=== PATIENT | male | born 1935 | race Caucasian/White ===

== ENCOUNTER 2016-07-25 07:01 | Outpatient (CLI) | payer MEDICARE | END 2016-07-25 07:02 | disposition home or self-care (01) | DX: Z79.899 Other long term (current) drug therapy (principal) ==

== ENCOUNTER 2017-03-10 06:53 | Outpatient (CLI) | payer MEDICARE ==
[2017-03-10 07:27] LABS: BUN - BLOOD UREA NITROGEN 15 mg/dL (6-20); CALCIUM 9.3 mg/dL (8.5-10.3); CARBON DIOXIDE - CO2 27 mmol/L (21-32); CHLORIDE 107 mmol/L (101-111); CHOL/HDL RATIO 2.7 (<5.0); CHOLESTEROL 120 mg/dL; CREATININE 1.1 mg/dL (0.6-1.2); GFR - MDRD 65 (>89); GLUCOSE 104 mg/dL (70-100); HDL CHOLESTEROL 45 mg/dL; LDL/HDL RATIO 1.4 (<3.6); POTASSIUM 4.1 mmol/L (3.5-5.0); SODIUM 141 mmol/L (135-145); TRIGLYCERIDES 55 mg/dL; VLDL CHOLESTEROL 11 mg/dL
[2017-03-10 07:31] LABS: HCT - HEMATOCRIT 41.9 % (42.0-52.0); HGB - HEMOGLOBIN 14.3 g/dL (14.0-18.0); MEAN CORPUSCULAR HEMOGLOBIN 30.3 pg (27.0-31.0); MEAN PLATELET VOLUME 7.7 fL (7.4-11.4); RED BLOOD COUNT 4.71 10^6/uL (4.70-6.10); RED CELL DISTRIBUTION WIDTH 14.8 % (12.0-15.0)
[2017-03-10 08:11] LABS: HEMOGLOBIN A1C 0.63 g/dL
== END 2017-03-10 06:54 | disposition home or self-care (01) ==
LOC: LAB 06:53
PROVIDERS: ATTEND Family Medicine
DX: R73.9 Hyperglycemia, unspecified (principal); Z79.899 Other long term (current) drug therapy
CPT/HCPCS: 36415; 80048; 80061; 83036; 84443

== ENCOUNTER 2017-10-05 23:29 | Outpatient (CLI) | payer MEDICARE | END 2017-10-05 23:30 | disposition critical access hospital (66) | LOC: EMS 23:29 | PROVIDERS: ATTEND Surgery | DX: R07.9 Chest pain, unspecified (principal) ==

== ENCOUNTER 2017-10-05 23:38 | Observation (INO) | payer MEDICARE ==
--- NOTE | 2017-10-05 23:38 | ED Physician Documentation ---
PD HPI FOCAL NEURO - Stated complaint Stated Complaint: STROKE LIKE SYMPTOMS - History obtained from History obtained from: Patient, Family, EMS - History of Present Illness Timing - onset: Enter time (22:40), Today Timing - details: Abrupt onset Time of symptom onset unknown: Time of onset unknown (went to sleep at approximately 21:00 without symptoms, awoke 22:40 with symptoms) Severity of deficit: Moderate Weakness: Face, Left Associated symptoms: Headache (mild bifrontal) Contributing factors: positive: Anticoagulated, Atrial fibrillation Baseline status: positive: A&OX3, ambulatory, indep Similar symptoms before: No diagnosis (has had similar symptoms in the past and was admitted to a hospital in [place] last year with testing that, per patient, did not reveal cause of symptoms) Recently seen: Not recently seen - Additional information Additional information: went to bed 9 PM feeling baseline state of health, awoke 10:40 PM with mild bifrontal headache and had slurred speech with expressive aphasia (formed thoughts but had difficulty both in word-finding as well as getting words out). On medics arrival, they found left facial droop, noted significant slurred speech and noted patient appeared to be frustrated with trying to express his thoughts. These symptoms and signs have nearly resolved prior to arrival. Blood sugar by finger stick was 96. Patient takes Plavix for atrial fibrillation Review of Systems Constitutional: reports: Reviewed and negative Eyes: reports: Reviewed and negative Ears: reports: Reviewed and negative Nose: reports: Reviewed and negative Throat: reports: Reviewed and negative Cardiac: reports: Reviewed and negative Respiratory: reports: Reviewed and negative GI: reports: Reviewed and negative : denies: Dysuria, Frequency, Incontinent Skin: reports: Reviewed and negative Musculoskeletal: reports: Reviewed and negative Neurologic: reports: Focal weakness, Difficulty speaking, Headache. denies: Generalized weakness, Numbness, Confused, Altered mental status, LOC PD PAST MEDICAL HISTORY - Past Medical History Past Medical History: Yes Cardiovascular: Hypertension, Atrial fibrillation - Present Medications Home Medications: Ambulatory Orders Medication Instructions Recorded Confirmed Aspirin [Children's Aspirin] 81 mg PO DAILY 08/27/13 10/06/17 Clopidogrel [Plavix] 75 mg PO DAILY 08/27/13 10/06/17 Famotidine [Pepcid] 20 mg PO BID 08/27/13 10/06/17 Metoprolol Succinate [Toprol Xl] 50 mg PO DAILY 08/27/13 10/06/17 Atorvastatin Calcium [Lipitor] 80 mg PO QPM 06/28/14 10/06/17 Multivitamin [Multivitamins] 1 tab PO DAILY 06/28/14 10/06/17 Niacin [Slo-Niacin] 1,000 mg PO DAILY 06/28/14 10/06/17 Levothyroxine [Synthroid] 112 mcg PO DAILY 03/04/15 10/06/17 Lisinopril 20 mg PO DAILY #30 tablet 03/04/15 10/06/17 Ubidecarenone [Coenzyme Q-10] 200 mg PO DAILY MDD 300mg 10/06/17 10/06/17 - Allergies Allergies/Adverse Reactions: Allergies Allergy/AdvReac Type Severity Reaction Status Date / Time Sulfa (Sulfonamide Allergy Hives Verified 03/04/15 07:57 Antibiotics) PD ED PE NORMAL - Vitals Vital signs reviewed: Yes - General General: Alert and oriented X 3, No acute distress, Well developed/nourished - HEENT HEENT: Moist mucous membranes - Neck Neck: Supple, no meningeal sign - Cardiac Cardiac: RRR, No murmur, No gallop, No rub - Respiratory Respiratory: No respiratory distress, Clear bilaterally - Abdomen Abdomen: Soft, Non tender - Derm Derm: Normal color, Warm and dry - Extremities Extremities: No edema - Neuro Neuro: Alert and oriented X 3, pallet repairer 2-12 intact, No motor deficit, No sensory deficit, Other (mild dysarthria) Eye Opening: Spontaneous Motor: Obeys Commands Verbal: Oriented GCS Score: 15 NIHSS - Level of Consciousness Level of consciousness: (0) Alert, Keenly responsive LOC Questions: (0) Answers both Q's correct LOC Commands: (0) Performs both correctly - Gaze Best Gaze: (0) Normal - Visual Visual: (0) No loss - Facial Palsy Facial Palsy: (0) Normal, symmetrical movement - Motor Arms (both separate) Motor Arm (right): (0) No drift Motor Arm (left): (0) No drift - Motor Legs (both separate) Motor Leg (right): (0) No drift Motor Leg (left): (0) No drift - Limb Ataxia Limb Ataxia: (0) Absent - Sensory Sensory: (0) Normal - Best Language Best Language: (0) No aphasia - Dysarthria Dysarthria: (1) [id number] dysarthria - Extinction and Inattention (formally neg Extinction and inattention: (0) No abnormality - Total Score/Results Total Score/Result: 1 Results - Vitals Vitals: Vital Signs - 24 hr 10/05/17 10/05/17 10/06/17 23:39 23:59 00:21 Temperature 36.5 C Heart Rate 94 56 L 51 L Respiratory 16 20 15 Rate Blood Pressure 160/83 H 160/83 H 201/97 H O2 Saturation 97 97 96 10/06/17 10/06/17 10/06/17 00:24 00:59 02:00 Temperature Heart Rate 53 L 52 L 55 L Respiratory 17 13 16 Rate Blood Pressure 185/95 H 183/90 H 182/92 H O2 Saturation 96 95 96 10/06/17 02:47 Temperature Heart Rate 54 L Respiratory 14 Rate Blood Pressure 158/108 H O2 Saturation 98 Oxygen O2 Source Room air - EKG (time done) No standard instances Rate: [place] (54) Rhythm: Sinus bradycardia [place]: LAD Intervals: Normal ME QRS: Normal Ischemia: Normal ST segments - Labs Labs: Laboratory Tests 10/05/17 10/05/17 10/05/17 23:54 23:54 23:54 WBC 6.0 RBC 4.87 Hgb 14.4 Hct 43.4 MCV 89.1 MCH 29.5 MCHC 33.1 RDW 14.6 Plt Count 146 MPV 7.2 L Neut # 2.6 Lymph # 2.2 [place] # 0.7 Eos # 0.5 Baso # 0.1 Absolute Nucleated RBC 0.00 Nucleated RBC % 0.0 PT 11.6 INR 1.0 APTT 27.5 Sodium 138 Potassium 4.0 Chloride 105 Carbon Dioxide 27 Anion Gap 6.0 BUN 15 Creatinine 1.1 Estimated GFR (MDRD) 64 L Glucose 103 H Calcium 9.1 Troponin I Urine Color Urine Clarity Urine pH Ur Specific [place] Urine Protein Urine Glucose (UA) Urine Ketones Urine Occult Blood Urine Nitrite Urine Bilirubin Urine Urobilinogen Ur Leukocyte Esterase Ur Microscopic Review Urine Culture Comments 10/05/17 10/06/17 23:54 00:18 WBC RBC Hgb Hct MCV MCH MCHC RDW Plt Count MPV Neut # Lymph # [place] # Eos # Baso # Absolute Nucleated RBC Nucleated RBC % PT INR APTT Sodium Potassium Chloride Carbon Dioxide Anion Gap BUN Creatinine Estimated GFR (MDRD) Glucose Calcium Troponin I < 0.04 Urine Color YELLOW Urine Clarity CLEAR Urine pH 7.0 Ur Specific [place] 1.015 Urine Protein TRACE Urine Glucose (UA) NEGATIVE Urine Ketones NEGATIVE Urine Occult Blood NEGATIVE Urine Nitrite NEGATIVE Urine Bilirubin NEGATIVE Urine Urobilinogen 0.2 (NORMAL) Ur Leukocyte Esterase NEGATIVE Ur Microscopic Review NOT INDICATED Urine Culture Comments NOT INDICATED - Rads (name of study) CT head Radiology: Prelim report reviewed, See rad report PD MEDICAL DECISION MAKING - ED course Complexity details: reviewed results, re-evaluated patient, considered differential, d/w patient, d/w family ED course: 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 D/W Dr. Post (on-call neurology at [facility]), recommends admit to [facility] for TTE, MRI/MRA brain, carotid dopplers. D/W Dr. Waddell, accepts admission to [facility] Departure - Departure Disposition: ED Place in Observation Clinical Impression: TIA (transient ischemic attack) Qualifiers: Transient cerebral ischemia type: unspecified Qualified Code(s): G45.9 - Transient cerebral ischemic attack, unspecified Condition: Stable Discharge Date/Time: 10/06/17 03:24
[2017-10-06 00:03] LABS: BASOPHILS # (AUTO) 0.1 10^3/uL (0.0-0.1); BASOPHILS % (AUTO) 1.1 %; EOSINOPHILS # (AUTO) 0.5 10^3/uL (0.0-0.7); EOSINOPHILS % (AUTO) 8.2 %; HGB - HEMOGLOBIN 14.4 g/dL (14.0-18.0); LYMPHOCYTES # (AUTO) 2.2 10^3/uL (1.5-3.5); LYMPHOCYTES % (AUTO) 36.8 %; MEAN CORPUSCULAR HEMOGLOBIN 29.5 pg (27.0-31.0); MEAN CORPUSCULAR HGB CONC 33.1 g/dL (32.0-36.0); MEAN CORPUSCULAR VOLUME 89.1 fL (80.0-94.0); MEAN PLATELET VOLUME 7.2 fL (7.4-11.4); MONOCYTES # (AUTO) 0.7 10^3/uL (0.0-1.0); MONOCYTES % (AUTO) 11.3 %; NEUTROPHILS # (AUTO) 2.6 10^3/uL (1.5-6.6); NEUTROPHILS % (AUTO) 42.6 %; PLT - PLATELET COUNT 146 10^3/uL (130-450); RED BLOOD COUNT 4.87 10^6/uL (4.70-6.10); RED CELL DISTRIBUTION WIDTH 14.6 % (12.0-15.0)
[2017-10-06 00:09] LABS: CALCIUM 9.1 mg/dL (8.5-10.3); CREATININE 1.1 mg/dL (0.6-1.2)
[2017-10-06 00:10] LABS: PT - PROTHROMBIN TIME 11.6 secs (9.9-12.6)
--- NOTE | 2017-10-06 00:25 | CT Report ---
EXAM: CT HEAD EXAM DATE: 10/06/2017 12:15 AM. CLINICAL HISTORY: Headache, weakness. COMPARISON: Brain MRI 03/04/2015. TECHNIQUE: Multiaxial CT images were obtained from the foramen magnum to the vertex. Reformats: Coron al. IV contrast: None. In accordance with CT protocol optimization, one or more of the following dose reduction techniques w ere utilized for this exam: automated exposure control, adjustment of mA and/or KV based on patient s ize, or use of iterative reconstructive technique. FINDINGS: Parenchyma: No intraparenchymal hemorrhage. No evidence of mass, midline shift, or CT findings of inf arction. Patchy periventricular and central areas of low-density involving white matter bilateral cer ebral hemispheres. Man-white differentiation is distinct. Extraaxial Spaces: Diffuse prominence of sulci. No subdural or epidural collections identified. Ventricles: Moderate enlargement of ventricles. No mass effect. No midline shift. Sinuses and Orbits: There is paranasal sinus mucosal thickening. No sinus fluid levels. Bones: No evidence of fracture or calvarial defect. Other: None. IMPRESSION: 1. No evidence of hemorrhage, infarct, or other acute abnormality. 2. Moderate microvascular disease. 3. Moderate diffuse volume loss. [facility] The call report notification system was initiated by Dr. Florian Franklin at 00:21 hrs on 10/06/17. The above findings were discussed with Dr. Enrique by Dr. Florian Franklin at 00:24 hrs on 10/06/17. Referring Provider Line: [phone] SITE ID: [id number]
[2017-10-06 00:33] LABS: BILIRUBIN,URINE NEGATIVE (NEGATIVE); GLUCOSE, URINE (UA) NEGATIVE (NEGATIVE); KETONES,URINE (UA) NEGATIVE (NEGATIVE); LEUKOCYTE ESTERASE, URINE NEGATIVE (NEGATIVE); NITRITE,URINE NEGATIVE (NEGATIVE); OCCULT BLOOD,URINE NEGATIVE (NEGATIVE); PROTEIN,URINE TRACE mg/dL (NEGATIVE); UROBILINOGEN,URINE 0.2 (NORMAL) E.U./dL (NORMAL)
[2017-10-06 00:34] LABS: CLARITY,URINE CLEAR (CLEAR)
[2017-10-06] MEDS ORDERED: PROCHLORPERAZINE 10 MG/2 ML VIAL IVP PRN (03:04)
[2017-10-06] MEDS ORDERED: oxyCODONE 5 MG TABLET PO PRN (03:04)
[2017-10-06] MEDS ORDERED: SODIUM CHLORIDE FLUSH 0.9% 10 ML SYRINGE IVP PRN (03:04)
[2017-10-06] MEDS ORDERED: TEMAZEPAM 15 MG CAPSULE PO PRN (03:04)
[2017-10-06] MEDS ORDERED: IBUPROFEN 600 MG TABLET PO PRN (03:04)
--- NOTE | 2017-10-06 03:14 | HISTORY & PHYSICAL EXAMINATION ---
Chief Complaint - Chief Complaint Chief Complaint: Right-sided weakness and slurring of speech History of Present Illness - Admitted From Admitted From:: HOme - History Obtained From Records Reviewed: yes History obtained from: patient, significant other Exam Limitations: none noted - History of Present Illness HPI Comment/Other: Mr. 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 Is also noted that he had a left-sided facial droop and some right-sided weakness. The symptoms self corrected rapidly over the next 1-2 hours to the point where now there is only a very slight facial droop noted. He was brought into the emergency department at [facility] and now scores 0 on the stroke scale. CT of the brain was negative for any acute pathology. Given the patient 's past medical history with multiple TIAs and his last full workup over a year ago is believed to be prudent to bring him in for the stroke workup at this time. He will be admitted to an observation bed and we will obtain an echocardiogram, carotid ultrasound, MRI, and MRA. History - Past Medical History Cardiovascular: reports: Hypertension, High cholesterol, Coronary artery disease , [place] Respiratory: reports: None Neuro: reports: None, TIA, Other (Multiple TIAs) Endocrine/Autoimmune: reports: HyPOthyroidism GI: reports: GERD : reports: Benign prostate hypertrophy, Other HEENT: reports: None Psych: reports: None Musculoskeletal: reports: Osteoarthritis Derm: reports: None MRSA Hx?: No - Past Surgical History Cardiovascular: reports: CABG, Coronary stent, AAA - Family & Social History Family History: Mother: , CVA/TIA, Father: , CAD, Hyperlipidemia , Hypertension, [place], Brother: , Cancer, CVA/TIA, Other family: Alive and Well (daughter), Diabetes, Type 1 Living arrangement: At home Living Situation: With spouse/s.o. - Substance History Use: Uses substance without health or social issues: Alcohol Abuse: Recurrent use of substance despite neg consequences: NONE Dependence: Experiences withdrawal or developed tolerances: NONE - POLST Patient has POLST: No POLST Status: DNR Meds/Allgy - Home Medications Home Medications: Ambulatory Orders Medication Instructions Recorded Confirmed Aspirin [Children's Aspirin] 81 mg PO DAILY 08/27/13 03/04/15 Clopidogrel [Plavix] 75 mg PO DAILY 08/27/13 03/04/15 Famotidine [Pepcid] 20 mg PO BID 08/27/13 03/04/15 Lisinopril [Prinivil] 10 mg PO DAILY 08/27/13 03/04/15 Metoprolol Succinate [Toprol Xl] 50 mg PO DAILY 08/27/13 03/04/15 Atorvastatin Calcium [Lipitor] 80 g PO QPM 06/28/14 03/04/15 Multivitamin [Multivitamins] 1 tab PO DAILY 06/28/14 03/04/15 Niacin [Slo-Niacin] 1,000 mg PO DAILY 06/28/14 03/04/15 Levothyroxine [Synthroid] 112 mcg PO DAILY 03/04/15 03/04/15 Lisinopril 20 mg PO DAILY #30 tablet 03/04/15 - Allergies Allergies/Adverse Reactions: Allergies Allergy/AdvReac Type Severity Reaction Status Date / Time Sulfa (Sulfonamide Allergy Hives Verified 03/04/15 07:57 Antibiotics) Review of Systems - Constitutional Constitutional: denies: Fatigue, Fever, Chills, Malaise - Eyes Eyes: denies: Amaurosis, Blurred vision, Field loss, Vision loss, Dipolpia - Ears, Nose & Throat Ears, Nose & Throat: denies: Ear pain, Vertigo, Nasal pain, Nasal discharge, Nosebleeds, Sore throat - Cardiovascular Cariovascular: reports: Other (History of atrial fibrillation, paroxysmal. Patient in normal sinus rhythm at this time.). denies: Irregular heart rate, Palpitations, Edema, Syncope - Respiratory Respiratory: denies: Cough, Sputum production, Wheezing, Snoring, Hemoptysis, SOB at rest, SOB with exertion - Gastrointestinal Gastrointestinal: denies: Abdominal pain, Abdominal distention, Constipation, Diarrhea, Change in bowel habits, Rectal bleeding - Genitourinary Genitourinary: denies: Dysuria, Frequency, Urgency, Hematuria - Musculoskeletal Musculoskeletal: denies: Muscle pain, Back pain, Muscle aches - Integumentary Integumentary: denies: Rash, Pruritis, Lesions, Dryness - Neurological Neurological: reports: Focal weakness, Slurred speech, Other (Right-sided weakness, resolved) - Psychiatric Psychiatric: denies: Depression, Anxiety, Suicidal, Hallucinations - Endocrine Endocrine: denies: Polyuria, Polydypsia, Polyphagia - Hematologic/Lymphatic Hematologic/Lymphatic: denies: Anemia, Bruising, Petechiae, Lymphadenopathy - All Other Systems All Other Systems: reports: Reviewed and negative Exam - Vital Signs Reviewed Vital Signs: Yes Vital Signs: Vital Signs x48h Temp Pulse Resp BP Pulse Ox 10/06/17 02:47 54 L 14 158/108 H 98 10/06/17 02:00 55 L 16 182/92 H 96 10/06/17 00:59 52 L 13 183/90 H 95 10/06/17 00:24 53 L 17 185/95 H 96 10/06/17 00:21 51 L 15 201/97 H 96 10/05/17 23:59 56 L 20 160/83 H 97 10/05/17 23:39 36.5 C 94 16 160/83 H 97 - Physical Exam General Appearance: positive: No acute distress, Alert, Anxious Eyes Bilateral: positive: Normal inspection, PERRL, EOMI, No lid inflammation, Conjunctivae nml, No scleral icterus ENT: positive: ENT inspection nml, Pharynx nml, No signs of dehydration Neck: positive: Nml inspection, Thyroid nml, No JVD, Trachea midline. negative : Thyromegaly Respiratory: positive: Chest non-tender, No respiratory distress, Breath sounds nml. negative: Wheezes, Rales, Rhonchi Cardiovascular: positive: Regular rate & rhythm, No murmur, No gallop Peripheral Pulses: positive: 1+ Abdomen: positive: Non-tender, No organomegaly, Nml bowel sounds, No distention. negative: Guarding, Rebound Back: positive: Nml inspection. negative: CVA tenderness (R), CVA tenderness (L ) Skin: positive: Color nml, No rash, Warm, Dry. negative: Cyanosis Extremities: positive: Non-tender, Full ROM, Nml appearance Neurologic/Psychiatric: positive: Oriented x3, CN's nml (2-12), Motor nml, Sensation nml, Mood/affect nml (There may be a very slight residual left-sided facial droopit is very minimal.) Conclusion/Plan - Problem List (1) TIA (transient ischemic attack) Conclusion/Plan: At this time the patient's symptoms are resolving and a CAT scan of the head has been negative however we have not completely ruled out a CVA. We will obtain an MRI of the brain and MRA tomorrow to definitively rule out a CVA. We will also obtain an echocardiogram and a carotid ultrasound. The patient will continue on his Plavix. Qualifiers: Transient cerebral ischemia type: unspecified Qualified Code(s): G45.9 - Transient cerebral ischemic attack, unspecified (2) Coronary artery disease Conclusion/Plan: No complaints of chest pain, continue atorvastatin, Plavix, lisinopril, and metoprolol. (3) Hyperlipidemia Conclusion/Plan: Continue niacin and atorvastatin. Statins are indicated for both the coronary artery disease and previous TIAs. (4) Hypertension Conclusion/Plan: Blood pressure is elevated however I do not wish to correct in the event that there may be a small hidden CVA which would potentially become a watershed infarct by lowering the blood pressure. I will wait until after the MRI results are back before addressing the blood pressure unless the diastolic becomes greater than 120 or the systolic is greater than 180. (5) Hypothyroidism Conclusion/Plan: Presumably well-managed, continue Synthroid. - Lab Results Lab results reviewed: Yes Fish Bones: 10/05/17 23:54 10/05/17 23:54 - Diagnostic Imaging Results Diagnostic Imaging Results: positive: Final report reviewed Diagnostic Imaging Results Comments: EXAM: CT HEAD EXAM DATE: 10/06/2017 12:15 AM. CLINICAL HISTORY: Headache, weakness. COMPARISON: Brain MRI 03/04/2015. TECHNIQUE: Multiaxial CT images were obtained from the foramen magnum to the vertex. Reformats: Coronal. IV contrast: None. In accordance with CT protocol optimization, one or more of the following dose reduction techniques were utilized for this exam: automated exposure control, adjustment of mA and/or KV based on patient size, or use of iterative reconstructive technique. FINDINGS: Parenchyma: No intraparenchymal hemorrhage. No evidence of mass, midline shift, or CT findings of infarction. Patchy periventricular and central areas of low-density involving white matter bilateral cerebral hemispheres. Man-white differentiation is distinct. Extraaxial Spaces: Diffuse prominence of sulci. No subdural or epidural collections identified. Ventricles: Moderate enlargement of ventricles. No mass effect. No midline shift. Sinuses and Orbits: There is paranasal sinus mucosal thickening. No sinus fluid levels. Bones: No evidence of fracture or calvarial defect. Other: None. IMPRESSION: 1. No evidence of hemorrhage, infarct, or other acute abnormality. 2. Moderate microvascular disease. 3. Moderate diffuse volume loss. Core Measures - Anticipated LOS I expect patient to be DC'd or transferred within 96 hours.: Yes - DVT/VTE - Prophylaxis VTE/DVT Device ordered at admit?: Yes
[2017-10-06] MEDS ORDERED: D5.45NS W/20 MEQ KCL 1,000 ML IV SCH ×2 (04:00→10:28)
[2017-10-06] MEDS ORDERED: LEVOTHYROXINE 112 MCG TABLET PO SCH (07:00)
[2017-10-06] MEDS ORDERED: MULTIVITAMIN TABLET PO SCH (08:00)
[2017-10-06] MEDS ORDERED: GADOBUTROL 10 MMOL/10 ML SYRINGE ONE (08:01)
[2017-10-06] MEDS ORDERED: METOPROLOL SUCCINATE 50 MG TABLET PO SCH ×3 (09:00→15:14)
[2017-10-06] MEDS ORDERED: LISINOPRIL 20 MG TABLET PO SCH ×3 (09:00→15:14)
[2017-10-06] MEDS ORDERED: FAMOTIDINE 20 MG TABLET PO SCH ×2 (09:00)
[2017-10-06] MEDS ORDERED: POLYETHYLENE GLYCOL 3350 17 GM PACKET PO SCH (09:00)
[2017-10-06] MEDS ORDERED: SODIUM CHLORIDE FLUSH 0.9% 10 ML SYRINGE IVP SCH (09:00)
[2017-10-06] MEDS ORDERED: CLOPIDOGREL 75 MG TABLET PO SCH (09:00)
[2017-10-06] MEDS ORDERED: NON FORMULARY MED (Multivitamin [Multivitamins] 1 TAB) PO SCH (09:00)
[2017-10-06] MEDS ORDERED: GADOBUTROL 10 MMOL/10 ML SYRINGE IVP ONE (11:40)
--- NOTE | 2017-10-06 12:31 | MRI Preliminary Report ---
Exam: MRI BRAIN W/WO IMPRESSION: 1. No acute stroke, hemorrhage or enhancing mass. 2. Stable findings of prominent diffuse atrophy and chronic white matter disease. 3. Stable prominent ventriculomegaly. The pattern of ventricular enlargement raises the possibility o f hydrocephalus, this could include normal pressure hydrocephalus. 4. Stable findings of bilateral sinus and mastoid disease. [facility]IA SITE ID: [id number]
--- NOTE | 2017-10-06 12:41 | MRI Report ---
EXAM: MRI BRAIN WITHOUT AND WITH CONTRAST EXAM DATE: 10/06/2017 11:53 AM. CLINICAL HISTORY: Slurred speech and headache. The ordering provider has requested this test to evalu ate for TIA or CVA. COMPARISON: 03/04/2015. TECHNIQUE: Multiplanar, multisequence T1-weighted and fluid-sensitive MR sequences of the brain were performed. Sequences optimized for routine evaluation. Other: None. IV Contrast: Without and with 9 m L Gadavist. FINDINGS: Brain Volume: Stable-appearing moderate to severe diffuse atrophy. Parenchyma: No restricted diffusion to suggest acute or recent ischemic infarct. No cerebral hemorrha ge. No midline shift or abnormal subdural fluid collection. Similar findings of moderate to severe ch ronic white matter disease, nonspecific, likely from aging and chronic microangiopathy. No evidence f or intracranial enhancing or space-occupying tumor-like mass. Ventricles/Cisterns: Stable prominent ventriculomegaly. Orbits: Symmetric and unremarkable. Sella Turcica: Stable findings of a probable partially empty sella. No space-occupying mass in the re gion of the pituitary fossa. IAC: Symmetric and unremarkable. Vasculature: Normal signal flow void is seen in the major arterial structures at the skull base. The dural sinuses are patent and enhance normally. Sinuses: Stable bilateral mastoid fluid opacities. Again seen are findings of prominent chronic-appea ring bilateral ethmoid sinus opacity and mucosal thickening. Stable mild bifrontal mucosal thickening . Bones: No focal pathologic appearing marrow signal changes. Other: None. IMPRESSION: 1. No acute stroke, hemorrhage or enhancing mass. 2. Stable findings of prominent diffuse atrophy and chronic white matter disease. 3. Stable prominent ventriculomegaly. The pattern of ventricular enlargement raises the possibility o f hydrocephalus, this could include normal pressure hydrocephalus. 4. Stable findings of bilateral sinus and mastoid disease. RAD[facility] Referring Provider Line: [phone] SITE ID: [id number]
--- NOTE | 2017-10-06 13:55 | Ultrasound Report ---
CAROTID DUPLEX: 10/06/2017 CLINICAL INDICATION: TIA. TECHNIQUE: Real-time sonographic vascular imaging was performed by the user interface engineer through the carotid arteries utilizing both color-flow and Doppler spectral analysis. Multiple patient care representative static images were saved for review. RIGHT Vessel PSV cm/sec EDV cm/sec ICA/CCA RSV Ratio Degree of Stenosis Plaque Estimate % RCCA Prox 72 -- -- RCCA Dist 70 9 -- RECA 125 -- -- RT BULB 100 -- 1.4 LILY Prox 62 15 0.88 LILY Mid 72 20 1.02 LILY Dist 79 14 1.12 RVA 32 -- -- RVA flow direction: Antegrade LEFT Vessel PSV cm/sec EDV cm/sec ICA/CCA RSV Ratio Degree of Stenosis Plaque Estimate % LCCA Prox 109 -- -- LCCA Dist 44 7 -- LECA 88 -- -- LFT BULB 48 10 1.09 LICA Prox 47 13 1.06 LICA Mid 62 16 1.4 LICA Dist 84 25 1.9 LVA 37 -- -- LVA flow direction: Antegrade Velocity criteria are extrapolated from diameter data as defined by the Society of Radiologists in Ultrasound Consensus Conference Radiology 2003; 229; 340-346. Degree of Stenosis % ICA PSV cm/sec ICA EDV cm/sec ICA/CCA PSV Ratio Plaque Estimate % Normal < 125 < 40 < 2.0 None <50 < 125 < 40 < 2.0 < 50 50-69 125-130 40-100 2.0-4.0 >/=50 >/=70 but less than near occlusion > 230 > 100 > 4.0 >/=50 Near occlusion High, low or undetectable Variable Variable Visible Total occlusion Undetectable Not applicable Not applicable No detectable lumen FINDINGS RIGHT: There is minimal plaquing in the right carotid bifurcation, without evidence of a focal hemodynamically significant carotid stenosis. LEFT: There is mild plaquing in the left carotid bifurcation, without evidence of a focal hemodynamically significant stenosis. The vertebral arteries demonstrate antegrade flow bilaterally. IMPRESSION: NO EVIDENCE OF A HEMODYNAMICALLY SIGNIFICANT STENOSIS. TD: 10/06/2017 09:58 MTDD
--- NOTE | 2017-10-06 15:43 | Discharge Plan ---
Discharge Plan Disposition: 01 Home, Self Care Condition: Stable Diet: Cardiac Activity Restrictions: Activity as Tolerated Shower Restrictions: No Driving Restrictions: No Additional Instructions or Follow Up instructions: Resume all of your pre-hospital medications. See your doctor and/or Neurologist in follow-up of this latest symptom. No Smoking: If you smoke, Please STOP! Call for help.
[2017-10-06 16:09] VITALS: BP 149/84
--- NOTE | 2017-10-06 16:27 | PROVIDER PROGRESS NOTE ---
Assessment/Plan - Problem List (1) Coronary artery disease Assessment/Plan: No cardiac sx while here and examis stable. 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 Continue cardiac meds planned. (2) Hypertension Assessment/Plan: Permissive HTN was allowed today, until his brain MRI showed no evidence of new CVA. Then BP hold parameters were changed for better BP control. Continue present anti-hypertensive meds planned. (3) TIA (transient ischemic attack) Qualifiers: Transient cerebral ischemia type: unspecified Qualified Code(s): G45.9 - Transient cerebral ischemic attack, unspecified Assessment/Plan: Brain MRI showed similar dilated ventricles to previous exams (Pt is aware of this and has seen a Neurologist in the past also). 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 Carotid Doppler showed mild plaque buikat. I discussed these findings with patient. He can be DCh on same meds as pre-hospitalization. Follow up: with his PCP and/or Neurologist. Code status: DNR Time required to complete entire Discharge: 30 min. - Current Meds Current Meds: Current Medications Generic Name Dose Route Start Last Admin Trade Name Freq PRN Reason Stop Dose Admin Clopidogrel Bisulfate 75 mg 10/06/17 09:00 10/06/17 10:57 Plavix PO 75 mg DAILY ADAM Administration Famotidine 20 mg 10/06/17 09:00 10/06/17 10:57 Pepcid PO 20 mg BID ADAM Administration Potassium Chloride/Dextrose/Sod Cl 1,000 mls @ 30 mls/hr 10/06/17 10:28 10/06 10:58 D5.45ns W/20 Meq Kcl IV 0 mls/hr .[id number] ADAM Infusion Levothyroxine Sodium 112 mcg 10/06/17 07:00 10/06/17 06:48 Synthroid PO 112 mcg QDAC ADAM Administration Multivitamins 1 tab 10/06/17 08:00 10/06/17 10:57 Theragran PO 1 tab DAILYWM ADAM Administration Polyethylene Glycol 17 gm 10/06/17 09:00 10/06/17 07:31 Miralax PO Not Given DAILY ADAM Sodium Chloride 10 ml 10/06/17 09:00 10/06/17 07:32 Normal Saline Flush 0.9% IVP Not Given 0100,0900,1700 ADAM - Lab Result Fish Bone Diagrams: 10/05/17 23:54 10/05/17 23:54 - Additional Planning My Orders: My Active Orders 10/06/17 10:28 D5.45ns W/20 Meq KCl 1,000 ml IV 30 mls/hr 10/06/17 15:14 Lisinopril [Zestril] 20 mg PO DAILY Metoprolol Succinate [Toprol Xl] 50 mg PO DAILY 10/06/17 15:43 Discharge [RC] .ONCE Initiate Discharge Checklist [RC] .ONCE Subjective - Subjective Patient Reports: Feeling Better, Resting Comfortably Objective Vital Signs: Vital Signs - 24 hr 10/06/17 10/06/17 10/06/17 03:16 03:30 03:49 Temperature 36.6 C 36.9 C 36.9 C Heart Rate 65 Heart Rate [ 54 L 54 L Brachial] Respiratory 14 16 18 Rate Blood Pressure 176/94 H Blood Pressure [Left Brachial artery] Blood Pressure 178/98 H 178/98 H [Right Brachial artery] O2 Saturation 97 97 97 10/06/17 10/06/17 10/06/17 09:00 13:00 16:06 Temperature 36.3 C L Heart Rate Heart Rate [ 60 62 60 Brachial] Respiratory 16 18 20 Rate Blood Pressure Blood Pressure 149/84 H [Left Brachial artery] Blood Pressure 188/84 H 153/89 H [Right Brachial artery] O2 Saturation 98 98 96 Oxygen O2 Source Room air I&O (Last 24 Hrs): Intake and Output Totals x24h 10/04/17 10/05/17 10/06/17 23:59 23:59 23:59 Intake Total 1345.5 Balance 1345.5 General: Alert, Oriented x3 HEENT: Atraumatic Neck: Supple, +2 carotid pulse wo bruit Neuro: Non Focal Cardiovascular: Regular rate Respiratory: No respiratory distress Extremities: No edema - Results Results: Laboratory Results WBC 6.0 x10^3/uL (4.8-10.8) 10/05/17 23:54 RBC 4.87 10^6/uL (4.70-6.10) 10/05/17 23:54 Hgb 14.4 g/dL (14.0-18.0) 10/05/17 23:54 Hct 43.4 % (42.0-52.0) 10/05/17 23:54 MCV 89.1 fL (80.0-94.0) 10/05/17 23:54 MCH 29.5 pg (27.0-31.0) 10/05/17 23:54 MCHC 33.1 g/dL (32.0-36.0) 10/05/17 23:54 RDW 14.6 % (12.0-15.0) 10/05/17 23:54 Plt Count 146 10^3/uL (130-450) 10/05/17 23:54 MPV 7.2 fL (7.4-11.4) L 10/05/17 23:54 Neut # 2.6 10^3/uL (1.5-6.6) 10/05/17 23:54 Lymph # 2.2 10^3/uL (1.5-3.5) 10/05/17 23:54 [place] # 0.7 10^3/uL (0.0-1.0) 10/05/17 23:54 Eos # 0.5 10^3/uL (0.0-0.7) 10/05/17 23:54 Baso # 0.1 10^3/uL (0.0-0.1) 10/05/17 23:54 Absolute Nucleated RBC 0.00 x10^3/uL 10/05/17 23:54 Nucleated RBC % 0.0 /100WBC 10/05/17 23:54 PT 11.6 secs (9.9-12.6) 10/05/17 23:54 INR 1.0 (0.8-1.2) 10/05/17 23:54 APTT 27.5 secs (24.9-33.3) 10/05/17 23:54 Sodium 138 mmol/L (135-145) 10/05/17 23:54 Potassium 4.0 mmol/L (3.5-5.0) 10/05/17 23:54 Chloride 105 mmol/L (101-111) 10/05/17 23:54 Carbon Dioxide 27 mmol/L (21-32) 10/05/17 23:54 Anion Gap 6.0 (6-13) 10/05/17 23:54 BUN 15 mg/dL (6-20) 10/05/17 23:54 Creatinine 1.1 mg/dL (0.6-1.2) 10/05/17 23:54 Estimated GFR (MDRD) 64 (>89) L 10/05/17 23:54 Glucose 103 mg/dL (70-100) H 10/05/17 23:54 Calcium 9.1 mg/dL (8.5-10.3) 10/05/17 23:54 Troponin I < 0.04 ng/mL (<0.49) 10/05/17 23:54 Urine Color YELLOW 10/06/17 00:18 Urine Clarity CLEAR (CLEAR) 10/06/17 00:18 Urine pH 7.0 PH (5.0-7.5) 10/06/17 00:18 Ur Specific [place] 1.015 (1.002-1.030) 10/06/17 00:18 Urine Protein TRACE mg/dL (NEGATIVE) 10/06/17 00:18 Urine Glucose (UA) NEGATIVE mg/dL (NEGATIVE) 10/06/17 00:18 Urine Ketones NEGATIVE mg/dL (NEGATIVE) 10/06/17 00:18 Urine Occult Blood NEGATIVE (NEGATIVE) 10/06/17 00:18 Urine Nitrite NEGATIVE (NEGATIVE) 10/06/17 00:18 Urine Bilirubin NEGATIVE (NEGATIVE) 10/06/17 00:18 Urine Urobilinogen 0.2 (NORMAL) E.U./dL (NORMAL) 10/06/17 00:18 Ur Leukocyte Esterase NEGATIVE (NEGATIVE) 10/06/17 00:18 Ur Microscopic Review NOT INDICATED 10/06/17 00:18 Urine Culture Comments NOT INDICATED 10/06/17 00:18
[2017-10-06] MEDS ORDERED: ATORVASTATIN CALCIUM PO SCH (21:00)
[2017-10-06] MEDS ORDERED: ATORVASTATIN 40 MG TABLET PO SCH (21:00)
== END 2017-10-06 16:27 | disposition home or self-care (01) ==
LOC: EDUNIT# → ED 23:38 → OBS 10-06 03:04
PROVIDERS: ADMIT Hospitalist; ATTEND Internal Medicine
DX: G45.9 Transient cerebral ischemic attack, unspecified (principal); I48.0 Paroxysmal atrial fibrillation; I10 Essential (primary) hypertension; E78.5 Hyperlipidemia, unspecified; I25.10 Atherosclerotic heart disease of native coronary artery without angina pectoris; I25.2 Old myocardial infarction; E03.9 Hypothyroidism, unspecified; K21.9 Gastro-esophageal reflux disease without esophagitis; N40.0 Benign prostatic hyperplasia without lower urinary tract symptoms; Z95.5 Presence of coronary angioplasty implant and graft; Z79.02 Long term (current) use of antithrombotics/antiplatelets; Z79.82 Long term (current) use of aspirin; Z95.1 Presence of aortocoronary bypass graft; Z66 Do not resuscitate
CPT/HCPCS: 36415; 70450; 70553; 80048; 81003; 84484; 85025; 85610; 85730; 93005; 93306; 93880; 96360; 96361; 99285; A9270; A9585; G0378; 81001; 87086

== ENCOUNTER 2017-10-20 09:23 | Outpatient (CLI) | payer MEDICARE | END 2017-10-20 09:24 | disposition critical access hospital (66) | LOC: EMS 09:23 | PROVIDERS: ATTEND Surgery | DX: R51 Headache (principal); R03.0 Elevated blood-pressure reading, without diagnosis of hypertension; R53.1 Weakness ==

== ENCOUNTER 2017-10-20 09:33 | Emergency (ER) | payer MEDICARE ==
[2017-10-20 10:12] LABS: BASOPHILS % (AUTO) 0.8 %; EOSINOPHILS # (AUTO) 0.4 10^3/uL (0.0-0.7); EOSINOPHILS % (AUTO) 7.3 %; HGB - HEMOGLOBIN 14.5 g/dL (14.0-18.0); LYMPHOCYTES # (AUTO) 1.6 10^3/uL (1.5-3.5); LYMPHOCYTES % (AUTO) 30.2 %; MEAN CORPUSCULAR HEMOGLOBIN 30.1 pg (27.0-31.0); MEAN CORPUSCULAR HGB CONC 33.9 g/dL (32.0-36.0); MEAN CORPUSCULAR VOLUME 88.7 fL (80.0-94.0); MEAN PLATELET VOLUME 7.4 fL (7.4-11.4); MONOCYTES # (AUTO) 0.4 10^3/uL (0.0-1.0); MONOCYTES % (AUTO) 8.1 %; NEUTROPHILS # (AUTO) 2.8 10^3/uL (1.5-6.6); NEUTROPHILS % (AUTO) 53.6 %; PLT - PLATELET COUNT 135 10^3/uL (130-450); RED CELL DISTRIBUTION WIDTH 14.3 % (12.0-15.0); WHITE BLOOD COUNT 5.2 x10^3/uL (4.8-10.8)
[2017-10-20 10:26] LABS: ALBUMIN 4.4 g/dL (3.2-5.5); ALBUMIN/GLOBULIN RATIO 1.3 (1.0-2.2); CALCIUM 9.1 mg/dL (8.5-10.3); CREATININE 1.1 mg/dL (0.6-1.2); TOTAL PROTEIN 7.7 g/dL (6.7-8.2)
--- NOTE | 2017-10-20 10:40 | ED Physician Documentation ---
History of Present Illness - Stated complaint Stated Complaint: HTN - Chief complaint Chief Complaint: General - History obtained from History obtained from: Patient, Family (Spouse) - Additonal information Additional information: The patient is an 82-year-old male who presents with hypertension and headache. His blood pressure this morning was measured at 179/107. He has a history of similar symptoms, and was hospitalized here 2 weeks ago after a TIA. He underwent workup including echocardiogram and brain MRI at that time. The MRI revealed no acute stroke, hemorrhage, or enhancing mass. 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 He was seen by his primary physician 3 days ago, and there was no change in his medications which include lisinopril, Toprol 50 mg daily, Plavix and aspirin. Past medical history is also significant for paroxysmal atrial fibrillation and for coronary artery disease, status post CABG and status post coronary stents 2. He denies any numbness, weakness, slurring of speech, or change in his visual ability this morning. He denies chest pain, shortness of breath, nausea or vomiting. His headache is bitemporal in location, which is no different from his previous headaches. He is concerned about the persistence of hypertension with the associated headaches. Review of Systems Constitutional: denies: Fever Eyes: denies: Decreased vision Ears: denies: Tinnitus/ringing Nose: denies: Congestion Throat: denies: Sore throat Cardiac: denies: Chest pain / pressure, Palpitations Respiratory: denies: Dyspnea, Cough GI: denies: Abdominal Pain, Nausea, Vomiting : denies: Dysuria Skin: denies: Rash Musculoskeletal: denies: Joint swelling Neurologic: reports: Headache. denies: Focal weakness, Numbness PD PAST MEDICAL HISTORY - Past Medical History Past Medical History: Yes Cardiovascular: Hypertension, Atrial fibrillation Respiratory: None Neuro: TIA, Other Endocrine/Autoimmune: HyPOthyroidism GI: GERD : Benign prostate hypertrophy, Other HEENT: None Psych: None Musculoskeletal: Osteoarthritis Derm: None - Past Surgical History Past Surgical History: Yes Cardiovascular: CABG, Coronary stent, AAA - Present Medications Home Medications: Ambulatory Orders Medication Instructions Recorded Confirmed Aspirin [Children's Aspirin] 81 mg PO DAILY 08/27/13 10/06/17 Clopidogrel [Plavix] 75 mg PO DAILY 08/27/13 10/06/17 Famotidine [Pepcid] 20 mg PO BID 08/27/13 10/06/17 Metoprolol Succinate [Toprol Xl] 50 mg PO DAILY 08/27/13 10/06/17 Atorvastatin Calcium [Lipitor] 80 mg PO QPM 06/28/14 10/06/17 Multivitamin [Multivitamins] 1 tab PO DAILY 06/28/14 10/06/17 Niacin [Slo-Niacin] 1,000 mg PO DAILY 06/28/14 10/06/17 Levothyroxine [Synthroid] 112 mcg PO DAILY 03/04/15 10/06/17 Lisinopril 20 mg PO DAILY #30 tablet 03/04/15 10/06/17 Fluticasone [Flonase] 2 sprays ZANE DAILY 10/06/17 10/06/17 Ubidecarenone [Coenzyme Q-10] 200 mg PO DAILY MDD 300mg 10/06/17 10/06/17 - Allergies Allergies/Adverse Reactions: Allergies Allergy/AdvReac Type Severity Reaction Status Date / Time Sulfa (Sulfonamide Allergy Hives Verified 03/04/15 07:57 Antibiotics) - Social History Does the pt smoke?: No Smoking Status: Never smoker Does the pt drink ETOH?: Yes Does the pt have substance abuse?: No - Immunizations Immunizations are current?: Yes - POLST Patient has POLST: No POLST Status: DNR PD ED PE NORMAL - Vitals Vital signs reviewed: Yes (hypertensive, at 176/100.) - General General: Alert and oriented X 3, Well developed/nourished - HEENT HEENT: Atraumatic, PERRL, EOMI, Other (Fundi not well visualized due to cataracts bilaterally.) - Neck Neck: Supple, no meningeal sign, No adenopathy, No JVD - Cardiac Cardiac: RRR, No murmur - Respiratory Respiratory: No respiratory distress, Clear bilaterally - Abdomen Abdomen: Soft, Non tender - Back Back: No CVA TTP - Derm Derm: No rash - Extremities Extremities: No edema, No calf tenderness / cord - Neuro Neuro: Alert and oriented X 3, music educator 2-12 intact, No motor deficit, No sensory deficit, Normal speech Results - Vitals Vitals: Vital Signs - 24 hr 10/20/17 10/20/17 10/20/17 09:34 09:54 10:55 Temperature 36.5 C Heart Rate 54 L 52 L 48 L Respiratory 18 17 11 L Rate Blood Pressure 176/100 H 176/100 H 182/99 H O2 Saturation 97 100 99 10/20/17 11:56 Temperature Heart Rate 48 L Respiratory 16 Rate Blood Pressure 160/92 H O2 Saturation 100 Oxygen O2 Source Room air - EKG (time done) 09:45 Rate: Rate (enter#) (50) Rhythm: NSR [place]: Normal QRS: LVH Ischemia: Non specific changes (T-wave flattening in I and aVL.) Compare to prior EKG: Unchanged from prior EKG - Labs Labs: Laboratory Tests 10/20/17 10/20/17 10/20/17 10:06 10:06 10:06 WBC 5.2 RBC 4.80 Hgb 14.5 Hct 42.6 MCV 88.7 MCH 30.1 MCHC 33.9 RDW 14.3 Plt Count 135 MPV 7.4 Neut # 2.8 Lymph # 1.6 [place] # 0.4 Eos # 0.4 Baso # 0.0 Absolute Nucleated RBC 0.00 Nucleated RBC % 0.0 Sodium 140 Potassium 4.4 Chloride 107 Carbon Dioxide 27 Anion Gap 6.0 BUN 16 Creatinine 1.1 Estimated GFR (MDRD) 64 L Glucose 100 Calcium 9.1 Total Bilirubin 1.0 AST 59 H ALT 60 Alkaline Phosphatase 60 Troponin I < 0.04 Total Protein 7.7 Albumin 4.4 Globulin 3.3 Albumin/Globulin Ratio 1.3 Lipase 31 Urine Color Urine Clarity Urine pH Ur Specific [place] Urine Protein Urine Glucose (UA) Urine Ketones Urine Occult Blood Urine Nitrite Urine Bilirubin Urine Urobilinogen Ur Leukocyte Esterase Ur Microscopic Review Urine Culture Comments 10/20/17 10:55 WBC RBC Hgb Hct MCV MCH MCHC RDW Plt Count MPV Neut # Lymph # [place] # Eos # Baso # Absolute Nucleated RBC Nucleated RBC % Sodium Potassium Chloride Carbon Dioxide Anion Gap BUN Creatinine Estimated GFR (MDRD) Glucose Calcium Total Bilirubin AST ALT Alkaline Phosphatase Troponin I Total Protein Albumin Globulin Albumin/Globulin Ratio Lipase Urine Color YELLOW Urine Clarity CLEAR Urine pH 7.5 Ur Specific [place] 1.010 Urine Protein NEGATIVE Urine Glucose (UA) NEGATIVE Urine Ketones NEGATIVE Urine Occult Blood NEGATIVE Urine Nitrite NEGATIVE Urine Bilirubin NEGATIVE Urine Urobilinogen 0.2 (NORMAL) Ur Leukocyte Esterase NEGATIVE Ur Microscopic Review NOT INDICATED Urine Culture Comments NOT INDICATED PD MEDICAL DECISION MAKING - ED course Complexity details: reviewed old records, reviewed results, re-evaluated patient , considered differential, d/w patient, d/w family, d/w bi consultant ED course: The patient's presentation is significant for persistent hypertension with associated headache. He has no neurologic deficit, chest pain, or shortness of breath. His lab results are unremarkable. His headache is similar to his recurrent paroxysmal headaches. His blood pressure gradually improved while in the emergency department, as did his headache. I discussed his condition with Dr. Rider who is on-call for his primary physician, Dr. Goodson. He recommends that no change be made in his current antihypertensive medication, stating that when seen in the clinic 3 days ago the patient's blood pressure was 124/60. He recommends that the patient document his blood pressure over the weekend, and contact Dr. Goodson on Monday. Treatment in the emergency department included administration of acetaminophen 650 mg orally. By the time of discharge the patient reports improvement of his headache. His blood pressure had slightly improved to 160/92. I discussed with the patient and his my discussion with Dr. Rider, follow up with his primary physician, as well as potentially worrisome signs or symptoms that should prompt reevaluation in the emergency department. Departure - Departure Disposition: 01 Home, Self Care Clinical Impression: Hypertension Qualifiers: Hypertension type: unspecified Qualified Code(s): I10 - Essential (primary) hypertension Headache Qualifiers: Headache type: unspecified Headache chronicity pattern: episodic headache Intractability: not intractable Qualified Code(s): R51 - Headache Condition: Stable Instructions: ED Cephalgia Unspecified, ED HTN Established Follow-Up: Guy Goodson MD [Physician No Access] - Comments: Continue your currently prescribed blood pressure medicine. You can use Tylenol if needed for headache. Monitor your blood pressure over the weekend, and contact Dr. Goodson on Monday with the results. Return to the emergency department if you develop increasing headache, chest pain, numbness or weakness, or otherwise worsening symptoms. Discharge Date/Time: 10/20/17 11:56
[2017-10-20 11:08] LABS: BILIRUBIN,URINE NEGATIVE (NEGATIVE); GLUCOSE, URINE (UA) NEGATIVE (NEGATIVE); KETONES,URINE (UA) NEGATIVE (NEGATIVE); LEUKOCYTE ESTERASE, URINE NEGATIVE (NEGATIVE); NITRITE,URINE NEGATIVE (NEGATIVE); OCCULT BLOOD,URINE NEGATIVE (NEGATIVE); PH,URINE 7.5 PH (5.0-7.5); PROTEIN,URINE NEGATIVE (NEGATIVE); UROBILINOGEN,URINE 0.2 (NORMAL) E.U./dL (NORMAL)
[2017-10-20 11:13] LABS: CLARITY,URINE CLEAR (CLEAR)
[2017-10-20] MEDS ORDERED: ACETAMINOPHEN 325 MG TABLET PO STA (11:22)
[2017-10-20 11:57] VITALS: BP 160/92
== END 2017-10-20 11:56 | disposition home or self-care (01) ==
LOC: EDUNIT# → ED 09:33
DX: I10 Essential (primary) hypertension (principal); R51 Headache; Z86.73 Personal history of transient ischemic attack (TIA), and cerebral infarction without residual deficits; I48.0 Paroxysmal atrial fibrillation; I25.10 Atherosclerotic heart disease of native coronary artery without angina pectoris; Z95.1 Presence of aortocoronary bypass graft; E03.9 Hypothyroidism, unspecified; K21.9 Gastro-esophageal reflux disease without esophagitis; N40.0 Benign prostatic hyperplasia without lower urinary tract symptoms; Z79.82 Long term (current) use of aspirin; Z79.02 Long term (current) use of antithrombotics/antiplatelets
CPT/HCPCS: 36415; 80053; 81003; 83690; 84484; 85025; 93005; 99283; 99284; A9270; 81001; 87086

== ENCOUNTER 2018-04-26 22:47 | Outpatient (CLI) | payer MEDICARE | END 2018-04-26 22:48 | disposition critical access hospital (66) | LOC: EMS 22:47 | PROVIDERS: ATTEND Surgery | DX: R03.0 Elevated blood-pressure reading, without diagnosis of hypertension (principal); R51 Headache ==

== ENCOUNTER 2018-04-26 23:02 | Emergency (ER) | payer MEDICARE ==
[2018-04-26] MEDS ORDERED: SODIUM CHLORIDE 0.9% 1,000 ML IV ONE (23:22)
[2018-04-26] MEDS ORDERED: METOCLOPRAMIDE 10 MG/2 ML VIAL IVP STA (23:22)
[2018-04-26 23:33] LABS: BASOPHILS % (AUTO) 0.6 %; EOSINOPHILS # (AUTO) 0.3 10^3/uL (0.0-0.7); EOSINOPHILS % (AUTO) 4.8 %; HGB - HEMOGLOBIN 14.3 g/dL (14.0-18.0); LYMPHOCYTES # (AUTO) 1.3 10^3/uL (1.5-3.5); MEAN CORPUSCULAR HEMOGLOBIN 30.6 pg (27.0-31.0); MEAN CORPUSCULAR HGB CONC 34.4 g/dL (32.0-36.0); MEAN PLATELET VOLUME 7.8 fL (7.4-11.4); MONOCYTES # (AUTO) 0.5 10^3/uL (0.0-1.0); MONOCYTES % (AUTO) 7.7 %; NEUTROPHILS # (AUTO) 4.8 10^3/uL (1.5-6.6); NEUTROPHILS % (AUTO) 68.9 %; PLT - PLATELET COUNT 145 10^3/uL (130-450); RED BLOOD COUNT 4.67 10^6/uL (4.70-6.10); RED CELL DISTRIBUTION WIDTH 14.3 % (12.0-15.0)
[2018-04-26 23:46] LABS: ALBUMIN 4.2 g/dL (3.2-5.5); ALBUMIN/GLOBULIN RATIO 1.2 (1.0-2.2); BILIRUBIN,TOTAL 1.2 mg/dL (0.2-1.0); CALCIUM 9.1 mg/dL (8.5-10.3); CREATININE 1.1 mg/dL (0.6-1.2); TOTAL PROTEIN 7.6 g/dL (6.7-8.2)
--- NOTE | 2018-04-27 00:09 | CT Report ---
Reason: church, elevated blood pressure Procedure Date: 04/26/2018 Accession Number: [id number] / [id number] Procedure: CT - Head W/O CPT Code: FULL RESULT: EXAM: CT HEAD EXAM DATE: 04/26/2018 11:44 PM. CLINICAL HISTORY: Headache. Elevated blood pressure. COMPARISON: HEAD W/O 10/06/2017 12:07 AM. TECHNIQUE: Multiaxial CT images were obtained from the foramen magnum to the vertex. Reformats: Sagittal and coronal. IV contrast: None. In accordance with CT protocol optimization, one or more of the following dose reduction techniques were utilized for this exam: automated exposure control, adjustment of mA and/or KV based on patient size, or use of iterative reconstructive technique. FINDINGS: Parenchyma: No intraparenchymal hemorrhage. No evidence of mass, midline shift, or CT findings of infarction. Man-white differentiation is distinct. Moderate chronic microvascular ischemic change in the cerebral white matter bilaterally appears stable. Extraaxial Spaces: There is moderate generalized cerebral volume loss. This is stable. No subdural or epidural collections identified. Ventricles: Mild to moderate ventriculomegaly is unchanged. This appears to be in proportion to the degree of atrophy. No definite hydrocephalus. Sinuses and Orbits: Mild mucosal thickening in the ethmoid air cells bilaterally has not changed significantly. No sinus fluid levels. Bones: No evidence of fracture or calvarial defect. Other: None. IMPRESSION: 1. No acute intracranial abnormality. No significant change compared to 10/06/2017. 2. Moderate generalized cerebral volume loss and chronic microvascular change appears stable. 3. No intracranial mass lesion or mass-effect. RADIA
--- NOTE | 2018-04-27 00:12 | XRAY Report ---
Reason: HTN Procedure Date: 04/27/2018 Accession Number: [id number] / [id number] Procedure: XR - Chest 2 View X-Ray CPT Code: 79648 FULL RESULT: EXAM: CHEST RADIOGRAPHY EXAM DATE: 04/27/2018 12:00 AM. CLINICAL HISTORY: HTN. COMPARISON: 08/27/2013 8:44 AM. TECHNIQUE: 2 views. FINDINGS: Lungs/Pleura: No focal opacities evident. No pleural effusion. No pneumothorax. Normal volumes. Mediastinum: The heart is not enlarged. There is some tortuosity of the thoracic aorta. Other: None. IMPRESSION: 1. No acute infiltrates. RADIA
[2018-04-27 00:26] LABS: BILIRUBIN,URINE NEGATIVE (NEGATIVE); GLUCOSE, URINE (UA) NEGATIVE (NEGATIVE); KETONES,URINE (UA) NEGATIVE (NEGATIVE); LEUKOCYTE ESTERASE, URINE NEGATIVE (NEGATIVE); NITRITE,URINE NEGATIVE (NEGATIVE); OCCULT BLOOD,URINE NEGATIVE (NEGATIVE); PH,URINE 7.5 PH (5.0-7.5); PROTEIN,URINE NEGATIVE (NEGATIVE); UROBILINOGEN,URINE 0.2 (NORMAL) E.U./dL (NORMAL)
[2018-04-27 00:29] LABS: CLARITY,URINE CLEAR (CLEAR)
--- NOTE | 2018-04-27 00:45 | ED Physician Documentation ---
PD HPI HEADACHE - Stated complaint Stated Complaint: HTN/PATTERSON - Chief complaint Chief Complaint: Neuro - History obtained from History obtained from: Patient - History of Present Illness Timing - onset: Today Timing - onset during: Rest Timing - details: Gradual onset Severity Comments: moderate Quality: Throbbing, Aching, Tightness. No: Thunderclap, Stabbing, Like head is exploding Associated symptoms: Nausea. No: Fever, Stiff neck, Vomiting, Weakness, Syncope, Seizure, Eye pain Improved by: Rest, Meds Worsened by: Light - Additional information Additional information: 82-year-old male presents the emergency department with complaints of a headache similar to headaches he is experienced in the past. The patient also reports an elevated blood pressure today. The patient typically has high blood pressure but is high hypertension was higher than normal today. The patient is denying focal motor weakness, confusion, speech changes, neck pain, fevers, chills. The patient does complain of vague numbness. The patient denies chest pain or shortness of breath. The patient has had improvement in his headache since taking medications at home. Symptoms are described as moderate. No specific triggering factors. Review of Systems Constitutional: denies: Fever Eyes: denies: Discharge Nose: denies: Congestion Throat: denies: Sore throat Cardiac: denies: Chest pain / pressure Respiratory: denies: Dyspnea GI: denies: Abdominal Pain : denies: Dysuria Skin: denies: Rash Neurologic: reports: Headache. denies: Generalized weakness, Focal weakness, Difficulty speaking, Near syncope, Syncope, Seizure, Confused, Altered mental status, Unresponsive, LOC Immunocompromised: denies: Chemotherapy PD PAST MEDICAL HISTORY - Past Medical History Cardiovascular: Hypertension, Atrial fibrillation Respiratory: None Endocrine/Autoimmune: HyPOthyroidism GI: GERD : Benign prostate hypertrophy, Other HEENT: None Psych: None Musculoskeletal: Osteoarthritis Derm: None - Past Surgical History Past Surgical History: Yes Cardiovascular: CABG, Coronary stent, AAA - Present Medications Home Medications: Ambulatory Orders Medication Instructions Recorded Confirmed Aspirin [Children's Aspirin] 81 mg PO DAILY 08/27/13 10/06/17 Clopidogrel [Plavix] 75 mg PO DAILY 08/27/13 10/06/17 Famotidine [Pepcid] 20 mg PO BID 08/27/13 10/06/17 Metoprolol Succinate [Toprol Xl] 50 mg PO DAILY 08/27/13 10/06/17 Atorvastatin Calcium [Lipitor] 80 mg PO QPM 06/28/14 10/06/17 Multivitamin [Multivitamins] 1 tab PO DAILY 06/28/14 10/06/17 Niacin [Slo-Niacin] 1,000 mg PO DAILY 06/28/14 10/06/17 Levothyroxine [Synthroid] 112 mcg PO DAILY 03/04/15 10/06/17 Lisinopril 20 mg PO DAILY #30 tablet 03/04/15 10/06/17 Fluticasone [Flonase] 2 sprays ZANE DAILY 10/06/17 10/06/17 Ubidecarenone [Coenzyme Q-10] 200 mg PO DAILY MDD 300mg 10/06/17 10/06/17 - Allergies Allergies/Adverse Reactions: Allergies Allergy/AdvReac Type Severity Reaction Status Date / Time Sulfa (Sulfonamide Allergy Hives Verified 04/26/18 23:10 Antibiotics) - Social History Does the pt smoke?: No Smoking Status: Never smoker Does the pt drink ETOH?: Yes Does the pt have substance abuse?: No - Immunizations Immunizations are current?: Yes - POLST Patient has POLST: No POLST Status: DNR PD ED PE NORMAL - General General: Alert and oriented X 3, No acute distress - HEENT HEENT: Atraumatic, PERRL, EOMI, Ears normal, Moist mucous membranes - Neck Neck: Supple, no meningeal sign - Cardiac Cardiac: RRR, Strong equal pulses - Respiratory Respiratory: No respiratory distress, Clear bilaterally - Abdomen Abdomen: Soft, Non tender, Non distended - Derm Derm: Normal color - Extremities Extremities: No deformity, Normal ROM s pain - Neuro Neuro: Alert and oriented X 3, 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 The patient has equal acrobatic dancer strength, negative pronator drift, normal sensation light touch in the upper extremities. The patient has normal strength in the lower extremities and normal sensation light touch. The patient has a normal gait which is steady.) Results - Vitals Vitals: Vital Signs - 24 hr 04/26/18 04/27/18 22:59 00:53 Temperature 36.4 C L Heart Rate 60 70 Respiratory 17 14 Rate Blood Pressure 187/91 H 177/92 H O2 Saturation 98 97 Oxygen O2 Source Room air - EKG (time done) No standard instances Rate: Rate (enter#) (50) Rhythm: Sinus bradycardia Intervals: Prolonged MS, 1st degree AVB QRS: Normal Ischemia: Q waves, Non specific changes Compare to prior EKG: Changed from prior EKG - Labs Labs: Laboratory Tests 04/26/18 04/26/18 04/26/18 23:25 23:25 23:25 WBC 7.0 RBC 4.67 L Hgb 14.3 Hct 41.5 L MCV 89.0 MCH 30.6 MCHC 34.4 RDW 14.3 Plt Count 145 MPV 7.8 Neut # (Auto) 4.8 Lymph # (Auto) 1.3 L [place] # (Auto) 0.5 Eos # (Auto) 0.3 Baso # (Auto) 0.0 Absolute Nucleated RBC 0.00 Nucleated RBC % 0.0 Sodium 138 Potassium 4.2 Chloride 102 Carbon Dioxide 28 Anion Gap 8.0 BUN 17 Creatinine 1.1 Estimated GFR (MDRD) 64 L Glucose 116 H Calcium 9.1 Total Bilirubin 1.2 H AST 76 H ALT 78 H Alkaline Phosphatase 64 Troponin I < 0.04 B-Natriuretic Peptide Total Protein 7.6 Albumin 4.2 Globulin 3.4 Albumin/Globulin Ratio 1.2 Lipase 36 Urine Color Urine Clarity Urine pH Ur Specific [place] Urine Protein Urine Glucose (UA) Urine Ketones Urine Occult Blood Urine Nitrite Urine Bilirubin Urine Urobilinogen Ur Leukocyte Esterase Ur Microscopic Review Urine Culture Comments 04/26/18 04/27/18 23:25 00:15 WBC RBC Hgb Hct MCV MCH MCHC RDW Plt Count MPV Neut # (Auto) Lymph # (Auto) [place] # (Auto) Eos # (Auto) Baso # (Auto) Absolute Nucleated RBC Nucleated RBC % Sodium Potassium Chloride Carbon Dioxide Anion Gap BUN Creatinine Estimated GFR (MDRD) Glucose Calcium Total Bilirubin AST ALT Alkaline Phosphatase Troponin I B-Natriuretic Peptide 170 H Total Protein Albumin Globulin Albumin/Globulin Ratio Lipase Urine Color YELLOW Urine Clarity CLEAR Urine pH 7.5 Ur Specific [place] 1.020 Urine Protein NEGATIVE Urine Glucose (UA) NEGATIVE Urine Ketones NEGATIVE Urine Occult Blood NEGATIVE Urine Nitrite NEGATIVE Urine Bilirubin NEGATIVE Urine Urobilinogen 0.2 (NORMAL) Ur Leukocyte Esterase NEGATIVE Ur Microscopic Review NOT INDICATED Urine Culture Comments NOT INDICATED - Rads (name of study) CT Head Radiology: Final report received (1. No acute intracranial abnormality. No significant change compared to 10/06/2017. 2. Moderate generalized cerebral volume loss and chronic microvascular change appears stable. 3. No intracranial mass lesion or mass-effect. ) PD MEDICAL DECISION MAKING - ED course ED course: I reviewed the patient's prior MRA of the head and neck from February 2015: There was no evidence of stenosis or aneurysm seen on that study. The patient also had a MRI back in September 2017. In recent carotid ultrasound. The patient's symptoms today are more suggestive of a headache, currently there is no evidence of any acute abnormality on the patient's workup. Given the recent MRA showing no aneurysm currently I think there is no role for a lumbar puncture at this point. The patient's symptoms are much improved and currently he appears appropriate for discharge and further workup as an outpatient. I discussed the findings and plan with the patient and he understands and agrees to the plan. I discussed warning signs and recommended returning to the emergency department immediately for worsening or any concerns. Departure - Departure Disposition: 01 Home, Self Care Clinical Impression: Elevated blood pressure reading Headache Qualifiers: Headache type: other headache syndrome Qualified Code(s): G44.89 - Other headache syndrome Condition: Good Instructions: High Blood Pressure, ED Cephalgia Unspecified Comments: Please follow-up with primary care for further workup and evaluation of your symptoms. Please return to the emergency department for worsening symptoms or any concerns Discharge Date/Time: 04/27/18 01:26
[2018-04-27 00:54] VITALS: BP 177/92
== END 2018-04-27 01:26 | disposition home or self-care (01) ==
LOC: EDBD → EDUNIT# → ED 23:02
DX: G44.89 Other headache syndrome (principal); I10 Essential (primary) hypertension; I44.0 Atrioventricular block, first degree; R00.1 Bradycardia, unspecified; Z79.02 Long term (current) use of antithrombotics/antiplatelets; Z79.82 Long term (current) use of aspirin
CPT/HCPCS: 36415; 70450; 71046; 80053; 81001; 81003; 83690; 83880; 84484; 85025; 87086; 93005; 96361; 96374; 99282; 99284

== ENCOUNTER 2018-08-28 17:30 | Outpatient (CLI) | payer MEDICARE | END 2018-08-28 17:31 | disposition critical access hospital (66) | LOC: EMS 17:30 | PROVIDERS: ATTEND Surgery | DX: R51 Headache (principal) ==

== ENCOUNTER 2018-08-28 17:48 | Emergency (ER) | payer MEDICARE ==
[2018-08-28] MEDS ORDERED: HYDROcod/ACETAM 5/325 MG TABLET PO STA (18:18)
--- NOTE | 2018-08-28 18:19 | ED Physician Documentation ---
History of Present Illness - Stated complaint Stated Complaint: PATTERSON - Chief complaint Chief Complaint: General - History obtained from History obtained from: Patient - History of Present Illness Timing: Today (83-year-old gentleman with history of headaches. Also history of coronary disease on Plavix. He developed a gradual onset bifrontal headache today with mild nausea and mild photophobia. He had some left arm numbness which is gone. He took aspirin at home which was helpful but it did not relieve it completely. He says he only rarely gets headaches but review of the chart shows that this is approximately the fourth or fifth visit for headache within the last 12 months with negative workups previously.) Review of Systems Ten Systems: 10 systems reviewed and negative Constitutional: denies: Fever, Chills Nose: denies: Rhinorrhea / runny nose, Congestion Cardiac: denies: Chest pain / pressure, Palpitations Respiratory: denies: Dyspnea PD PAST MEDICAL HISTORY - Past Medical History Cardiovascular: Hypertension, Atrial fibrillation Respiratory: None Endocrine/Autoimmune: HyPOthyroidism GI: GERD : Benign prostate hypertrophy, Other HEENT: None Psych: None Musculoskeletal: Osteoarthritis Derm: None - Past Surgical History Past Surgical History: Yes Cardiovascular: CABG, Coronary stent, AAA - Present Medications Home Medications: Ambulatory Orders Medication Instructions Recorded Confirmed Aspirin [Children's Aspirin] 81 mg PO DAILY 08/27/13 10/06/17 Clopidogrel [Plavix] 75 mg PO DAILY 08/27/13 10/06/17 Famotidine [Pepcid] 20 mg PO BID 08/27/13 10/06/17 Metoprolol Succinate [Toprol Xl] 50 mg PO DAILY 08/27/13 10/06/17 Atorvastatin Calcium [Lipitor] 80 mg PO QPM 06/28/14 10/06/17 Multivitamin [Multivitamins] 1 tab PO DAILY 06/28/14 10/06/17 Niacin [Slo-Niacin] 1,000 mg PO DAILY 06/28/14 10/06/17 Levothyroxine [Synthroid] 112 mcg PO DAILY 03/04/15 10/06/17 Lisinopril 20 mg PO DAILY #30 tablet 03/04/15 10/06/17 Fluticasone [Flonase] 2 sprays ZANE DAILY 10/06/17 10/06/17 Ubidecarenone [Coenzyme Q-10] 200 mg PO DAILY MDD 300mg 10/06/17 10/06/17 - Allergies Allergies/Adverse Reactions: Allergies Allergy/AdvReac Type Severity Reaction Status Date / Time Sulfa (Sulfonamide Allergy Hives Verified 04/26/18 23:10 Antibiotics) - Social History Does the pt smoke?: No Smoking Status: Never smoker Does the pt drink ETOH?: Yes Does the pt have substance abuse?: No - Immunizations Immunizations are current?: Yes - POLST Patient has POLST: No POLST Status: DNR PD ED PE NORMAL - Vitals Vital signs reviewed: Yes - General General: Alert and oriented X 3, No acute distress - HEENT HEENT: PERRL, EOMI - Neck Neck: Supple, no meningeal sign, No bony TTP - Cardiac Cardiac: RRR, No murmur - Respiratory Respiratory: No respiratory distress, Clear bilaterally - Abdomen Abdomen: Non tender - Neuro Neuro: Alert and oriented X 3, decorating instructor 2-12 intact, Other (NIHSS at 1815 = zero) Eye Opening: Spontaneous Motor: Obeys Commands Verbal: Oriented GCS Score: 15 - Psych Psych: Normal mood, Normal affect Results - Vitals Vitals: Vital Signs - 24 hr 08/28/18 08/28/18 18:00 19:20 Temperature 36.5 C Heart Rate 55 L 50 L Respiratory 18 16 Rate Blood Pressure 179/91 H 172/87 H O2 Saturation 97 97 Oxygen O2 Source Room air - Rads (name of study) CT head Radiology: EMP read contemporaneously (Mild ventriculomegaly, right mastoiditis new since April.) PD MEDICAL DECISION MAKING - ED course ED course: This is an 83-year-old gentleman with vascular disease in his with a tension headache given that he is on Plavix cranial imaging was done. This was remarkable for potential mastoiditis although clinically he does not have this. He is not tender over the mastoid in his right TM looks normal. Case discussed by phone with Dr. Parth Martinez, ENT in [place] who felt that this could be safely ignored for now but they are happy to follow-up with him as an outpatient. Departure - Departure Disposition: 01 Home, Self Care Clinical Impression: Elevated blood pressure reading Headache Qualifiers: Headache type: tension-type Headache chronicity pattern: acute headache Intractability: not intractable Qualified Code(s): G44.209 - Tension-type headache, unspecified, not intractable Hypertension Qualifiers: Hypertension type: essential hypertension Qualified Code(s): I10 - Essential (primary) hypertension Condition: Good Record reviewed to determine appropriate education?: Yes Instructions: ED Cephalgia Unspecified Comments: As discussed there was a CAT scan finding, concerning for mastoiditis. Clinically you do not have this but it is worth a second opinion. I recommend f oraciolowing up with [facility] which has offices both in [place] in [place]. The [place] office phone number is [phone]. Call tomorrow for an appointment. Return for new or worsening symptoms. Continue current medications.
--- NOTE | 2018-08-28 19:25 | CT Report ---
Reason: headache Procedure Date: 08/28/2018 Accession Number: [id number] / [id number] Procedure: CT - HEAD WO CPT Code: FULL RESULT: EXAM: CT HEAD EXAM DATE: 08/28/2018 07:05 PM. CLINICAL HISTORY: Headache. COMPARISON: HEAD W/O 04/26/2018 11:44 PM. TECHNIQUE: Multiaxial CT images were obtained from the foramen magnum to the vertex. Reformats: Sagittal and coronal. IV contrast: None. In accordance with CT protocol optimization, one or more of the following dose reduction techniques were utilized for this exam: automated exposure control, adjustment of mA and/or KV based on patient size, or use of iterative reconstructive technique. FINDINGS: Parenchyma: No intraparenchymal hemorrhage. No evidence of mass, midline shift, or CT findings of acute infarction. Man-white differentiation is distinct. Periventricular white matter hypodensity likely represent small vessel ischemic disease. Extraaxial Spaces: There is generalized volume loss. No subdural or epidural collections identified. Ventricles: There is ventriculomegaly, not significantly out of proportion to degree of volume loss present. No acute ventricular abnormalities are seen. Sinuses and Orbits: There is right mastoiditis. No acute paranasal sinus opacification. Bones: No evidence of fracture or calvarial defect. Other: None. IMPRESSION: 1. No acute intracranial CT abnormality. There is no evidence of hemorrhage or mass-effect. 2. There is mild ventriculomegaly, not significantly out of proportion to degree of volume loss present. 3. There is right mastoiditis. RADIA
[2018-08-28 20:12] VITALS: BP 173/93
== END 2018-08-28 20:08 | disposition home or self-care (01) ==
LOC: EDUNIT# → ED 17:48
DX: G44.209 Tension-type headache, unspecified, not intractable (principal); I10 Essential (primary) hypertension; I25.10 Atherosclerotic heart disease of native coronary artery without angina pectoris; Z86.79 Personal history of other diseases of the circulatory system; Z79.02 Long term (current) use of antithrombotics/antiplatelets
CPT/HCPCS: 70450; 99283; A9270; 80053; 83690; 85025; 85651; 86140

== ENCOUNTER 2018-10-16 18:02 | Emergency (ER) | payer MEDICARE ==
--- NOTE | 2018-10-16 19:35 | ED Physician Documentation ---
PD HPI ABD PAIN - Stated complaint Stated Complaint: LRQ PX - Chief complaint Chief Complaint: Abd Pain - History obtained from History obtained from: Patient - History of Present Illness Timing - onset: Other (This is an 83-year-old gentleman with history of AAA repair with stenting x2, atrial fibrillation, and stroke on Plavix. He is been having ongoing on and off issues with vertigo since last year and I saw him about 2 months ago and he had evidence of mastoiditis on CT. Subsequently he followed up with an ear nose and throat physician was on a 3-week course of oral antibiotics and his hearing is coming back. He still has on and off vertigo that is worse with turning his head and on and off headaches that are worse. Today he comes in mostly because of abdominal pain that is been intermittent in the right lower quadrant for 2 weeks. It is a lancinating sharp pain that lasts for seconds to minutes at a time. He has had normal bowel movements. He declines pain medication for right now. He saw his physician who ordered an ultrasound which was done and normal per his recollection although it was not done here so I do not have formal results.) Review of Systems Ten Systems: 10 systems reviewed and negative Constitutional: denies: Fever, Chills Ears: reports: Loss of hearing. denies: Ear pain, Drainage/discharge Nose: reports: Rhinorrhea / runny nose GI: reports: Abdominal Pain. denies: Nausea, Vomiting, Constipation, Diarrhea, Hematemesis, Bloody / black stool PD PAST MEDICAL HISTORY - Past Medical History Past Medical History: Yes Cardiovascular: Hypertension, Atrial fibrillation Respiratory: None Endocrine/Autoimmune: HyPOthyroidism GI: GERD : Benign prostate hypertrophy, Other HEENT: None Psych: None Musculoskeletal: Osteoarthritis Derm: None - Past Surgical History Past Surgical History: Yes Cardiovascular: CABG, Coronary stent, AAA - Present Medications Home Medications: Ambulatory Orders Medication Instructions Recorded Confirmed RX: Aspirin [Children's Aspirin] 81 mg PO DAILY 08/27/13 10/06/17 RX: Clopidogrel [Plavix] 75 mg PO DAILY 08/27/13 10/06/17 RX: Famotidine [Pepcid] 20 mg PO BID 08/27/13 10/06/17 RX: Metoprolol Succinate [Toprol 50 mg PO DAILY 08/27/13 10/06/17 Xl] RX: Atorvastatin Calcium [Lipitor] 80 mg PO QPM 06/28/14 10/06/17 RX: Multivitamin [Multivitamins] 1 tab PO DAILY 06/28/14 10/06/17 RX: Niacin [Slo-Niacin] 1,000 mg PO DAILY 06/28/14 10/06/17 RX: Levothyroxine [Synthroid] 112 mcg PO DAILY 03/04/15 10/06/17 RX: Lisinopril 20 mg PO DAILY #30 tablet 03/04/15 10/06/17 RX: Fluticasone [Flonase] 2 sprays ZANE DAILY 10/06/17 10/06/17 RX: Ubidecarenone [Coenzyme Q-10] 200 mg PO DAILY MDD 300mg 10/06/17 10/06/17 - Allergies Allergies/Adverse Reactions: Allergies Allergy/AdvReac Type Severity Reaction Status Date / Time Sulfa (Sulfonamide Allergy Hives Verified 04/26/18 23:10 Antibiotics) - Social History Does the pt smoke?: No Smoking Status: Never smoker Does the pt drink ETOH?: Yes Does the pt have substance abuse?: No - Immunizations Immunizations are current?: Yes - POLST Patient has POLST: No POLST Status: DNR PD ED PE NORMAL - Vitals Vital signs reviewed: Yes - General General: Alert and oriented X 3, No acute distress - HEENT HEENT: PERRL, EOMI, Other (No mastoid tenderness. There is some sclerosis of the right TM and serous otitis without otitis media. He has a little bit of rightward nystagmus on quick gaze, no left nystagmus.) - Neck Neck: Supple, no meningeal sign, No bony TTP - Cardiac Cardiac: RRR, No murmur - Respiratory Respiratory: No respiratory distress, Clear bilaterally - Abdomen Abdomen: Other (Mild tenderness to palpation in the right lower quadrant without surgical signs, slightly hyperactive bowel tones. No midline surgical scars.) - Back Back: No CVA TTP, No spinal TTP - Extremities Extremities: No edema, No calf tenderness / cord - Neuro Neuro: Alert and oriented X 3, Normal speech, Other (Normal finger to nose and heel to antunez testing) Eye Opening: Spontaneous Motor: Obeys Commands Verbal: Oriented GCS Score: 15 Results - Vitals Vitals: Vital Signs - 24 hr 10/16/18 10/16/18 18:09 20:49 Temperature 36.6 C 36.1 C L Heart Rate 52 L 67 Respiratory 16 14 Rate Blood Pressure 146/77 H 127/86 H O2 Saturation 99 97 Oxygen O2 Source Room air - Labs Labs: Laboratory Tests 10/16/18 10/16/18 10/16/18 19:43 19:43 19:52 WBC 6.0 RBC 4.56 L Hgb 13.7 L Hct 40.7 L MCV 89.3 MCH 30.1 MCHC 33.7 RDW 14.7 Plt Count 138 MPV 7.6 Neut # (Auto) 3.0 Lymph # (Auto) 1.7 [place] # (Auto) 0.6 Eos # (Auto) 0.5 Baso # (Auto) 0.1 Absolute Nucleated RBC 0.00 Nucleated RBC % 0.0 Sodium 141 Potassium 4.0 Chloride 106 Carbon Dioxide 26 Anion Gap 9.0 BUN 19 Creatinine 1.1 Estimated GFR (MDRD) 64 L Glucose 91 Calcium 9.2 Total Bilirubin 1.1 H AST 60 H ALT 56 Alkaline Phosphatase 69 Total Protein 7.9 Albumin 4.4 Globulin 3.5 Albumin/Globulin Ratio 1.3 Lipase 43 Urine Color YELLOW Urine Clarity CLEAR Urine pH 5.5 Ur Specific [place] 1.025 Urine Protein NEGATIVE Urine Glucose (UA) NEGATIVE Urine Ketones NEGATIVE Urine Occult Blood NEGATIVE Urine Nitrite NEGATIVE Urine Bilirubin NEGATIVE Urine Urobilinogen 0.2 (NORMAL) Ur Leukocyte Esterase NEGATIVE Ur Microscopic Review NOT INDICATED Urine Culture Comments NOT INDICATED - Rads (name of study) CT Angio abd/pelvis Radiology: EMP read contemporaneously (Diverticulosis without itis, no problem with endovascula repair, NAD.) PD MEDICAL DECISION MAKING - ED course ED course: 83-year-old gentleman with history of vascular repair presents with subacute and mild right lower quadrant pain that is intermittent with relatively benign examination here. Pain is not severe and he declines pain medication. He does not appear ill or in extremis. His diagnostics were negative here and he was reassured and primary care follow-up was advised. Departure - Departure Disposition: 01 Home, Self Care Clinical Impression: Abdominal pain Condition: Good Record reviewed to determine appropriate education?: Yes Instructions: ED Abdominal Pain Unkn Cause Comments: Your CAT scan did not show any acute abnormalities. The aorta repair looks ok. Call your doctor to arrange a follow-up appointment, make the next available appointment. In the interim, return anytime if worse or if new symptoms develop. Discharge Date/Time: 10/16/18 21:16
[2018-10-16] MEDS ORDERED: IOVERSOL 320 100 ML VIAL IVP ONE ×2 (19:46→20:23)
[2018-10-16 19:48] LABS: BASOPHILS # (AUTO) 0.1 10^3/uL (0.0-0.1); BASOPHILS % (AUTO) 0.8 %; EOSINOPHILS # (AUTO) 0.5 10^3/uL (0.0-0.7); EOSINOPHILS % (AUTO) 8.8 %; HGB - HEMOGLOBIN 13.7 g/dL (14.0-18.0); LYMPHOCYTES # (AUTO) 1.7 10^3/uL (1.5-3.5); MEAN CORPUSCULAR HEMOGLOBIN 30.1 pg (27.0-31.0); MEAN CORPUSCULAR HGB CONC 33.7 g/dL (32.0-36.0); MEAN CORPUSCULAR VOLUME 89.3 fL (80.0-94.0); MEAN PLATELET VOLUME 7.6 fL (7.4-11.4); MONOCYTES # (AUTO) 0.6 10^3/uL (0.0-1.0); MONOCYTES % (AUTO) 10.6 %; NEUTROPHILS % (AUTO) 50.8 %; PLT - PLATELET COUNT 138 10^3/uL (130-450); RED BLOOD COUNT 4.56 10^6/uL (4.70-6.10); RED CELL DISTRIBUTION WIDTH 14.7 % (12.0-15.0)
[2018-10-16 19:58] LABS: ALBUMIN 4.4 g/dL (3.2-5.5); ALBUMIN/GLOBULIN RATIO 1.3 (1.0-2.2); BILIRUBIN,TOTAL 1.1 mg/dL (0.2-1.0); CALCIUM 9.2 mg/dL (8.5-10.3); CREATININE 1.1 mg/dL (0.6-1.2); TOTAL PROTEIN 7.9 g/dL (6.7-8.2)
[2018-10-16 20:04] LABS: BILIRUBIN,URINE NEGATIVE (NEGATIVE); GLUCOSE, URINE (UA) NEGATIVE (NEGATIVE); KETONES,URINE (UA) NEGATIVE (NEGATIVE); LEUKOCYTE ESTERASE, URINE NEGATIVE (NEGATIVE); NITRITE,URINE NEGATIVE (NEGATIVE); OCCULT BLOOD,URINE NEGATIVE (NEGATIVE); PH,URINE 5.5 PH (5.0-7.5); PROTEIN,URINE NEGATIVE (NEGATIVE); UROBILINOGEN,URINE 0.2 (NORMAL) E.U./dL (NORMAL)
[2018-10-16 20:05] LABS: CLARITY,URINE CLEAR (CLEAR)
[2018-10-16 20:49] VITALS: BP 127/86
--- NOTE | 2018-10-16 20:51 | CT Report ---
Reason: IV only, R abd pain, H/O AAA with stent x 2 Procedure Date: 10/16/2018 Accession Number: [id number] / [id number] Procedure: CT - ANGIO ABDOMEN/PELVIS W CPT Code: FULL RESULT: EXAM: CT ANGIOGRAM ABDOMEN AND PELVIS WITH CONTRAST EXAM DATE: 10/16/2018 08:25 PM. CLINICAL HISTORY: Right-sided abdominal pain. History of abdominal aortic aneurysm. COMPARISONS: None available. TECHNIQUE: Routine helical CT angiogram imaging was performed through the abdomen and pelvis in the arterial phase. IV contrast: [id number] 100ML. Enteric contrast: No. Reconstructions: Coronal, sagittal, and 3D MIP reconstructions. In accordance with CT protocol optimization, one or more of the following dose reduction techniques were utilized for this exam: automated exposure control, adjustment of mA and/or KV based on patient size, or use of iterative reconstructive technique. FINDINGS: Vasculature: There are findings of previous endovascular repair of the abdominal aorta with a bifurcated endograft. The proximal aspect of the endograft is in the proximal abdominal aorta above the level of the celiac axis origin. There is no significant luminal narrowing of the aorta or iliac arteries. No endoleak. The outer diameter of the abdominal aorta at the bifurcation measures 3.7 cm AP. The external iliac arteries are patent and normal in caliber. No evidence of dissection. The proximal inferior mesenteric artery demonstrates decreased enhancement but the vessel is patent distal to the origin. Lung Bases: Unremarkable. Abdominal Solid Organs: The liver, spleen, pancreas and adrenal glands are unremarkable. There is a left renal cyst. No renal mass or hydronephrosis. Peritoneal Cavity: No free fluid or free air. No lymphadenopathy. Pelvic Organs: Urinary bladder is unremarkable. There are multiple diverticula within the sigmoid and descending colon. No abscess or bowel obstruction. Bones: No significant abnormality. Other: None. IMPRESSION: 1. Colonic diverticulosis without acute diverticulitis. 2. Previous endovascular repair of abdominal aorta and iliac arteries without visualized endoleak or dissection. 3. No other localizing acute inflammatory process. RADIA
== END 2018-10-16 21:16 | disposition home or self-care (01) ==
LOC: ED 18:02
DX: R10.31 Right lower quadrant pain (principal); E03.9 Hypothyroidism, unspecified; I10 Essential (primary) hypertension; I48.91 Unspecified atrial fibrillation; Z79.01 Long term (current) use of anticoagulants; Z79.82 Long term (current) use of aspirin; Z95.1 Presence of aortocoronary bypass graft; Z95.5 Presence of coronary angioplasty implant and graft; Z86.73 Personal history of transient ischemic attack (TIA), and cerebral infarction without residual deficits
CPT/HCPCS: 36415; 74174; 80053; 81003; 83690; 85025; 99283; Q9967; 81001; 87086

== ENCOUNTER 2019-09-11 16:28 | Emergency (ER) | payer MEDICARE ==
[2019-09-11 17:14] LABS: BILIRUBIN,URINE NEGATIVE (NEGATIVE); GLUCOSE, URINE (UA) NEGATIVE (NEGATIVE); KETONES,URINE (UA) TRACE mg/dL (NEGATIVE); LEUKOCYTE ESTERASE, URINE LARGE (NEGATIVE); NITRITE,URINE POSITIVE (NEGATIVE); OCCULT BLOOD,URINE SMALL (NEGATIVE); PH,URINE 6.5 PH (5.0-7.5); PROTEIN,URINE 100 mg/dL (NEGATIVE); UROBILINOGEN,URINE 0.2 (NORMAL) E.U./dL (NORMAL)
[2019-09-11 17:16] LABS: CLARITY,URINE CLOUDY (CLEAR)
[2019-09-11 17:21] LABS: BACTERIA,URINE Many /HPF (None Seen); SQUAMOUS EPITHELIAL CELL,UR NONE SEEN (<= Few)
[2019-09-11 19:43] LABS: BASOPHILS # (AUTO) 0.1 10^3/uL (0.0-0.1); BASOPHILS % (AUTO) 0.3 %; EOSINOPHILS # (AUTO) 0.1 10^3/uL (0.0-0.7); EOSINOPHILS % (AUTO) 0.3 %; HGB - HEMOGLOBIN 14.9 g/dL (14.0-18.0); LYMPHOCYTES # (AUTO) 2.1 10^3/uL (1.5-3.5); LYMPHOCYTES % (AUTO) 11.4 %; MEAN CORPUSCULAR HEMOGLOBIN 31.2 pg (27.0-31.0); MEAN CORPUSCULAR HGB CONC 33.6 g/dL (32.0-36.0); MEAN CORPUSCULAR VOLUME 93.1 fL (80.0-94.0); MEAN PLATELET VOLUME 9.6 fL (7.4-11.4); MONOCYTES # (AUTO) 1.4 10^3/uL (0.0-1.0); MONOCYTES % (AUTO) 7.5 %; NEUTROPHILS # (AUTO) 14.9 10^3/uL (1.5-6.6); NEUTROPHILS % (AUTO) 79.8 %; PLT - PLATELET COUNT 152 10^3/uL (130-450); RED BLOOD COUNT 4.77 10^6/uL (4.70-6.10); WHITE BLOOD COUNT 18.6 x10^3/uL (4.8-10.8)
[2019-09-11 19:58] LABS: ALBUMIN 4.6 g/dL (3.2-5.5); ALBUMIN/GLOBULIN RATIO 1.3 (1.0-2.2); BILIRUBIN,TOTAL 2.2 mg/dL (0.2-1.0); CALCIUM 9.4 mg/dL (8.5-10.3); CREATININE 1.3 mg/dL (0.6-1.2); TOTAL PROTEIN 8.1 g/dL (6.7-8.2)
[2019-09-11] MEDS ORDERED: cefTRIAXone 1 GM in SODIUM CHLORIDE 0.9% MINIBAG 100 ML IV STA (20:02)
[2019-09-11] MEDS ORDERED: SODIUM CHLORIDE 0.9% 1,000 ML IV ONE (20:02)
--- NOTE | 2019-09-11 20:04 | ED Physician Documentation ---
History of Present Illness - Stated complaint Stated Complaint: DIZZY/WEAKNESS - Chief complaint Chief Complaint: General - History obtained from History obtained from: Patient, Family - History of Present Illness Timing: Today - Additonal information Additional information: 84-year-old male was in his usual state of health until this morning when he awoke with fatigue and dizziness and lightheadedness. He states that he spent most of the day in bed he is coming to the emergency department today for evaluation. Does not feel well he has had some urinary symptoms he has had some urinary urgency frequency and dysuria. He has not had nausea or vomiting or diarrhea. Review of Systems Constitutional: reports: Fatigue. denies: Fever, Chills Eyes: denies: Photophobia Ears: denies: Ear pain Nose: denies: Congestion Throat: denies: Sore throat Cardiac: denies: Chest pain / pressure, Palpitations Respiratory: denies: Dyspnea, Cough GI: denies: Abdominal Pain, Nausea, Vomiting : reports: Dysuria, Frequency Skin: denies: Rash Musculoskeletal: denies: Neck pain, Back pain, Extremity pain Neurologic: reports: Generalized weakness. denies: Focal weakness, Numbness PD PAST MEDICAL HISTORY - Past Medical History Past Medical History: Yes Cardiovascular: Hypertension, Atrial fibrillation Respiratory: None Endocrine/Autoimmune: HyPOthyroidism GI: GERD : Benign prostate hypertrophy, Other HEENT: None Psych: None Musculoskeletal: Osteoarthritis Derm: None - Past Surgical History Past Surgical History: Yes Cardiovascular: CABG, Coronary stent, AAA - Present Medications Home Medications: Ambulatory Orders Medication Instructions Recorded Confirmed Aspirin [Children's Aspirin] 81 mg PO DAILY 08/27/13 10/06/17 Clopidogrel [Plavix] 75 mg PO DAILY 08/27/13 10/06/17 Famotidine [Pepcid] 20 mg PO BID 08/27/13 10/06/17 Metoprolol Succinate [Toprol Xl] 50 mg PO DAILY 08/27/13 10/06/17 Atorvastatin Calcium [Lipitor] 80 mg PO QPM 06/28/14 10/06/17 Multivitamin [Multivitamins] 1 tab PO DAILY 06/28/14 10/06/17 Niacin [Slo-Niacin] 1,000 mg PO DAILY 06/28/14 10/06/17 Levothyroxine [Synthroid] 112 mcg PO DAILY 03/04/15 10/06/17 Lisinopril 20 mg PO DAILY #30 tablet 03/04/15 10/06/17 Fluticasone [Flonase] 2 sprays ZANE DAILY 10/06/17 10/06/17 Ubidecarenone [Coenzyme Q-10] 200 mg PO DAILY MDD 300mg 10/06/17 10/06/17 Levofloxacin [Levaquin] 500 mg PO DAILY #7 tablet 09/11/19 - Allergies Allergies/Adverse Reactions: Allergies Allergy/AdvReac Type Severity Reaction Status Date / Time Sulfa (Sulfonamide Allergy Hives Verified 09/11/19 16:51 Antibiotics) - Social History Does the pt smoke?: No Smoking Status: Never smoker Does the pt drink ETOH?: Yes Does the pt have substance abuse?: No - Immunizations Immunizations are current?: Yes - POLST Patient has POLST: No POLST Status: DNR PD ED PE NORMAL - Vitals Vital signs reviewed: Yes (hypertensive) - General General: Alert and oriented X 3, No acute distress, Well developed/nourished, Other (flush appearing) - HEENT HEENT: Atraumatic, PERRL, EOMI - Neck Neck: Supple, no meningeal sign, No bony TTP - Cardiac Cardiac: RRR, No murmur - Respiratory Respiratory: No respiratory distress, Clear bilaterally - Abdomen Abdomen: Normal bowel sounds, Soft, Non tender, Non distended, No organomegaly - Back Back: No CVA TTP, No spinal TTP - Derm Derm: Normal color, Warm and dry, No rash - Extremities Extremities: No deformity, No edema - Neuro Neuro: Alert and oriented X 3, executive administrative asst 2-12 intact, No motor deficit, No sensory deficit, Normal speech Eye Opening: Spontaneous Motor: Obeys Commands Verbal: Oriented GCS Score: 15 - Psych Psych: Normal mood, Normal affect Results - Vitals Vitals: Vital Signs - 24 hr 09/11/19 09/11/19 16:46 20:12 Temperature 36.9 C Heart Rate 67 60 Respiratory 17 15 Rate Blood Pressure 113/91 H 120/74 O2 Saturation 97 96 Oxygen O2 Source Room air - Labs Labs: Laboratory Tests 09/11/19 09/11/19 09/11/19 17:00 19:38 19:38 WBC 18.6 H RBC 4.77 Hgb 14.9 Hct 44.4 MCV 93.1 MCH 31.2 H MCHC 33.6 RDW 14.0 Plt Count 152 MPV 9.6 Neut # (Auto) 14.9 H Lymph # (Auto) 2.1 Reagan # (Auto) 1.4 H Eos # (Auto) 0.1 Baso # (Auto) 0.1 Absolute Nucleated RBC 0.00 Nucleated RBC % 0.0 Sodium 136 Potassium 4.6 Chloride 102 Carbon Dioxide 25 Anion Gap 9.0 BUN 18 Creatinine 1.3 H Estimated GFR (MDRD) 53 L Glucose 116 H Lactic Acid Calcium 9.4 Total Bilirubin 2.2 H AST 30 ALT 30 Alkaline Phosphatase 57 Total Protein 8.1 Albumin 4.6 Globulin 3.5 Albumin/Globulin Ratio 1.3 Lipase 26 Urine Color YELLOW Urine Clarity CLOUDY Urine pH 6.5 Ur Specific [place] 1.020 Urine Protein 100 H Urine Glucose (UA) NEGATIVE Urine Ketones TRACE Urine Occult Blood SMALL H Urine Nitrite POSITIVE H Urine Bilirubin NEGATIVE Urine Urobilinogen 0.2 (NORMAL) Ur Leukocyte Esterase LARGE H Urine RBC 11-25 H Urine WBC >25 H Ur Squamous Epith Cells NONE SEEN Urine Bacteria Many H Ur Microscopic Review INDICATED Urine Culture Comments INDICATED 09/11/19 19:38 WBC RBC Hgb Hct MCV MCH MCHC RDW Plt Count MPV Neut # (Auto) Lymph # (Auto) Reagan # (Auto) Eos # (Auto) Baso # (Auto) Absolute Nucleated RBC Nucleated RBC % Sodium Potassium Chloride Carbon Dioxide Anion Gap BUN Creatinine Estimated GFR (MDRD) Glucose Lactic Acid 0.7 Calcium Total Bilirubin AST ALT Alkaline Phosphatase Total Protein Albumin Globulin Albumin/Globulin Ratio Lipase Urine Color Urine Clarity Urine pH Ur Specific [place] Urine Protein Urine Glucose (UA) Urine Ketones Urine Occult Blood Urine Nitrite Urine Bilirubin Urine Urobilinogen Ur Leukocyte Esterase Urine RBC Urine WBC Ur Squamous Epith Cells Urine Bacteria Ur Microscopic Review Urine Culture Comments Procedures - IVC sono (time) 194 Bedside IVC sono: IVC measures (cm) (0.93), Dehydration (est 1-2 liter deficit) PD MEDICAL DECISION MAKING - ED course Complexity details: reviewed old records, reviewed results, re-evaluated patient, considered differential, d/w patient, d/w family ED course: 84-year-old male with history of coronary artery disease who is status post stent placement and CABG was not feeling well when he awoke this morning he has some urinary symptoms on evaluation of his urine in the laboratory does appear to have urinary tract infection. On interrogation of the inferior vena cava he appeared to be dry and IV saline and Rocephin are administered. The patient is not febrile his lactate is normal and he feels fatigued consistent with the infection he has. He does not have flank pain or vomiting. I believe he will do well as an outpatient with treatment. Departure - Departure Disposition: Home, Self Care Clinical Impression: Urinary tract infection Qualifiers: Urinary tract infection type: acute cystitis Hematuria presence: with hematuria Qualified Code(s): N30.01 - Acute cystitis with hematuria Condition: Stable Instructions: ED UTI Cystitis Male Follow-Up: Guy Goodson MD [Primary Care Provider] - Prescriptions: Levofloxacin [Levaquin] 500 mg PO DAILY #7 tablet
[2019-09-11 21:11] VITALS: BP 118/73
== END 2019-09-11 21:50 | disposition home or self-care (01) ==
LOC: ED 16:28
DX: N30.01 Acute cystitis with hematuria (principal); E86.0 Dehydration; I10 Essential (primary) hypertension
CPT/HCPCS: 36415; 80053; 81001; 81003; 83605; 83690; 85025; 87086; 87181; 93005; 96365; 99283

== ENCOUNTER 2020-05-21 05:37 | Outpatient (CLI) | payer MEDICARE | END 2020-05-21 05:38 | disposition critical access hospital (66) | LOC: EMS 05:37 | PROVIDERS: ATTEND Surgery | DX: R51.9 Headache, unspecified (principal); R11.2 Nausea with vomiting, unspecified | CPT/HCPCS: A0425; A0427 ==

== ENCOUNTER 2020-05-21 05:47 | Observation (INO) | payer MEDICARE ==
--- NOTE | 2020-05-21 06:08 | ED Physician Documentation ---
PD HPI FOCAL NEURO - Stated complaint Stated Complaint: PATTERSON - History obtained from History obtained from: Patient, Family (spouse) - History of Present Illness Timing - onset: Enter time (16:00), Yesterday Timing - details: Gradual onset Time of symptom onset unknown: Time of onset unknown (PATTERSON onset 16:00 but unclear time of onset of AMS (see narrative, below)) Severity of deficit: Mild Associated symptoms: Headache. No: Fall, Head injury Contributing factors: positive: Anticoagulated (clopidogrel) Baseline status: positive: A&OX3, ambulatory, indep Similar symptoms before: Other (has been evaluted in this ED previously for PATTERSON as well as expressive aphasia) Recently seen: Not recently seen - Additional information Additional information: BIBA. Patient c/o generalized PATTERSON since approximately 4 PM yesterday. says she went to sleep but he woke her up at approximately 3 AM this morning to tell her he was still having a PATTERSON, now worse. She says he elected to try to go back to sleep and that he was able to do so, but he again woke her up at approximately 4 AM saying his headache was still worse and thus she called 911. EMS noted patient was having some difficulty answering some questions but quick to answer others. Patient's says this is not normal for him but she also says she does not know time of onset and cannot say if he had this when he woke her up earlier or even if he had this yesterday. Review of Systems Constitutional: denies: Fever, Chills, Sweats Eyes: denies: Loss of vision, Decreased vision, Photophobia Cardiac: reports: Reviewed and negative Respiratory: reports: Reviewed and negative GI: reports: Reviewed and negative : denies: Dysuria, Frequency Neurologic: reports: Headache. denies: Generalized weakness, Focal weakness, Numbness, Head injury PD PAST MEDICAL HISTORY - Past Medical History Cardiovascular: Hypertension, Atrial fibrillation Respiratory: None Endocrine/Autoimmune: HyPOthyroidism GI: GERD : Benign prostate hypertrophy, Other HEENT: None Psych: None Musculoskeletal: Osteoarthritis Derm: None - Past Surgical History Past Surgical History: Yes Cardiovascular: CABG, Coronary stent, AAA - Present Medications Home Medications: Ambulatory Orders Medication Instructions Recorded Confirmed Aspirin [Children's Aspirin] 81 mg PO DAILY 08/27/13 05/21/20 Clopidogrel [Plavix] 75 mg PO DAILY 08/27/13 05/21/20 Famotidine [Pepcid] 20 mg PO BID 08/27/13 05/21/20 Metoprolol Succinate [Toprol Xl] 50 mg PO DAILY 08/27/13 05/21/20 Atorvastatin Calcium [Lipitor] 80 mg PO QPM 06/28/14 05/21/20 Multivitamin [Multivitamins] 1 tab PO DAILY 06/28/14 05/21/20 Niacin [Slo-Niacin] 1,000 mg PO DAILY 06/28/14 05/21/20 Levothyroxine [Synthroid] 112 mcg PO DAILY 03/04/15 05/21/20 Ubidecarenone [Coenzyme Q-10] 200 mg PO DAILY MDD 300mg 10/06/17 05/21/20 Lisinopril 40 mg PO DAILY 05/21/20 05/21/20 - Allergies Allergies/Adverse Reactions: Allergies Allergy/AdvReac Type Severity Reaction Status Date / Time Sulfa (Sulfonamide Allergy Hives Verified 05/21/20 06:47 Antibiotics) - Social History Does the pt smoke?: No Smoking Status: Never smoker Does the pt drink ETOH?: Yes Does the pt have substance abuse?: No - Immunizations Immunizations are current?: Yes - POLST Patient has POLST: No POLST Status: DNR PD ED PE NORMAL - Vitals Vital signs reviewed: Yes - General General: No acute distress, Well developed/nourished, Other (awake, alert, oriented x 2 (to self and place, but identifies month as August. Also gives his birthday/date when asked his age). ) - HEENT HEENT: Atraumatic, PERRL, EOMI, Moist mucous membranes - Neck Neck: Supple, no meningeal sign - Cardiac Cardiac: RRR, No murmur - Respiratory Respiratory: No respiratory distress, Clear bilaterally - Abdomen Abdomen: Soft, Non tender - Derm Derm: Normal color, Warm and dry, No rash - Extremities Extremities: No edema - Neuro Neuro: locomotive boilermaker 2-12 intact, No motor deficit (no limb drift in BUE, BLE (tested individually)), No sensory deficit NIHSS - Level of Consciousness Level of consciousness: (0) Alert, Keenly responsive LOC Questions: (2) Answers neither correct LOC Commands: (0) Performs both correctly - Gaze Best Gaze: (0) Normal - Visual Visual: (0) No loss - Facial Palsy Facial Palsy: (0) Normal, symmetrical movement - Motor Arms (both separate) Motor Arm (right): (0) No drift Motor Arm (left): (0) No drift - Motor Legs (both separate) Motor Leg (right): (0) No drift Motor Leg (left): (0) No drift - Limb Ataxia Limb Ataxia: (0) Absent - Sensory Sensory: (0) Normal - Best Language Best Language: (0) No aphasia - Dysarthria Dysarthria: (0) Normal - Extinction and Inattention (formally neg Extinction and inattention: (0) No abnormality - Total Score/Results Total Score/Result: 2 Results - Vitals Vitals: Vital Signs - 24 hr 05/21/20 05/21/20 05/21/20 05:47 06:31 06:59 Temperature 36.2 C L 36.5 C Heart Rate 57 L 60 82 Respiratory 15 12 19 Rate Blood Pressure 177/90 H 153/98 H 164/91 H O2 Saturation 100 100 94 05/21/20 05/21/20 05/21/20 07:30 08:00 08:30 Temperature Heart Rate 55 L 55 L 56 L Respiratory 14 14 15 Rate Blood Pressure 181/99 H 176/90 H 172/91 H O2 Saturation 98 98 98 05/21/20 09:07 Temperature Heart Rate 58 L Respiratory 16 Rate Blood Pressure 172/95 H O2 Saturation 96 Oxygen O2 Source Room air - EKG (time done) No standard instances Rate: Rate (enter#) (59) Rhythm: NSR [place]: LAD Intervals: Normal NC QRS: Normal Ischemia: Normal ST segments - Labs Labs: Laboratory Tests 05/21/20 05/21/20 05/21/20 06:10 06:10 06:10 WBC 8.2 RBC 4.70 Hgb 14.9 Hct 44.9 MCV 95.5 H MCH 31.7 H MCHC 33.2 RDW 13.1 Plt Count 171 MPV 9.3 Neut # (Auto) 6.0 Lymph # (Auto) 1.3 L [place] # (Auto) 0.7 Eos # (Auto) 0.1 Baso # (Auto) 0.0 Absolute Nucleated RBC 0.00 Nucleated RBC % 0.0 PT 11.4 INR 1.0 APTT 25.4 Sodium 140 Potassium 3.7 Chloride 104 Carbon Dioxide 26 Anion Gap 10.0 BUN 18 Creatinine 1.1 Estimated GFR (MDRD) 64 L Glucose 137 H Calcium 9.0 Total Bilirubin 0.8 AST 23 ALT 24 Alkaline Phosphatase 37 L Total Protein 7.2 Albumin 4.2 Globulin 3.0 Albumin/Globulin Ratio 1.4 Lipase 28 Urine Color Urine Clarity Urine pH Ur Specific [place] Urine Protein Urine Glucose (UA) Urine Ketones Urine Occult Blood Urine Nitrite Urine Bilirubin Urine Urobilinogen Ur Leukocyte Esterase Ur Microscopic Review Urine Culture Comments 05/21/20 07:25 WBC RBC Hgb Hct MCV MCH MCHC RDW Plt Count MPV Neut # (Auto) Lymph # (Auto) Isabella # (Auto) Eos # (Auto) Baso # (Auto) Absolute Nucleated RBC Nucleated RBC % PT INR APTT Sodium Potassium Chloride Carbon Dioxide Anion Gap BUN Creatinine Estimated GFR (MDRD) Glucose Calcium Total Bilirubin AST ALT Alkaline Phosphatase Total Protein Albumin Globulin Albumin/Globulin Ratio Lipase Urine Color YELLOW Urine Clarity CLEAR Urine pH 7.5 Ur Specific [place] 1.015 Urine Protein NEGATIVE Urine Glucose (UA) NEGATIVE Urine Ketones NEGATIVE Urine Occult Blood NEGATIVE Urine Nitrite NEGATIVE Urine Bilirubin NEGATIVE Urine Urobilinogen 0.2 (NORMAL) Ur Leukocyte Esterase NEGATIVE Ur Microscopic Review NOT INDICATED Urine Culture Comments NOT INDICATED - Rads (name of study) CTA head Radiology: Prelim report reviewed, See rad report CTA neck Radiology: Prelim report reviewed, See rad report CXR Radiology: Prelim report reviewed, See rad report PD MEDICAL DECISION MAKING - ED course Complexity details: reviewed old records, reviewed results, re-evaluated patient, considered differential, d/w patient, d/w family ED course: I discussed patient's case with Dr. Aguila (telestroke neurology); given PATTERSON onset of 4 PM and unclear last known normal/time of onset of his difficulty with communication, Dr. Aguila recommends against giving tPA. He recommends CTA head/neck, and he will review the images and call back if there is any evidence of thrombus for consideration of transfer for thrombectomy. Dr. Aguila says he does not see utility in him performing NIHSS via the telestroke console, as this would not add/change his recommended approach at this time. CTA head does not show apparent acute abnormality including no evidence of thrombosis. Care of patient turned over to Dr. Gomez at end of my shift pending results of the remainder of his tests and disposition.
[2020-05-21] MEDS ORDERED: IOVERSOL 320 100 ML VIAL IVP ONE ×2 (06:11→06:48)
[2020-05-21 06:22] LABS: BASOPHILS % (AUTO) 0.2 %; EOSINOPHILS # (AUTO) 0.1 10^3/uL (0.0-0.7); HGB - HEMOGLOBIN 14.9 g/dL (14.0-18.0); LYMPHOCYTES # (AUTO) 1.3 10^3/uL (1.5-3.5); LYMPHOCYTES % (AUTO) 16.3 %; MEAN CORPUSCULAR HEMOGLOBIN 31.7 pg (27.0-31.0); MEAN CORPUSCULAR HGB CONC 33.2 g/dL (32.0-36.0); MEAN CORPUSCULAR VOLUME 95.5 fL (80.0-94.0); MEAN PLATELET VOLUME 9.3 fL (7.4-11.4); MONOCYTES # (AUTO) 0.7 10^3/uL (0.0-1.0); MONOCYTES % (AUTO) 8.3 %; NEUTROPHILS % (AUTO) 73.7 %; PLT - PLATELET COUNT 171 10^3/uL (130-450); RED CELL DISTRIBUTION WIDTH 13.1 % (12.0-15.0); WHITE BLOOD COUNT 8.2 x10^3/uL (4.8-10.8)
[2020-05-21 06:28] LABS: PT - PROTHROMBIN TIME 11.4 secs (9.9-12.6)
[2020-05-21 06:35] LABS: ALBUMIN 4.2 g/dL (3.2-5.5); ALBUMIN/GLOBULIN RATIO 1.4 (1.0-2.2); BILIRUBIN,TOTAL 0.8 mg/dL (0.2-1.0); CREATININE 1.1 mg/dL (0.6-1.2); PARTIAL THROMBOPLASTIN TIME 25.4 secs (24.9-33.3); TOTAL PROTEIN 7.2 g/dL (6.7-8.2)
[2020-05-21] MEDS ORDERED: KETOROLAC 30 MG/ML VIAL IVP STA (07:29)
[2020-05-21 07:57] LABS: BILIRUBIN,URINE NEGATIVE (NEGATIVE); GLUCOSE, URINE (UA) NEGATIVE (NEGATIVE); KETONES,URINE (UA) NEGATIVE (NEGATIVE); LEUKOCYTE ESTERASE, URINE NEGATIVE (NEGATIVE); NITRITE,URINE NEGATIVE (NEGATIVE); OCCULT BLOOD,URINE NEGATIVE (NEGATIVE); PH,URINE 7.5 PH (5.0-7.5); PROTEIN,URINE NEGATIVE (NEGATIVE); UROBILINOGEN,URINE 0.2 (NORMAL) E.U./dL (NORMAL)
[2020-05-21 08:01] LABS: CLARITY,URINE CLEAR (CLEAR)
[2020-05-21] MEDS ORDERED: BUTALB/ACETAM/CAFF 50/325/40MG TABLET PO STA (08:30)
--- NOTE | 2020-05-21 08:55 | CT Report ---
PROCEDURE: ANGIO HEAD W/WO INDICATIONS: AMS CONTRAST: IV CONTRAST: Optiray 320 ml: 80 PO CONTRAST: *NO PO CONTRAST TECHNIQUE: Precontrast 4.5 mm thick angled axial sections acquired from the foramen magnum to the vertex. Afte r the administration of intravenous contrast, 1 mm thick sections acquired through the [place] of [place] is. Postcontrast 4.5 mm thick sections then re-acquired from the foramen magnum to the vertex. 3-di mensional [id number] (MIP) and/or volume rendering reformats were acquired of the c entral intracranial vasculature. For radiation dose reduction, the following was used: automated ex posure control, adjustment of mA and/or kV according to patient size. COMPARISON: CT head 08/28/2018 and 04/26/2018 FINDINGS: Image quality: Excellent. Anterior circulation: Intracranial internal carotid arteries are normal in flow. Atherosclerotic adrienne cifications noted in the cavernous and clinoid segments of the internal carotid arteries bilaterally which cause mild narrowing of the vessels. The flow within the paired anterior cerebral arteries is n ormal and symmetric. The flow within the middle cerebral arteries is normal and symmetric. The ante rior communicating artery is seen. No aneurysms are seen. Posterior circulation: Visualized portions of the vertebral arteries demonstrate normal caliber, and join to form a normal appearing basilar artery. Flow within the posterior cerebral arteries is norm al and symmetric. No aneurysms are seen. Dural sinuses demonstrate normal postcontrast enhancement. CSF spaces: Ventricles are normal in size and shape. Basal cisterns are patent. No extra-axial flu id collections. Brain: No midline shift. No intracranial bleeds or masses. There is diffuse tubular volume loss. T here are periventricular and subcortical white matter chronic microvascular ischemic changes. Man-wh ite matter interface appears intact. Skull and face: Calvarium and facial bones appear intact, without suspicious lesions. Sinuses: Visualized sinuses and mastoids are clear. IMPRESSION: 1. No acute intracranial disease process. 2. No large vessel occlusion, hemodynamically significant vascular stenosis, vascular dissection or a neurysm. Reviewed by: Jody Morton MD, PhD on 05/21/2020 8:53 AM PST Approved by: Jody Morton MD, PhD on 05/21/2020 8:53 AM PST Station ID: [id number]
--- NOTE | 2020-05-21 09:00 | CT Report ---
PROCEDURE: ANGIO NECK W INDICATIONS: AMS CONTRAST: IV CONTRAST: Optiray 320 ml: 80 PO CONTRAST: *NO PO CONTRAST TECHNIQUE: After the administration of intravenous contrast, 1.5 mm axial sections acquired from the aortic arch to the [place] of [place]. Coronal 3-D maximum intensity projection (MIP) and/or volume rendering ref ormats were then performed. For radiation dose reduction, the following was used: automated exposur e control, adjustment of mA and/or kV according to patient size. COMPARISON: None. FINDINGS: Image quality: Excellent. Carotid system: The great vessels demonstrate a conventional anatomy as they arise from the aortic a [facility]. The origins of the common carotid arteries appear patent. The common carotid arteries demonstr ate normal calibers and courses. Atherosclerotic calcifications noted in the origins of the internal carotid arteries bilaterally which causes less than 50% stenosis of the vessels. Posterior circulation: The origin of the left vertebral artery is fully patent. After static calcifi cation noted in the origin of the right vertebral artery which causes mild to moderate stenosis. The more superior portions of the vertebral arteries demonstrate normal course and caliber. They join to form a normal appearing basilar artery. Soft tissues: Visualized neck soft tissues demonstrate no suspicious abnormalities. The thyroid gla nd is atrophy. Bones: No suspicious bony lesions. Spine degenerative disc disease and facet arthropathy are noted. Visualized cervical spine appears normally aligned. IMPRESSION: 1. Less than 50% stenosis of the origins of the internal carotid arteries. 2. 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 3. Left vertebral artery is fully patent. The estimate of stenosis included in the report of the imaging study was calculated using the NASCET method Reviewed by: Jody Morton MD, PhD on 05/21/2020 8:59 AM PST Approved by: Jody Morton MD, PhD on 05/21/2020 8:59 AM PST Station ID: [id number]
--- NOTE | 2020-05-21 09:06 | XRAY Report ---
PROCEDURE: Chest 1 View X-Ray INDICATIONS: chest pain TECHNIQUE: One view of the chest was acquired. COMPARISON: 04/26/2018 FINDINGS: Surgical changes and devices: Status post CABG procedure. Lungs and pleura: No pleural effusions or pneumothorax. Lungs are clear. Mediastinum: Mediastinal contours appear normal. Heart size is normal. Bones and chest wall: No suspicious bony lesions. Overlying soft tissues appear unremarkable. IMPRESSION: No acute cardiopulmonary disease process. Reviewed by: Jody Morton MD, PhD on 05/21/2020 9:05 AM [facility] Approved by: Jody Morton MD, PhD on 05/21/2020 9:05 AM [facility] Station ID: [id number]
[2020-05-21] MEDS ORDERED: HALOPERIDOL 5 MG/ML VIAL IVP STA (10:06)
--- NOTE | 2020-05-21 11:30 | ED Physician Documentation ---
PD HPI FOCAL NEURO - Stated complaint Stated Complaint: PATTERSON - Chief complaint Chief Complaint: Neuro PD PAST MEDICAL HISTORY - Past Medical History Past Medical History: Yes Cardiovascular: Hypertension, Atrial fibrillation Respiratory: None Endocrine/Autoimmune: HyPOthyroidism GI: GERD : Benign prostate hypertrophy, Other HEENT: None Psych: None Musculoskeletal: Osteoarthritis Derm: None - Past Surgical History Past Surgical History: Yes Cardiovascular: CABG, Coronary stent, AAA - Present Medications Home Medications: Ambulatory Orders Medication Instructions Recorded Confirmed Aspirin [Children's Aspirin] 81 mg PO DAILY 08/27/13 05/21/20 Clopidogrel [Plavix] 75 mg PO DAILY 08/27/13 05/21/20 Famotidine [Pepcid] 20 mg PO BID 08/27/13 05/21/20 Metoprolol Succinate [Toprol Xl] 50 mg PO DAILY 08/27/13 05/21/20 Atorvastatin Calcium [Lipitor] 80 mg PO QPM 06/28/14 05/21/20 Multivitamin [Multivitamins] 1 tab PO DAILY 06/28/14 05/21/20 Niacin [Slo-Niacin] 1,000 mg PO DAILY 06/28/14 05/21/20 Levothyroxine [Synthroid] 112 mcg PO QDAC 03/04/15 05/21/20 Ubidecarenone [Coenzyme Q-10] 200 mg PO DAILY MDD 300mg 10/06/17 05/21/20 Lisinopril [Zestril] 40 mg PO DAILY 05/21/20 05/21/20 amLODIPine [Norvasc] 5 mg PO DAILY 05/21/20 05/21/20 predniSONE [Deltasone] 15 mg PO QDBREAKFAST 05/21/20 05/21/20 - Allergies Allergies/Adverse Reactions: Allergies Allergy/AdvReac Type Severity Reaction Status Date / Time Sulfa (Sulfonamide Allergy Hives Verified 05/21/20 06:47 Antibiotics) - Social History Does the pt smoke?: No Smoking Status: Never smoker Does the pt drink ETOH?: Yes Does the pt have substance abuse?: No - Immunizations Immunizations are current?: Yes - POLST Patient has POLST: No POLST Status: DNR NIHSS - Time Time: 11:00 - Level of Consciousness Level of consciousness: (1) Not alert, but arousable by minor stimulation to obey, or answer LOC Questions: (1) Answers one Q correctly LOC Commands: (0) Performs both correctly - Gaze Best Gaze: (0) Normal - Visual Visual: (0) No loss - Facial Palsy Facial Palsy: (0) Normal, symmetrical movement - Motor Arms (both separate) Motor Arm (right): (0) No drift Motor Arm (left): (0) No drift - Motor Legs (both separate) Motor Leg (right): (0) No drift Motor Leg (left): (0) No drift - Limb Ataxia Limb Ataxia: (0) Absent - Sensory Sensory: (0) Normal - Best Language Best Language: (1) [id number] - Dysarthria Dysarthria: (0) Normal - Extinction and Inattention (formally neg Extinction and inattention: (0) No abnormality - Total Score/Results Total Score/Result: 3 Results - Vitals Vitals: Vital Signs - 24 hr 05/21/20 05/21/20 05/21/20 05:47 06:31 06:59 Temperature 36.2 C L 36.5 C Heart Rate 57 L 60 82 Respiratory 15 12 19 Rate Blood Pressure 177/90 H 153/98 H 164/91 H O2 Saturation 100 100 94 05/21/20 05/21/20 05/21/20 07:30 08:00 08:30 Temperature Heart Rate 55 L 55 L 56 L Respiratory 14 14 15 Rate Blood Pressure 181/99 H 176/90 H 172/91 H O2 Saturation 98 98 98 05/21/20 05/21/20 05/21/20 09:07 10:00 10:30 Temperature Heart Rate 58 L 60 79 Respiratory 16 15 14 Rate Blood Pressure 172/95 H 164/95 H 164/89 H O2 Saturation 96 99 96 05/21/20 05/21/20 11:00 11:30 Temperature Heart Rate 71 57 L Respiratory 16 15 Rate Blood Pressure 173/111 H 159/88 H O2 Saturation 96 95 Oxygen O2 Source Room air - Labs Labs: Laboratory Tests 05/21/20 05/21/20 05/21/20 06:10 06:10 06:10 WBC 8.2 RBC 4.70 Hgb 14.9 Hct 44.9 MCV 95.5 H MCH 31.7 H MCHC 33.2 RDW 13.1 Plt Count 171 MPV 9.3 Neut # (Auto) 6.0 Lymph # (Auto) 1.3 L [place] # (Auto) 0.7 Eos # (Auto) 0.1 Baso # (Auto) 0.0 Absolute Nucleated RBC 0.00 Nucleated RBC % 0.0 PT 11.4 INR 1.0 APTT 25.4 Sodium 140 Potassium 3.7 Chloride 104 Carbon Dioxide 26 Anion Gap 10.0 BUN 18 Creatinine 1.1 Estimated GFR (MDRD) 64 L Glucose 137 H Calcium 9.0 Total Bilirubin 0.8 AST 23 ALT 24 Alkaline Phosphatase 37 L Total Protein 7.2 Albumin 4.2 Globulin 3.0 Albumin/Globulin Ratio 1.4 Lipase 28 Urine Color Urine Clarity Urine pH Ur Specific [place] Urine Protein Urine Glucose (UA) Urine Ketones Urine Occult Blood Urine Nitrite Urine Bilirubin Urine Urobilinogen Ur Leukocyte Esterase Ur Microscopic Review Urine Culture Comments 05/21/20 07:25 WBC RBC Hgb Hct MCV MCH MCHC RDW Plt Count MPV Neut # (Auto) Lymph # (Auto) [place] # (Auto) Eos # (Auto) Baso # (Auto) Absolute Nucleated RBC Nucleated RBC % PT INR APTT Sodium Potassium Chloride Carbon Dioxide Anion Gap BUN Creatinine Estimated GFR (MDRD) Glucose Calcium Total Bilirubin AST ALT Alkaline Phosphatase Total Protein Albumin Globulin Albumin/Globulin Ratio Lipase Urine Color YELLOW Urine Clarity CLEAR Urine pH 7.5 Ur Specific [place] 1.015 Urine Protein NEGATIVE Urine Glucose (UA) NEGATIVE Urine Ketones NEGATIVE Urine Occult Blood NEGATIVE Urine Nitrite NEGATIVE Urine Bilirubin NEGATIVE Urine Urobilinogen 0.2 (NORMAL) Ur Leukocyte Esterase NEGATIVE Ur Microscopic Review NOT INDICATED Urine Culture Comments NOT INDICATED PD MEDICAL DECISION MAKING - ED course Complexity details: reviewed results, re-evaluated patient, considered differential, d/w patient, d/w family, d/w behavioral health consultant ED course: Patient was signed out to me by Dr. Enrique, awaiting reevaluation after treatment for his headache. His headache did resolve in the emergency department, but he continues to have expressive aphasia and anomic aphasia. Unable to identify pictures that are shown to him, such as a glove, cactus, roper. Concerning for stroke. Last known normal was yesterday. Has had headaches in the past and multiple TIAs in the past, none that have had aphasia. Dr. Enrique consulted neurology who recommended CT angiograms, these do not show any acute abnormalities. Therefore we will admit the patient for stroke work-up. Symptoms have not resolved in the emergency department. He is on Plavix at home. History of A. fib and CABG. This document was made in part using voice recognition software. While efforts are made to proofread this document, sound alike and grammatical errors may occur. Departure - Departure Disposition: 66 [facility] DC/Xfer Clinical Impression: Anomic aphasia Headache Qualifiers: Headache type: unspecified Headache chronicity pattern: unspecified pattern Intractability: not intractable Qualified Code(s): R51.9 - Headache, unspecified Hypertension Qualifiers: Hypertension type: unspecified Qualified Code(s): I10 - Essential (primary) hypertension Condition: Stable
[2020-05-21] MEDS ORDERED: ACETAMINOPHEN 325 MG TABLET PO PRN (12:15)
[2020-05-21] MEDS ORDERED: SODIUM CHLORIDE FLUSH 0.9% 10 ML SYRINGE IVP PRN (12:15)
[2020-05-21] MEDS ORDERED: ONDANSETRON 4 MG/2 ML VIAL IVP PRN (12:15)
[2020-05-21] MEDS ORDERED: BUTALB/ACETAM/CAFF 50/325/40MG TABLET PO PRN (12:20)
--- NOTE | 2020-05-21 12:22 | PHARMACY PROGRESS NOTE ---
- Best Possible Medication History Admit Date and Time: Patient in ED Processed by: Nursing Medication History completed: Yes As the person ultimately responsible for medication therapy, providers are able to order a medication from an existing home medication list in [facility] via the "Reconcile Routine" prior to Confirmation of that medication by production support analyst. Such practice is discouraged except when the physician, in their clinical judgment, deems that a medical need exists for a medication without regard to previous use.
--- NOTE | 2020-05-21 12:28 | HISTORY & PHYSICAL EXAMINATION ---
Chief Complaint - Chief Complaint Chief Complaint: headache and slurred speech History of Present Illness - Admitted From Admitted From:: ER - History Obtained From Records Reviewed: [facility] History obtained from: pt Exam Limitations: tired and fatigue, and easy to fall into sleep - History of Present Illness HPI Comment/Other: Mr. 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 Patient is alert oriented +2. Patient reported he feels fatigued and Wanted to sleep because he reported he has no much sleep on last night. Patient reported in this morning around 3-4 AM when he woke up he feel headache and his found he was worsening slurring speech. Patient reported he had no issue walk to the bathroom. In my examination patient did have slurring speech, but pt also has baseline of some degree of slurred speech as well. there is only a very slight facial droop noted. CTA of head show no acute intracranial disease, no large vessel occlusion. CTA of the neck show less than 50% stenosis of origins of internal carotid artery, mild to moderate stenosis of origin of right vertebral artery, Left vertebral artery is full patent. Chest x-ray is unremarkable. Routine laboratory test was unremarkable, COVID-19 was negative. Patient is afebrile, hemodynamic stable right now. Patient is admitted for for TIA/stroke work-up Discussed the care goal with patient, patient request full code History - Past Medical History Cardiovascular: reports: Hypertension, Atrial fibrillation Respiratory: reports: None Endocrine/Autoimmune: reports: HyPOthyroidism GI: reports: GERD : reports: Benign prostate hypertrophy, Other HEENT: reports: None Psych: reports: None Musculoskeletal: reports: Osteoarthritis Derm: reports: None MRSA Hx?: No - Past Surgical History Cardiovascular: reports: CABG, Coronary stent, AAA - Family & Social History Family History: Mother: , CVA/TIA, Father: , CAD, Hyperlipidemia, Hypertension, [place], Brother: , Cancer, CVA/TIA, Other family: Alive and Well (daughter), Diabetes, Type 1 Family History Comment/Other: Patient is very fatigue and fall into sleep very quickly and could not answer family history question Social History Notes: Patient is very fatigue and fall into sleep very quickly and could not answer social hx question. Patient denies history of smoker, alcohol and drug use - Substance History Use: Uses substance without health or social issues: Alcohol - POLST Patient has POLST: No POLST Status: DNR Meds/Allgy - Home Medications Home Medications: Ambulatory Orders Medication Instructions Recorded Confirmed Aspirin [Children's Aspirin] 81 mg PO DAILY 08/27/13 05/21/20 Clopidogrel [Plavix] 75 mg PO DAILY 08/27/13 05/21/20 Famotidine [Pepcid] 20 mg PO BID 08/27/13 05/21/20 Metoprolol Succinate [Toprol Xl] 50 mg PO DAILY 08/27/13 05/21/20 Atorvastatin Calcium [Lipitor] 80 mg PO QPM 06/28/14 05/21/20 Multivitamin [Multivitamins] 1 tab PO DAILY 06/28/14 05/21/20 Niacin [Slo-Niacin] 1,000 mg PO DAILY 06/28/14 05/21/20 Levothyroxine [Synthroid] 112 mcg PO QDAC 03/04/15 05/21/20 Ubidecarenone [Coenzyme Q-10] 200 mg PO DAILY MDD 300mg 10/06/17 05/21/20 Lisinopril [Zestril] 40 mg PO DAILY 05/21/20 05/21/20 amLODIPine [Norvasc] 5 mg PO DAILY 05/21/20 05/21/20 predniSONE [Deltasone] 15 mg PO QDBREAKFAST 05/21/20 05/21/20 - Allergies Allergies/Adverse Reactions: Allergies Allergy/AdvReac Type Severity Reaction Status Date / Time Sulfa (Sulfonamide Allergy Hives Verified 05/21/20 06:47 Antibiotics) Review of Systems - All Other Systems All Other Systems: reports: Other (Patient fall into sleep very quickly, cannot answer the question of ROS) Exam - Vital Signs Vital Signs: Vital Signs x48h Temp Pulse Resp BP Pulse Ox 05/21/20 11:30 57 L 15 159/88 H 95 05/21/20 11:00 71 16 173/111 H 96 05/21/20 10:30 79 14 164/89 H 96 05/21/20 10:00 60 15 164/95 H 99 05/21/20 09:07 58 L 16 172/95 H 96 05/21/20 08:30 56 L 15 172/91 H 98 05/21/20 08:00 55 L 14 176/90 H 98 05/21/20 07:30 55 L 14 181/99 H 98 05/21/20 06:59 36.5 C 82 19 164/91 H 94 05/21/20 06:31 60 12 153/98 H 100 05/21/20 05:47 36.2 C L 57 L 15 177/90 H 100 - Physical Exam General Appearance: positive: No acute distress, Alert. negative: Lethargic Eyes Bilateral: positive: Normal inspection, PERRL, No lid inflammation ENT: positive: ENT inspection nml, No signs of dehydration. negative: Purulent nasal drainage Neck: positive: Nml inspection, Thyroid nml, Trachea midline. negative: Thyromegaly, Tracheal deviation Respiratory: positive: Chest non-tender, No respiratory distress, Breath sounds nml. negative: Wheezes, Rales, Rhonchi Cardiovascular: positive: Regular rate & rhythm, No murmur, Tachycardia. negative: Bradycardia, Systolic murmur, Diastolic murmur Peripheral Pulses: positive: 2+ Abdomen: positive: Non-tender, Nml bowel sounds, No distention. negative: Tende rness, Guarding, Rebound Back: positive: Nml inspection Skin: positive: Color nml, No rash, Warm, Dry. negative: Cyanosis, Diaphoresis, Pallor Extremities: positive: Non-tender, Nml appearance, Calf tenderness Neurologic/Psychiatric: positive: Sensation nml, Mood/affect nml, Facial droop, Slurred/abnml speech. negative: Weakness, Sensory loss, Depressed mood/affect Conclusion/Plan - Problem List (1) Slurred speech Conclusion/Plan: Patient still has slurring speech but patient has history some degree of slurring speech. Patient had multiple time with a similar symptoms in the before. CTA of head and neck was unremarkable. Patient take baby aspirin, Plavix, statin 80 mg daily in the home already, will resume. We will do TIA/stroke work-up including MRI of the brain and echo.We will have physical therapist and occupational therapist consult. And will allow blood pressure rise. (2) Headache Conclusion/Plan: Patient has a chronic headache hx special after woke up from sleep. CTA of the head was unremarkable, we will have MRI of the brain for patient. Tylenol and bu talb/acetam/caff PRN for headache. (3) HTN (hypertension) Conclusion/Plan: We will allow patient rise blood pressure, resume home metoprolol, add hydralazine as needed (4) Hypothyroidism Conclusion/Plan: Resume home Synthroid, check TSH - Lab Results Fish Bones: 05/21/20 06:10 05/21/20 06:10 Core Measures - Anticipated LOS I expect patient to be DC'd or transferred within 96 hours.: Yes - DVT/VTE - Prophylaxis VTE/DVT Device ordered at admit?: Yes VTE/DVT Prophylaxis med ordered at admit?: Yes
[2020-05-21] MEDS ORDERED: METOPROLOL SUCCINATE 50 MG TABLET PO SCH (13:00)
[2020-05-21 13:40] LABS: C. PNEUMONIAE- RESP PCR PANEL NOT DETECTED
[2020-05-21] MEDS: CLOPIDOGREL 75 MG TABLET PO SCH (14:13)
[2020-05-21] MEDS: ASPIRIN CHEW 81 MG TABLET PO SCH (14:13)
[2020-05-21] MEDS: SODIUM CHLORIDE FLUSH 0.9% 10 ML SYRINGE IVP SCH (16:14)
[2020-05-21] MEDS ORDERED: hydrALAZINE INJ 20 MG/ML VIAL IVP PRN (16:21)
--- NOTE | 2020-05-21 20:04 | MRI Report ---
PROCEDURE: Brain W/O INDICATIONS: Slurred speech TECHNIQUE: Noncontrast axial T1 spin echo, axial T2 fast spin echo, sagittal and axial FLAIR, coronal T2 fast sp in echo, axial gradient echo, axial diffusion and ADC through the brain. COMPARISON: Brain MRI 10/06/2017.. FINDINGS: Image quality: Excellent. CSF Spaces: Basal cisterns are patent. No extra-axial fluid collections. Mild ventriculomegaly stab le compared to prior examination. Brain: No intracranial masses or hemorrhage. There is moderate, diffuse cerebral volume loss. There are moderate periventricular and subcortical white matter chronic microvascular ischemic changes. Gr ay/white matter interface is normal. Brainstem appears normal. Diffusion-weighted images demonstrat e no acute ischemic insult. No chronic ischemic insults. Normal intravascular flow voids are presen t. Skull and face: Calvarium has normal marrow signal. Orbits appear normal. Sinuses: Sinuses are clear. Small fluid noted in the mastoid air cells bilaterally right greater kay n left. IMPRESSION: 1. No acute intracranial disease process. 2. No areas of acute infarction. No intracranial hemorrhage. 3. No abnormal intracranial mass or mass effect. 4. Moderate, diffuse cerebral volume loss. 5. Moderate periventricular and subcortical white matter chronic microvascular ischemic change. 6. Mild ventriculomegaly stable compared to prior examination. Finding the secondary to central line loss versus normal pressure hydrocephalus. Please correlate with clinical data. 7. Small amount of fluid in the mastoid air cells bilaterally. Right PICC line correlation with physi adrienne findings to differentiate serous fluid from inflammatory process. Reviewed by: Jody Morton MD, PhD on 05/21/2020 8:02 PM PST Approved by: Jody Morton MD, PhD on 05/21/2020 8:02 PM PST Station ID: [id number]
[2020-05-21] MEDS: ATORVASTATIN 40 MG TABLET PO SCH (20:16)
[2020-05-21] MEDS: FAMOTIDINE 20 MG TABLET PO SCH (20:16)
[2020-05-22] MEDS: SODIUM CHLORIDE FLUSH 0.9% 10 ML SYRINGE IVP SCH ×4 (00:56→22:53)
[2020-05-22 05:47] LABS: BASOPHILS % (AUTO) 0.2 %; EOSINOPHILS % (AUTO) 0.2 %; HGB - HEMOGLOBIN 15.1 g/dL (14.0-18.0); LYMPHOCYTES % (AUTO) 22.5 %; MEAN CORPUSCULAR HEMOGLOBIN 31.1 pg (27.0-31.0); MEAN PLATELET VOLUME 9.5 fL (7.4-11.4); MONOCYTES # (AUTO) 0.8 10^3/uL (0.0-1.0); MONOCYTES % (AUTO) 9.3 %; NEUTROPHILS % (AUTO) 67.5 %; PLT - PLATELET COUNT 185 10^3/uL (130-450); RED BLOOD COUNT 4.86 10^6/uL (4.70-6.10); WHITE BLOOD COUNT 8.9 x10^3/uL (4.8-10.8)
[2020-05-22 05:59] LABS: CALCIUM 8.7 mg/dL (8.5-10.3); MAGNESIUM 2.3 mg/dL (1.7-2.8)
[2020-05-22 06:05] LABS: CHOL/HDL RATIO 5.4 (<5.0); CHOLESTEROL 245 mg/dL; HDL CHOLESTEROL 45 mg/dL; LDL CHOLESTEROL,CALCULATED 175 mg/dL; LDL/HDL RATIO 3.9 (<3.6); VLDL CHOLESTEROL 25 mg/dL
[2020-05-22] MEDS: LEVOTHYROXINE 112 MCG TABLET PO SCH (06:48)
[2020-05-22] MEDS: ENOXAPARIN 40 MG/0.4 ML SYRINGE SUBQ SCH (09:23)
[2020-05-22] MEDS: METOPROLOL SUCCINATE 25 MG TABLET PO SCH (09:28)
[2020-05-22] MEDS: lisinopriL 20 MG TABLET PO SCH (09:29)
[2020-05-22] MEDS: FAMOTIDINE 20 MG TABLET PO SCH ×2 (09:31→20:57)
[2020-05-22] MEDS: ASPIRIN CHEW 81 MG TABLET PO SCH (09:32)
[2020-05-22] MEDS: NIACIN ER 500 MG TABLET PO SCH (11:56)
[2020-05-22] MEDS: amLODIPine 5 MG TABLET PO SCH (11:57)
[2020-05-22] MEDS: CLOPIDOGREL 75 MG TABLET PO SCH (11:57)
--- NOTE | 2020-05-22 18:00 | PROVIDER PROGRESS NOTE ---
Assessment/Plan - Problem List (1) Slurred speech Assessment/Plan: 05/22 MRI of brain show no stroke, no acute intracranial disease, no acute infarction, or intracranial hemorrhage. CTA of head and neck was unremarkable for acute significant finding. pt is alert and oriented, pt can talk and answer question logically. Patient's slurring speech is improved as his baseline, mild slurred speech. continue neur check, Baby aspirin, Plavix, statin. Patient still has slurring speech but patient has history some degree of slurring speech. Patient had multiple time with a similar symptoms in the before. CTA of head and neck was unremarkable. Patient take baby aspirin, Plavix, statin 80 mg daily in the home already, will resume. We will do TIA/stroke work-up including MRI of the brain and echo.We will have physical therapist and occupational therapist consult. And will allow blood pressure rise. (2) Headache Conclusion/Plan: 05/22, Patient report his headache is better, improved. pt report he sleep lots in the home Patient has a chronic headache hx special after woke up from sleep. CTA of the head was unremarkable, we will have MRI of the brain for patient. Tylenol and butalb/acetam/caff PRN for headache. (3)normal pressure hydrocephalus I called Jigna Oh, neurologist, she could not see the whole picture of MRI but see partial CTA of head because our computer could not send whole image. Our computer system was shut down at this afternoon. she see ventriculomegaly but she believe this is chronic process, advise pt does not need to be transferred now, followup with hydrocephalus center as out-pt. (4) HTN (hypertension) Conclusion/Plan: stable, resume pt's home meds now. (5) Hypothyroidism Conclusion/Plan: TSH is normal, continue home Synthroid - Current Meds Current Meds: Current Medications Generic Name Dose Route Start Last Admin Trade Name Freq PRN Reason Stop Dose Admin Acetaminophen/Butalbital/Caffeine 1 tab 05/21/20 12:20 05/21/20 19:39 Fioricet PO 1 tab Q4HR PRN Administration HEADACHE Amlodipine Besylate 5 mg 05/22/20 09:00 05/22/20 11:57 Norvasc PO 5 mg DAILY ADAM Administration Aspirin 81 mg 05/21/20 13:00 05/22/20 09:32 [facility] Aspirin PO 81 mg DAILY ADAM Administration Atorvastatin Calcium 80 mg 05/21/20 21:00 05/21/20 20:16 Lipitor PO 80 mg QPM ADAM Administration Clopidogrel Bisulfate 75 mg 05/21/20 13:00 05/22/20 11:57 Plavix PO 75 mg DAILY ADAM Administration Enoxaparin Sodium 40 mg 05/22/20 09:00 05/22/20 09:23 Lovenox SUBQ 40 mg DAILY ADAM Administration Famotidine 20 mg 05/21/20 21:00 05/22/20 09:31 Pepcid PO 20 mg BID ADAM Administration Levothyroxine Sodium 112 mcg 05/22/20 07:00 05/22/20 06:48 Synthroid PO 112 mcg QDAC ADAM Administration Lisinopril 40 mg 05/22/20 09:00 05/22/20 09:29 Zestril PO 40 mg DAILY ADAM Administration Metoprolol Succinate 37.5 mg 05/22/20 09:00 05/22/20 09:28 Toprol Xl PO 37.5 mg DAILY ADAM Administration Niacin 1,000 mg 05/22/20 09:00 05/22/20 11:56 Niaspan PO 1,000 mg DAILY ADAM Administration Sodium Chloride 10 ml 05/21/20 17:00 05/22/20 12:04 Normal Saline Flush 0.9% IVP 10 ml 0100,0900,1700 [facility] Administration - Lab Result Fish Bone Diagrams: 05/22/20 05:14 05/22/20 05:14 - Additional Planning My Orders: My Active Orders 05/21/20 17:00 Sodium Chloride Flush 0.9% [Normal Saline Flush 0.9%] 10 ml IVP 0100,0900,1700 05/21/20 21:00 Atorvastatin [Lipitor] 80 mg PO QPM Famotidine [Pepcid] 20 mg PO BID 05/22/20 07:00 Levothyroxine [Synthroid] 112 mcg PO QDAC 05/22/20 09:00 Enoxaparin [Lovenox] 40 mg SUBQ DAILY Metoprolol Succinate [Toprol Xl] 37.5 mg PO DAILY Niacin [Niaspan] 1,000 mg PO DAILY amLODIPine [Norvasc] 5 mg PO DAILY lisinopriL [Zestril] 40 mg PO DAILY 05/22/20 Lunch Soft (Low Fiber) Diet [DIET] 05/22/20 17:30 Neuro Check [RC] QSHIFT 05/23/20 05:00 BMP - BASIC METABOLIC PANEL [CHEM] DAILYLAB CBC - COMP BLD CT W/AUTO DIFF [HEME] DAILYLAB 05/24/20 05:00 BMP - BASIC METABOLIC PANEL [CHEM] DAILYLAB CBC - COMP BLD CT W/AUTO DIFF [HEME] DAILYLAB 05/25/20 05:00 BMP - BASIC METABOLIC PANEL [CHEM] DAILYLAB CBC - COMP BLD CT W/AUTO DIFF [HEME] DAILYLAB 05/26/20 05:00 BMP - BASIC METABOLIC PANEL [CHEM] DAILYLAB Subjective - Subjective Patient Reports: Feeling Better Objective Vital Signs: Vital Signs - 24 hr 05/21/20 05/22/20 05/22/20 20:05 00:00 04:45 Temperature 36.5 C 37 C 36.7 C Heart Rate [ Activity] Heart Rate [ 61 61 66 Brachial] Heart Rate [ Supine] Respiratory 16 18 18 Rate Blood Pressure [Activity] Blood Pressure 163/75 H 149/81 H 166/91 H [Right Brachial artery] Blood Pressure [Supine] O2 Saturation 97 96 96 05/22/20 05/22/20 05/22/20 07:43 10:40 12:58 Temperature 36.8 C Heart Rate [ 58 L 58 L Activity] Heart Rate [ 59 L Brachial] Heart Rate [ 61 61 Supine] Respiratory 18 Rate Blood Pressure 184/108 H 184/108 H [Activity] Blood Pressure 149/81 H [Right Brachial artery] Blood Pressure 171/89 H 171/89 H [Supine] O2 Saturation 95 05/22/20 13:25 Temperature 36.2 C L Heart Rate [ Activity] Heart Rate [ 56 L Brachial] Heart Rate [ Supine] Respiratory 16 Rate Blood Pressure [Activity] Blood Pressure 152/80 H [Right Brachial artery] Blood Pressure [Supine] O2 Saturation 97 Oxygen O2 Source Room air I&O (Last 24 Hrs): Intake and Output Totals x24h 05/20/20 05/21/20 05/22/20 23:59 23:59 23:59 Intake Total 400 120 Output Total 200 Balance 400 -80 General: Alert, No acute distress HEENT: Atraumatic, PERRLA Neck: Supple Lymphatic: no adenopathy Neuro: Alert, Non Focal, Speech Slurred (mild slurred speech) Cardiovascular: Regular rate, Normal S1 Respiratory: Chest non-tender, No respiratory distress Abdomen: Normal bowel sounds, Soft, No tenderness Extremities: Normal pulses - Results Results: Laboratory Results WBC 8.9 x10^3/uL (4.8-10.8) 05/22/20 05:14 RBC 4.86 10^6/uL (4.70-6.10) 05/22/20 05:14 Hgb 15.1 g/dL (14.0-18.0) 05/22/20 05:14 Hct 45.7 % (42.0-52.0) 05/22/20 05:14 MCV 94.0 fL (80.0-94.0) 05/22/20 05:14 MCH 31.1 pg (27.0-31.0) H 05/22/20 05:14 MCHC 33.0 g/dL (32.0-36.0) 05/22/20 05:14 RDW 13.0 % (12.0-15.0) 05/22/20 05:14 Plt Count 185 10^3/uL (130-450) 05/22/20 05:14 MPV 9.5 fL (7.4-11.4) 05/22/20 05:14 Neut # (Auto) 6.0 10^3/uL (1.5-6.6) 05/22/20 05:14 Lymph # (Auto) 2.0 10^3/uL (1.5-3.5) 05/22/20 05:14 [place] # (Auto) 0.8 10^3/uL (0.0-1.0) 05/22/20 05:14 Eos # (Auto) 0.0 10^3/uL (0.0-0.7) 05/22/20 05:14 Baso # (Auto) 0.0 10^3/uL (0.0-0.1) 05/22/20 05:14 Absolute Nucleated RBC 0.00 x10^3/uL 05/22/20 05:14 Nucleated RBC % 0.0 /100WBC 05/22/20 05:14 PT 11.4 secs (9.9-12.6) 05/21/20 06:10 INR 1.0 (0.8-1.2) 05/21/20 06:10 APTT 25.4 secs (24.9-33.3) 05/21/20 06:10 Sodium 136 mmol/L (135-145) 05/22/20 05:14 Potassium 4.0 mmol/L (3.5-5.0) 05/22/20 05:14 Chloride 105 mmol/L (101-111) 05/22/20 05:14 Carbon Dioxide 21 mmol/L (21-32) 05/22/20 05:14 Anion Gap 10.0 (6-13) 05/22/20 05:14 BUN 15 mg/dL (6-20) 05/22/20 05:14 Creatinine 1.0 mg/dL (0.6-1.2) 05/22/20 05:14 Estimated GFR (MDRD) 72 (>89) L 05/22/20 05:14 Glucose 126 mg/dL (70-100) H 05/22/20 05:14 Calcium 8.7 mg/dL (8.5-10.3) 05/22/20 05:14 Magnesium 2.3 mg/dL (1.7-2.8) 05/22/20 05:14 Total Bilirubin 0.8 mg/dL (0.2-1.0) 05/21/20 06:10 AST 23 IU/L (10-42) 05/21/20 06:10 ALT 24 IU/L (10-60) 05/21/20 06:10 Alkaline Phosphatase 37 IU/L (42-121) L 05/21/20 06:10 Total Protein 7.2 g/dL (6.7-8.2) 05/21/20 06:10 Albumin 4.2 g/dL (3.2-5.5) 05/21/20 06:10 Globulin 3.0 g/dL (2.1-4.2) 05/21/20 06:10 Albumin/Globulin Ratio 1.4 (1.0-2.2) 05/21/20 06:10 Triglycerides 123 mg/dL (-149) 05/22/20 05:14 Cholesterol 245 mg/dL (-199) H 05/22/20 05:14 LDL Cholesterol, Calc 175 mg/dL (-129) H 05/22/20 05:14 VLDL Cholesterol 25 mg/dL 05/22/20 05:14 HDL Cholesterol 45 mg/dL (60-) L 05/22/20 05:14 LDL/HDL Ratio 3.9 (<3.6) 05/22/20 05:14 Cholesterol/HDL Ratio 5.4 (<5.0) 05/22/20 05:14 Lipase 28 U/L (22-51) 05/21/20 06:10 TSH 0.83 uIU/mL (0.34-5.60) 05/22/20 05:14 Urine Color YELLOW 05/21/20 07:25 Urine Clarity CLEAR (CLEAR) 05/21/20 07:25 Urine pH 7.5 PH (5.0-7.5) 05/21/20 07:25 Ur Specific [place] 1.015 (1.002-1.030) 05/21/20 07:25 Urine Protein NEGATIVE mg/dL (NEGATIVE) 05/21/20 07:25 Urine Glucose (UA) NEGATIVE mg/dL (NEGATIVE) 05/21/20 07:25 Urine Ketones NEGATIVE mg/dL (NEGATIVE) 05/21/20 07:25 Urine Occult Blood NEGATIVE (NEGATIVE) 05/21/20 07:25 Urine Nitrite NEGATIVE (NEGATIVE) 05/21/20 07:25 Urine Bilirubin NEGATIVE (NEGATIVE) 05/21/20 07:25 Urine Urobilinogen 0.2 (NORMAL) E.U./dL (NORMAL) 05/21/20 07:25 Ur Leukocyte Esterase NEGATIVE (NEGATIVE) 05/21/20 07:25 Ur Microscopic Review NOT INDICATED 05/21/20 07:25 Urine Culture Comments NOT INDICATED 05/21/20 07:25 Nasal Adenovirus (PCR) NOT DETECTED 05/21/20 12:43 Nasal B. parapertussis DNA (PCR) NOT DETECTED 05/21/20 12:43 Nasal Coronavir 229E PCR NOT DETECTED 05/21/20 12:43 Nasal Coronavir HKU1 PCR NOT DETECTED 05/21/20 12:43 Nasal Coronavir NL63 PCR NOT DETECTED 05/21/20 12:43 Nasal Coronavir OC43 PCR NOT DETECTED 05/21/20 12:43 Nasal Enterovir/Rhinovir PCR NOT DETECTED 05/21/20 12:43 Nasal Influenza B PCR NOT DETECTED 05/21/20 12:43 Nasal Influenza A PCR NOT DETECTED 05/21/20 12:43 Nasal Parainfluen 1 PCR NOT DETECTED 05/21/20 12:43 Nasal Parainfluen 2 PCR NOT DETECTED 05/21/20 12:43 Nasal Parainfluen 3 PCR NOT DETECTED 05/21/20 12:43 Nasal Parainfluen 4 PCR NOT DETECTED 05/21/20 12:43 Nasal RSV (PCR) NOT DETECTED 05/21/20 12:43 Nasal B.pertussis DNA PCR NOT DETECTED 05/21/20 12:43 Nasal C.pneumoniae (PCR) NOT DETECTED 05/21/20 12:43 Cuong Human Metapneumo PCR NOT DETECTED 05/21/20 12:43 Nasal M.pneumoniae (PCR) NOT DETECTED 05/21/20 12:43 Nasal SARS-CoV-2 (PCR) NOT DETECTED 05/21/20 12:43 ABX Reporting Has patient been on IV antibiotics over the past 48 hours?: No Current Medications - Current Medications Current Medications: Active Medications Acetaminophen (Tylenol) 650 mg PO Q4HR PRN PRN Reason: Pain 1 to 4 Acetaminophen/Butalbital/Caffeine (Fioricet) 1 tab PO Q4HR PRN PRN Reason: HEADACHE Last Admin: 05/21/20 19:39 Dose: 1 tab Documented by: Amlodipine Besylate (Norvasc) 5 mg PO DAILY [facility] Last Admin: 05/22/20 11:57 Dose: 5 mg Documented by: Aspirin ([facility] Aspirin) 81 mg PO DAILY [facility] Last Admin: 05/22/20 09:32 Dose: 81 mg Documented by: Atorvastatin Calcium (Lipitor) 80 mg PO QPM [facility] Last Admin: 05/21/20 20:16 Dose: 80 mg Documented by: Clopidogrel Bisulfate (Plavix) 75 mg PO DAILY [facility] Last Admin: 05/22/20 11:57 Dose: 75 mg Documented by: Enoxaparin Sodium (Lovenox) 40 mg SUBQ DAILY [facility] Last Admin: 05/22/20 09:23 Dose: 40 mg Documented by: Famotidine (Pepcid) 20 mg PO BID [facility] Last Admin: 05/22/20 09:31 Dose: 20 mg Documented by: Hydralazine HCl (Apresoline Inj) 10 mg IVP Q4H PRN PRN Reason: Hypertensive Emergency Levothyroxine Sodium (Synthroid) 112 mcg PO QDAC [facility] Last Admin: 05/22/20 06:48 Dose: 112 mcg Documented by: Lisinopril (Zestril) 40 mg PO DAILY [facility] Last Admin: 05/22/20 09:29 Dose: 40 mg Documented by: Metoprolol Succinate (Toprol Xl) 37.5 mg PO DAILY [facility] Last Admin: 05/22/20 09:28 Dose: 37.5 mg Documented by: Niacin (Niaspan) 1,000 mg PO DAILY [facility] Last Admin: 05/22/20 11:56 Dose: 1,000 mg Documented by: Ondansetron HCl (Zofran Inj) 4 mg IVP Q6HR PRN PRN Reason: Nausea / Vomiting Sodium Chloride (Normal Saline Flush 0.9%) 10 ml IVP PRN PRN PRN Reason: NEEDED PER PROVIDER ORDERS Sodium Chloride (Normal Saline Flush 0.9%) 10 ml IVP 0100,0900,1700 [facility] Last Admin: 05/22/20 12:04 Dose: 10 ml Documented by: Aspirin [Children's Aspirin] 81 mg PO DAILY 08/27/13 Clopidogrel [Plavix] 75 mg PO DAILY 08/27/13 Famotidine [Pepcid] 20 mg PO BID 08/27/13 Metoprolol Succinate [Toprol Xl] 50 mg PO DAILY 08/27/13 Atorvastatin Calcium [Lipitor] 80 mg PO QPM 06/28/14 Multivitamin [Multivitamins] 1 tab PO DAILY 06/28/14 Niacin [Slo-Niacin] 1,000 mg PO DAILY 06/28/14 Levothyroxine [Synthroid] 112 mcg PO QDAC 03/04/15 Ubidecarenone [Coenzyme Q-10] 200 mg PO DAILY MDD 300mg 10/06/17 Lisinopril [Zestril] 40 mg PO DAILY 05/21/20 amLODIPine [Norvasc] 5 mg PO DAILY 05/21/20 predniSONE [Deltasone] 15 mg PO QDBREAKFAST 05/21/20
[2020-05-22] MEDS: ATORVASTATIN 40 MG TABLET PO SCH (20:57)
[2020-05-23] MEDS: LEVOTHYROXINE 112 MCG TABLET PO SCH (06:05)
[2020-05-23 06:28] LABS: BASOPHILS % (AUTO) 0.4 %; EOSINOPHILS # (AUTO) 0.1 10^3/uL (0.0-0.7); HGB - HEMOGLOBIN 15.6 g/dL (14.0-18.0); LYMPHOCYTES # (AUTO) 2.5 10^3/uL (1.5-3.5); LYMPHOCYTES % (AUTO) 31.8 %; MEAN CORPUSCULAR HEMOGLOBIN 31.6 pg (27.0-31.0); MEAN CORPUSCULAR HGB CONC 33.8 g/dL (32.0-36.0); MEAN CORPUSCULAR VOLUME 93.5 fL (80.0-94.0); MEAN PLATELET VOLUME 9.4 fL (7.4-11.4); MONOCYTES # (AUTO) 0.8 10^3/uL (0.0-1.0); MONOCYTES % (AUTO) 10.1 %; NEUTROPHILS # (AUTO) 4.4 10^3/uL (1.5-6.6); NEUTROPHILS % (AUTO) 56.3 %; PLT - PLATELET COUNT 175 10^3/uL (130-450); RED BLOOD COUNT 4.94 10^6/uL (4.70-6.10); RED CELL DISTRIBUTION WIDTH 12.9 % (12.0-15.0); WHITE BLOOD COUNT 7.9 x10^3/uL (4.8-10.8)
[2020-05-23 06:39] LABS: CALCIUM 8.9 mg/dL (8.5-10.3); CREATININE 1.1 mg/dL (0.6-1.2)
[2020-05-23] MEDS: amLODIPine 5 MG TABLET PO SCH (08:57)
[2020-05-23] MEDS: lisinopriL 20 MG TABLET PO SCH (08:58)
[2020-05-23] MEDS: METOPROLOL SUCCINATE 25 MG TABLET PO SCH (08:58)
[2020-05-23] MEDS: CLOPIDOGREL 75 MG TABLET PO SCH (08:59)
[2020-05-23] MEDS: NIACIN ER 500 MG TABLET PO SCH (08:59)
[2020-05-23] MEDS: ASPIRIN CHEW 81 MG TABLET PO SCH (08:59)
[2020-05-23] MEDS: FAMOTIDINE 20 MG TABLET PO SCH (08:59)
[2020-05-23] MEDS: ENOXAPARIN 40 MG/0.4 ML SYRINGE SUBQ SCH (09:01)
[2020-05-23] MEDS: SODIUM CHLORIDE FLUSH 0.9% 10 ML SYRINGE IVP SCH (09:05)
--- NOTE | 2020-05-23 10:55 | Discharge Plan ---
Discharge Plan Problem Reviewed?: Yes Disposition: Home, Self Care Condition: Stable Diet: Regular Activity Restrictions: Activity as Tolerated Shower Restrictions: No Driving Restrictions: Yes (no driving) Health Concerns: You presented to the emergency room with fatigue, wanting to sleep a lot, worse headaches, and your thought you are having slurred speech. In the past you have had several episodes of transient ischemic attacks and you were followed by primary care provider and a neurologist at the [facility]. This appears to be 1 of those episodes. We did a CAT scan of your head which showed no new disease. We did an angiogram which is a dye study of the neck and head arteries those showed the same slight thickening of the arteries you have always had. We then did an MRI of your brain and that was normal. Every once in a while atrial fibrillation can give increased risk of stroke because of clots formed in your heart and we did an echocardiogram. That is an ultrasound study of your heart. Your ability to pump blood is on the lower level of normal. It is 50 to 55%. The muscle appears slightly weaker. There is no significant valve disease. No clots in your heart. We did speak to your neurologist to see if you need to be transferred for further work-up. They feel that this is your usual complaints, slightly worse than usual, that we did not need to transfer you. I did not recommend any change in her medication. Plan of Treatment: 1. Follow-up with your primary care provider, Dr. Garcias, in the next 2 weeks. 2. Follow-up with your neurologist at [facility]. 3. There are no changes in your medication Care Goals: To have a definitive diagnosis about why you have these episodes. You are showing signs of memory loss. Word finding is difficult for you, dates are difficult for you, and at times you have problems naming items. Assessment: Patient is by himself when we are having this discussion. He promises to follow through. But his memory loss may be problematic. We will make sure that his primary care provider gets a copy of this plan. No Smoking: If you smoke, Please STOP! Call for help. Follow-up with: Guy Goodson MD [Primary Care Provider] -
--- NOTE | 2020-05-23 11:12 | DISCHARGE SUMMARY ---
"Discharge Summary Admit Date: 05/21/20 Discharge Date: 05/23/20 Discharging Provider: Yaz Tsai MD Primary Care Provider: Guy Goodson MD Code Status: Attempt Resuscitation Condition at Discharge: Stable Discharge Disposition: 01 Home, Self Care - DIAGNOSES Discharge Diagnoses with Status of Each Condition: 1. Sudden neurological deficit 2. Chronic cognitive deficits 3. Headache 4. Hypertension 5. Hypothyroidism - HPI History of Present Illness: Mr. 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 Patient is alert oriented +2. Patient reported he feels fatigued and Wanted to sleep because he reported he has no much sleep on last night. Patient reported in this morning around 3-4 AM when he woke up he feel headache and his found he was worsening slurring speech. Patient reported he had no issue walk to the bathroom. In my examination patient did have slurring speech, but pt also has baseline of some degree of slurred speech as well. there is only a very slight facial droop noted. CTA of head show no acute intracranial disease, no large vessel occlusion. CTA of the neck show less than 50% stenosis of origins of internal carotid artery, mild to moderate stenosis of origin of right vertebral artery, Left vertebral artery is full patent. Chest x-ray is unremarkable. Routine laboratory test was unremarkable, COVID-19 was negative. Patient is afebrile, hemodynamic stable right now. Patient is admitted for for TIA/stroke work-up Discussed the care goal with patient, patient request full code - Past Medical History Cardiovascular: reports: Hypertension, Atrial fibrillation Respiratory: reports: None Endocrine/Autoimmune: reports: HyPOthyroidism GI: reports: GERD : reports: Benign prostate hypertrophy, Other HEENT: reports: None Psych: reports: None Musculoskeletal: reports: Osteoarthritis Derm: reports: None MRSA Hx?: No - Past Surgical History Cardiovascular: reports: CABG, Coronary stent, AAA - CONSULTS | PROCEDURES Procedures: 1. Head and neck CT angiogram with no acute intracranial disease process. No large vessel occlusion, no hemodynamically significant vascular stenosis, no vascular dissection or aneurysm. There is diffuse tubular volume loss with periventricular and subcortical white matter chronic microvascular ischemic changes. Ventricles are normal in size and shape. Basal cisterns patent. 2. Chest x-ray without acute cardiopulmonary process. 3. Brain MRI without acute intracranial process. No infarction, intracranial mass, mass-effect, but he does have moderate diffuse cerebral volume loss. Moderate periventricular and subcortical white matter chronic microvascular ischemic changes are present. Mild ventriculomegaly stable compared to prior examination. Small amount of fluid in the mastoid cells. There is Ms. dictation noted in the MRI report. I spoke to the on-call radiologist on May 23 at approximately 11 AM to let him know to have Dr. Morton redo his dictation. - HOSPITAL COURSE Hospital Course: The patient was evaluated as a possible TIA. As the evaluation went on, he has baseline cognitive deficits that did not seem to be noted by he or his . He appears to have a baseline dementia with word finding problems and memory problems. He reluctantly acknowledges them. He feels that he was here because of a headache. He does not seem to be aware that he had slurred speech but is aware that he was having quite a few problems finding his words. The headache is now resolved. With that the slurred speech. However expressive aphasia is still present. He is able to name items correctly, tell me the date of May 23. But as the conversation goes on, he loses his ability to focus, and struggles to find the names or words or dates for when something happened. The hospitalist on service that was taking care of him had contacted Neurology education department chair at . They do not feel that he needed to be transferred for higher level of care for neurological evaluation. Neurology felt that this was actually the patient's baseline. As such there is no change in medication. Possibility of normal pressure hydrocephalus was entertained.Per the [employer] note: Concern pt's symptoms in the admission, and normal pressure hydrocephalus, I called Jigna Oh, neurologist, she could not see the whole picture of MRI but see partial CTA of head because our computer could not send whole image. Our computer system was shut down at this afternoon. she see ventriculomegaly but she believe this is chronic process, advise pt does not need to be transferred now, followup with hydrocephalus center as out-pt. He is discharged in stable condition. Temperature 36.5, pulse 71, blood pressure 157/97. Respirations 18 and 97% on room air. He is a very pleasant, 6 foot tall, 92.5 kg white male who looks his stated age. Neck is supple. No increased respiratory effort with speaking to me and lungs are clear without crackles, rhonchi, wheezing. He has a regular rate and rhythm. Does have a history of A. fib but he is in sinus at this time. Abdomen is obese, soft, nontender, normal bowel sounds, protuberant. Extremities without edema. There is no facial droop, speech is intact except for the word finding difficulties and the memory difficulties. 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 Strength of lifting up his legs, holding him against pressure are normal. Reflexes are normal. No tremors. I am asking him to follow-up with his primary care provider Dr. Goodson and also see a neurologist at [facility], [place]. - ALLERGIES Allergies/Adverse Reactions: Allergies Allergy/AdvReac Type Severity Reaction Status Date / Time Sulfa (Sulfonamide Allergy Hives Verified 05/21/20 06:47 Antibiotics) - MEDICATIONS Home Medications: Ambulatory Orders Medication Instructions Recorded Confirmed Aspirin [Children's Aspirin] 81 mg PO DAILY 08/27/13 05/21/20 Clopidogrel [Plavix] 75 mg PO DAILY 08/27/13 05/21/20 Famotidine [Pepcid] 20 mg PO BID 08/27/13 05/21/20 Metoprolol Succinate [Toprol Xl] 50 mg PO DAILY 08/27/13 05/21/20 Atorvastatin Calcium [Lipitor] 80 mg PO QPM 06/28/14 05/21/20 Multivitamin [Multivitamins] 1 tab PO DAILY 06/28/14 05/21/20 Niacin [Slo-Niacin] 1,000 mg PO DAILY 06/28/14 05/21/20 Levothyroxine [Synthroid] 112 mcg PO QDAC 03/04/15 05/21/20 Ubidecarenone [Coenzyme Q-10] 200 mg PO DAILY MDD 300mg 10/06/17 05/21/20 Lisinopril [Zestril] 40 mg PO DAILY 05/21/20 05/21/20 amLODIPine [Norvasc] 5 mg PO DAILY 05/21/20 05/21/20 predniSONE [Deltasone] 15 mg PO QDBREAKFAST 05/21/20 05/21/20 - LABS Result Diagrams: 05/23/20 06:16 05/23/20 06:16"
[2020-05-23 11:19] VITALS: BP 114/70
== END 2020-05-23 13:22 | disposition home or self-care (01) ==
LOC: EDUNIT# → ED 05:47 → MS2 12:15
PROVIDERS: ADMIT Nurse Practitioner Gerontology; ATTEND Specialist
DX: R29.818 Other symptoms and signs involving the nervous system (principal); R41.89 Other symptoms and signs involving cognitive functions and awareness; R51.9 Headache, unspecified; I69.328 Other speech and language deficits following cerebral infarction; F03.90 Unspecified dementia, unspecified severity, without behavioral disturbance, psychotic disturbance, mood disturbance, and anxiety; I10 Essential (primary) hypertension; E03.9 Hypothyroidism, unspecified; R53.83 Other fatigue; G91.2 (Idiopathic) normal pressure hydrocephalus; R29.810 Facial weakness; Z95.1 Presence of aortocoronary bypass graft; Z95.5 Presence of coronary angioplasty implant and graft; Z79.02 Long term (current) use of antithrombotics/antiplatelets; Z79.82 Long term (current) use of aspirin; I65.01 Occlusion and stenosis of right vertebral artery; R47.01 Aphasia
CPT/HCPCS: 36415; 51798; 70496; 70498; 70551; 71045; 80048; 80053; 80061; 81003; 83690; 83735; 84443; 85025; 85610; 85730; 87631; 93005; 93306; 96372; 96374; 96375; 97162; 97166; 99284; 99285; A9270; G0378; J1650; Q9967; 0202U; 81001; 83721; 87086

== ENCOUNTER 2021-01-16 09:24 | Outpatient (CLI) | payer MEDICARE | END 2021-01-16 09:25 | disposition critical access hospital (66) | LOC: EMS 09:24 | DX: R10.32 Left lower quadrant pain (principal); R10.31 Right lower quadrant pain | CPT/HCPCS: A0425; A0429 ==

== ENCOUNTER 2021-01-16 09:35 | Emergency (ER) | payer MEDICARE ==
--- NOTE | 2021-01-16 09:36 | ED Physician Documentation ---
PD HPI ABD PAIN - Stated complaint Stated Complaint: ABD PX - History obtained from History obtained from: Patient, EMS - History of Present Illness Timing - onset: How many weeks ago (has had abd cramps and poor stool output for weeks or more. Had abrupt worsening of cramping abd pains last night into this morning. Had taken stool softener Miralax and a tablet as well. Small BM this moring about 5 am, which helped the pain some. Recent Dx colon CA with liver mets 1-2 months ago.) Timing - details: Gradual onset, Still present (not as severe now as was at times overnight.), Waxing and waning Quality: Cramping, Aching, Fullness/distended Location: All over / everywhere Improved by: BM Worsened by: Eating Associated symptoms: Nausea, Constipation, Loss of appetite (for few days). No: Fever, Vomiting, Diarrhea, Melena, Hematochezia, Dysuria Recently seen: Clinic (Seen by his Primary Care after CT aorta in follow up of his aneurysm stent, which found the colon CA and liver mets. Saw Oncology last week. Has CT chest planned for tomorrow to eval for lung mets. Still in process of getting set up for biopsy/surgery.) Review of Systems Constitutional: denies: Fever, Chills Nose: denies: Rhinorrhea / runny nose, Congestion Throat: denies: Sore throat Respiratory: denies: Cough PD PAST MEDICAL HISTORY - Past Medical History Cardiovascular: Hypertension, Atrial fibrillation Respiratory: None Neuro: TIA Endocrine/Autoimmune: HyPOthyroidism GI: GERD : Benign prostate hypertrophy, Other HEENT: None Psych: None Musculoskeletal: Osteoarthritis Derm: None - Past Surgical History Past Surgical History: Yes Cardiovascular: CABG, Coronary stent, AAA - Present Medications Home Medications: Ambulatory Orders Medication Instructions Recorded Confirmed Clopidogrel [Plavix] 75 mg PO DAILY 08/27/13 01/16/21 Atorvastatin Calcium [Lipitor] 80 mg PO QPM 06/28/14 01/16/21 Multivitamin [Multivitamins] 1 tab PO DAILY 06/28/14 01/16/21 Levothyroxine [Synthroid] 112 mcg PO QDAC 03/04/15 01/16/21 Lisinopril [Zestril] 40 mg PO DAILY 05/21/20 01/16/21 amLODIPine [Norvasc] 5 mg PO DAILY 05/21/20 01/16/21 Amox/Clav 875/125 [Augmentin] 1 each PO Q12H #10 tablet 01/16/21 Docusate Sodium 100Mg Capsule 100 mg PO DAILY #20 cap 01/16/21 [Colace 100Mg Capsule] HYDROcod/ACETAM 5/325 [[place] 5/325] 1 ea PO Q6H PRN #10 tablet 01/16/21 Ondansetron Odt [Zofran] 4 mg TL Q6H PRN #10 tablet 01/16/21 - Allergies Allergies/Adverse Reactions: Allergies Allergy/AdvReac Type Severity Reaction Status Date / Time Sulfa (Sulfonamide Allergy Hives Verified 01/16/21 09:40 Antibiotics) - Social History Does the pt smoke?: No Smoking Status: Never smoker Does the pt drink ETOH?: Yes Does the pt have substance abuse?: No - Immunizations Immunizations are current?: Yes - POLST Patient has POLST: No POLST Status: DNR PD ED PE NORMAL - Vitals Vital signs reviewed: Yes - General General: Alert and oriented X 3, No acute distress, Well developed/nourished - HEENT HEENT: Moist mucous membranes, Pharynx benign - Neck Neck: Supple, no meningeal sign, No adenopathy - Cardiac Cardiac: RRR, No murmur - Respiratory Respiratory: Clear bilaterally - Abdomen Abdomen: Normal bowel sounds, Soft, Non distended, No organomegaly, Other (mid abdomen tenderness without guarding nor percussion tenderness. ) - Rectal Rectal: Deferred - Back Back: No CVA TTP - Derm Derm: Normal color, Warm and dry - Extremities Extremities: No tenderness to palpate, No edema, No calf tenderness / cord - Neuro Neuro: Alert and oriented X 3, No motor deficit, Normal speech Results - Vitals Vitals: Vital Signs - 24 hr 01/16/21 01/16/21 01/16/21 09:42 11:36 13:00 Temperature 37.2 C Heart Rate 98 79 78 Respiratory 20 19 20 Rate Blood Pressure 152/86 H 123/75 131/74 H O2 Saturation 98 97 98 Oxygen O2 Source Room air - Labs Labs: Laboratory Tests 01/16/21 01/16/21 01/16/21 10:15 10:15 Unknown WBC 17.7 H RBC 5.02 Hgb 14.3 Hct 43.6 MCV 86.9 MCH 28.5 MCHC 32.8 RDW 14.0 Plt Count 235 MPV 9.5 Neut # (Auto) 14.3 H Lymph # (Auto) 2.3 [place] # (Auto) 0.9 Eos # (Auto) 0.1 Baso # (Auto) 0.0 Absolute Nucleated RBC 0.00 Nucleated RBC % 0.0 Sodium 133 L Potassium 4.1 Chloride 96 L Carbon Dioxide 23 Anion Gap 14.0 H BUN 16 Creatinine 1.3 H Estimated GFR (MDRD) 53 L Glucose 146 H Calcium 9.3 Total Bilirubin 2.4 H AST 24 ALT 16 Alkaline Phosphatase 83 Total Protein 8.0 Albumin 3.9 Globulin 4.1 Albumin/Globulin Ratio 1.0 Lipase 19 L Urine Color DARK YELLOW Urine Clarity CLEAR Urine pH 6.0 Ur Specific [place] 1.025 Urine Protein 100 H Urine Glucose (UA) NEGATIVE Urine Ketones 15 H Urine Occult Blood SMALL H Urine Nitrite NEGATIVE Urine Bilirubin NEGATIVE Urine Urobilinogen 0.2 (NORMAL) Ur Leukocyte Esterase NEGATIVE Urine RBC 0-5 Urine WBC 0-3 Ur Squamous Epith Cells FEW Squamous Urine Bacteria Few Ur Microscopic Review INDICATED Urine Culture Comments NOT INDICATED - Rads (name of study) chest/abd CT Radiology: Prelim report reviewed (no lungs nor bone mets. Livers mets identified. Sigmoic thickening c/w colon CA. Small bowel colitis/inflammation distal small bowel. ), See rad report PD MEDICAL DECISION MAKING - ED course Complexity details: reviewed results (CT showing sigmoid thickening, presume the recently Dx colon CA, and known liver mets. No lung nor bone mets. There is also small bowel thickening c/w colitis. This may be his cramps, or just constipation. ), considered differential, d/w patient Departure - Departure Disposition: 01 Home, Self Care Clinical Impression: Colitis, acute, Colon cancer metastasized to liver Abdominal pain Qualifiers: Abdominal location: generalized Qualified Code(s): R10.84 - Generalized abdominal pain Condition: Stable Record reviewed to determine appropriate education?: Yes Instructions: ED Abdominal Pain Unkn Cause Follow-Up: RADHA SWAIN MD [Physician No Access] - Prescriptions: Amox/Clav 875/125 [Augmentin] 1 each PO Q12H #10 tablet Docusate Sodium 100Mg Capsule [Colace 100Mg Capsule] 100 mg PO DAILY #20 cap HYDROcod/ACETAM 5/325 [[place] 5/325] 1 ea PO Q6H PRN #10 tablet PRN Reason: Pain Ondansetron Odt [Zofran] 4 mg TL Q6H PRN #10 tablet PRN Reason: Nausea / Vomiting Comments: Your CT scan showed the thickening in the sigmoid colon and also liver metastases. No signs of lung or bone metastases. It also showed an area of inflammation in the lower small bowel that may be consistent with some acute colitis or infection of the intestinal wall. Your white count is slightly elevated as well. This may account for some of the cramping pain you are having. Continue your MiraLAX and stool softeners. Add docusate once or twice daily as well. Continue your other usual medicines. Add Augmentin antibiotic twice daily for 5 days for concern of infectious colitis as well. Add Tylenol or hydrocodone if needed for abdominal pains and ondansetron if needed for nausea. You would not need to get your CT scan of the chest tomorrow as we did include that today. Follow-up with Dr. Swain as planned. Return if worsening. I am prescribing a short course of narcotic pain medication for you. These are potentially dangerous and addictive medications that should be used carefully. These medications may constipate you. Take an gnhe-nbn-pxyzgoa stool softener such as docusate twice daily with plenty of water while taking these medications. If you go 24 hours without a bowel movement, take vnvi-yna-vkulroa MiraLAX, per package instructions. Do not drink or drive while taking these medications. If you received narcotic or sedating medications while in the emergency department do not drive for 24 hours. Store this medication in a safe, secure place and out of reach of children. It is a violation of federal law to give or sell this medication to another person or to use in a manner other than prescribed. The ED will not refill narcotic prescriptions, including prescriptions lost or stolen. You can dispose of unwanted medications at the [facility]'s office or at several pharmacies such as [facility]. Discharge Date/Time: 01/16/21 12:41
[2021-01-16] MEDS ORDERED: ONDANSETRON 4 MG/2 ML VIAL IVP STA (09:53)
[2021-01-16] MEDS ORDERED: KETOROLAC 15 MG/ML VIAL IVP STA (09:54)
[2021-01-16] MEDS ORDERED: BISACODYL 10 MG SUPP PR STA (09:54)
[2021-01-16] MEDS ORDERED: SODIUM CHLORIDE 0.9% 1,000 ML IV STA (09:55)
[2021-01-16] MEDS ORDERED: IOVERSOL 320 100 ML VIAL IVP ONE ×2 (10:01→12:44)
[2021-01-16 10:27] LABS: GLUCOSE, URINE (UA) NEGATIVE (NEGATIVE); KETONES,URINE (UA) 15 mg/dL (NEGATIVE); LEUKOCYTE ESTERASE, URINE NEGATIVE (NEGATIVE); NITRITE,URINE NEGATIVE (NEGATIVE); OCCULT BLOOD,URINE SMALL (NEGATIVE); PROTEIN,URINE 100 mg/dL (NEGATIVE); UROBILINOGEN,URINE 0.2 (NORMAL) E.U./dL (NORMAL)
[2021-01-16 10:30] LABS: BASOPHILS % (AUTO) 0.2 %; EOSINOPHILS # (AUTO) 0.1 10^3/uL (0.0-0.7); EOSINOPHILS % (AUTO) 0.7 %; HCT - HEMATOCRIT 43.6 % (42.0-52.0); HGB - HEMOGLOBIN 14.3 g/dL (14.0-18.0); LYMPHOCYTES # (AUTO) 2.3 10^3/uL (1.5-3.5); LYMPHOCYTES % (AUTO) 12.7 %; MEAN CORPUSCULAR HEMOGLOBIN 28.5 pg (27.0-31.0); MEAN CORPUSCULAR HGB CONC 32.8 g/dL (32.0-36.0); MEAN CORPUSCULAR VOLUME 86.9 fL (80.0-94.0); MEAN PLATELET VOLUME 9.5 fL (7.4-11.4); MONOCYTES # (AUTO) 0.9 10^3/uL (0.0-1.0); MONOCYTES % (AUTO) 5.1 %; NEUTROPHILS # (AUTO) 14.3 10^3/uL (1.5-6.6); NEUTROPHILS % (AUTO) 80.9 %; PLT - PLATELET COUNT 235 10^3/uL (130-450); RED BLOOD COUNT 5.02 10^6/uL (4.70-6.10); WHITE BLOOD COUNT 17.7 x10^3/uL (4.8-10.8)
[2021-01-16 10:40] LABS: ALBUMIN 3.9 g/dL (3.2-5.5); BILIRUBIN,TOTAL 2.4 mg/dL (0.2-1.0); CALCIUM 9.3 mg/dL (8.5-10.3); CREATININE 1.3 mg/dL (0.6-1.2); POTASSIUM 4.1 mmol/L (3.5-5.0)
[2021-01-16 10:43] LABS: CLARITY,URINE CLEAR (CLEAR)
[2021-01-16 10:45] LABS: BACTERIA,URINE Few /HPF (None Seen); BILIRUBIN,URINE NEGATIVE (NEGATIVE); ICTOTEST,URINE NEGATIVE; RBC,URINE 0-5 /HPF (0-5); SQUAMOUS EPITHELIAL CELL,UR FEW Squamous (<= Few); WBC,URINE 0-3 /HPF (0-3)
--- NOTE | 2021-01-16 11:43 | CT Report ---
PROCEDURE: Abdomen/Pelvis W INDICATIONS: Abdominal pain, acute, nonlocalized CONTRAST: IV CONTRAST: Optiray 320 ml: 100 PO CONTRAST: *NO PO CONTRAST TECHNIQUE: After the administration of IV contrast, 5 mm thick sections acquired from the diaphragms to the symp hysis. 5 mm thick coronal and sagittal reformats were acquired. For radiation dose reduction, the f ollowing was used: automated exposure control, adjustment of mA and/or kV according to patient size. COMPARISON: 10/16/2018. Correlation is made with the accompanying chest CT, 01/16/2021. FINDINGS: Image quality: Excellent. ABDOMEN: Lung bases: Lung bases are clear. Heart size is normal. The inferior most sternotomy wire can be s een. There is at least moderate coronary artery calcification. Solid organs: Along the posterior aspect of the liver, there is a poorly defined rim-enhancing mass seen that measures 5.9 cm in greatest axial dimension, with a craniocaudal extent of 7.4 cm. A simila r-appearing smaller mass is seen at the right liver dome which demonstrates low density and mild rim enhancement measuring up to 2.2 cm. Additional smaller liver lesions are seen. These masses are new c ompared to 2019. Gallbladder wall does not appear thickened. Biliary system is non dilated. Pancreas enhances norm ally. The pancreas demonstrates normal size and enhances normally. An accessory splenule is incident ally noted along the hilum of the primary spleen. No adrenal nodules. Kidneys demonstrate normal size and enhancement, without hydronephrosis. A simple appearing cyst can be seen along the posterior aspect of the left kidney that measures 11 mm and moderate density. At t he inferior pole of the right kidney, there is a simple appearing, nonenhancing cyst seen that measur es up to 1.7 cm. Smaller simple appearing cysts can be seen elsewhere. Peritoneum and bowel: Focal wall thickening with hyperenhancement can be seen involving the sigmoid c olon, with surrounding inflammatory change. No kerwin free air or free fluid can be seen. There is foc al wall thickening seen involving the distal small bowel, which is best appreciated on coronal images , as on series 6 images 23 through 25. There is generalized prominence of small bowel loops, which me asure up to 2.5 cm. No free air or significant free fluid can be seen. Nodes and vessels: No retroperitoneal or mesenteric adenopathy by size criteria. Aorta and inferior vena cava are normal in size. A patent abdominal aortic stent graft is seen, which extends into the common iliac arteries. Miscellaneous: No ventral hernias. PELVIS: Genitourinary: Bladder wall thickness is normal. Miscellaneous: No inguinal hernias or adenopathy. Bones: No suspicious bony lesions. No vertebral body compression fractures. Mild dextroconvex scol iotic curvature is seen. Degenerative changes are seen throughout, which are worst at the L5-S1 level . IMPRESSION: Focal wall thickening can be seen involving the sigmoid colon, with moderate associated inflammatory change. Please correlate with colonoscopy results in this patient with a given history o f recent colon cancer diagnosis. No kerwin findings of perforation or abscess can be seen. Masses are seen involving the liver, including a 7.4 cm mass involving the right liver posteriorly, w hich represents metastatic disease until proven otherwise. There is of focal wall thickening can be seen involving the distal small bowel, which may be secondar y to the colonic inflammatory change. Incidental note is made of: Sternotomy wire At least moderate coronary artery calcification Simple appearing bilateral renal cysts Patent aortobiiliac stent graft Focal L5-S1 degenerative change Reviewed by: Rosas Combs MD on 01/16/2021 10:42 AM HAYDEN Approved by: Rosas Combs MD on 01/16/2021 10:42 AM HAYDEN Station ID: [id number]
--- NOTE | 2021-01-16 11:47 | CT Report ---
PROCEDURE: CHEST W INDICATIONS: recent Dx colon CA with liver mets; abd/chest pain CONTRAST: IV CONTRAST: Optiray 320 ml: 100 PO CONTRAST: *NO PO CONTRAST TECHNIQUE: After the administration of intravenous contrast, 5 mm thick sections acquired from the pulmonary api branden to the posterior costophrenic angles. 7 mm thick coronal MIP reformats were acquired. For radia tion dose reduction, the following was used: automated exposure control, adjustment of mA and/or kV according to patient size. COMPARISON: No prior chest CT examinations are available for review at the time of this dictation. C orrelation is made with the accompanying abdomen and pelvis CT, 01/16/2021. Correlation is also made w ith the prior chest radiograph, 05/21/2020 FINDINGS: Image quality: Excellent. Lungs and pleura: No acute air space opacities. No pleural effusions or pneumothorax. Central and peripheral airways are patent and normal in caliber. Mediastinum: At least moderate coronary artery calcification can be seen. Heart size is normal. No p ericardial effusion. No mediastinal or hilar adenopathy by size criteria. Thoracic aorta and centra l pulmonary arteries are normal in size. Esophagus is normal in caliber. There is a small hiatal her rhiannon. Bones and chest wall: Sternotomy changes are noted. No suspicious bony lesions. Age-appropriate de generative changes are seen. No vertebral body compression fractures. No axillary or supraclavicul ar adenopathy by size criteria. The thyroid is normal in size and there are no incidental findings.. Abdomen: Enhancing liver lesions are seen, including a mass measuring at least 6 cm along the gis software developer ior aspect of the right liver. An accessory splenule is incidentally noted along the hilum of the pr imary spleen. There is partial visualization of an abdominal aortic stent graft. The visualized port ions of the upper abdominal structures are otherwise within normal limits. IMPRESSION: No findings of pulmonary metastatic disease can be seen in this patient with a known clinical history of recent colon cancer with liver metastases. Liver metastases are again seen. Incidental note is made of: Sternotomy wires At least moderate coronary artery calcification Small hiatal hernia Accessory splenule Abdominal aortic stent graft partially seen Reviewed by: Rosas Combs MD on 01/16/2021 10:45 AM HAYDEN Approved by: Rosas Combs MD on 01/16/2021 10:45 AM AKKIM Station ID: [id number]
[2021-01-16] MEDS ORDERED: AMOX/CLAV 875 MG/125 MG TABLET PO STA (12:36)
[2021-01-16 13:02] VITALS: BP 131/74
== END 2021-01-16 12:41 | disposition home or self-care (01) ==
LOC: EDUNIT# → ED 09:35
DX: K52.9 Noninfective gastroenteritis and colitis, unspecified (principal); C18.7 Malignant neoplasm of sigmoid colon; C78.7 Secondary malignant neoplasm of liver and intrahepatic bile duct; I48.91 Unspecified atrial fibrillation; Z79.02 Long term (current) use of antithrombotics/antiplatelets; I10 Essential (primary) hypertension; Z66 Do not resuscitate
CPT/HCPCS: 36415; 71260; 74177; 80053; 81001; 83690; 85025; 96374; 96375; 99284; A9270; Q9967; 81003; 87086

== ENCOUNTER 2021-02-08 05:54 | Outpatient (CLI) | payer MEDICARE | END 2021-02-08 05:55 | disposition critical access hospital (66) | LOC: EMS 05:54 | DX: R51.9 Headache, unspecified (principal); R41.0 Disorientation, unspecified; R47.01 Aphasia | CPT/HCPCS: A0425; A0429 ==

== ENCOUNTER 2021-02-08 06:03 | Emergency (ER) | payer MEDICARE ==
[2021-02-08] MEDS ORDERED: SODIUM CHLORIDE 0.9% 1,000 ML IV STA (06:11)
[2021-02-08 06:19] LABS: BASOPHILS % (AUTO) 0.5 %; EOSINOPHILS # (AUTO) 0.2 10^3/uL (0.0-0.7); EOSINOPHILS % (AUTO) 2.9 %; HGB - HEMOGLOBIN 12.7 g/dL (14.0-18.0); LYMPHOCYTES % (AUTO) 32.8 %; MEAN CORPUSCULAR HEMOGLOBIN 27.8 pg (27.0-31.0); MEAN CORPUSCULAR HGB CONC 31.8 g/dL (32.0-36.0); MEAN CORPUSCULAR VOLUME 87.5 fL (80.0-94.0); MEAN PLATELET VOLUME 8.8 fL (7.4-11.4); MONOCYTES # (AUTO) 0.6 10^3/uL (0.0-1.0); MONOCYTES % (AUTO) 10.2 %; NEUTROPHILS # (AUTO) 3.3 10^3/uL (1.5-6.6); NEUTROPHILS % (AUTO) 53.3 %; PLT - PLATELET COUNT 252 10^3/uL (130-450); RED BLOOD COUNT 4.57 10^6/uL (4.70-6.10); WHITE BLOOD COUNT 6.2 x10^3/uL (4.8-10.8)
--- NOTE | 2021-02-08 06:25 | ED Physician Documentation ---
History of Present Illness - Stated complaint Stated Complaint: STROKE - Chief complaint Chief Complaint: Neuro - History obtained from History obtained from: Patient - Additonal information Additional information: 85-year-old man with history of May 2020 TIA, mild dementia, newly dx'd colon CA with liver mets (not currently on treatment, full code), coronary artery disease on Plavix, high blood pressure, hyperlipidemia, hypothyroidism, presents with acute confusion this morning upon waking at 5 AM along with some slurred speech and facial droop noted by . This lasted about 30 minutes and resolved prior to EMS arrival. Also with 4 out of 10 headache. EMS notes that he called his OxyContin "nausea medication". Patient AO x3 in the emergency department without any neurological deficits. States that the only meds he took this am was 162 of asa. LSN 10pm last night. ambulatory with cane at baseline. Review of Systems Unable to obtain: Other (2/2 patient acuity (code stroke)) PD PAST MEDICAL HISTORY - Past Medical History Past Medical History: Yes Cardiovascular: Hypertension, Atrial fibrillation Respiratory: None Neuro: TIA Endocrine/Autoimmune: HyPOthyroidism GI: GERD : Benign prostate hypertrophy, Other HEENT: None Psych: None Musculoskeletal: Osteoarthritis Derm: None - Past Surgical History Past Surgical History: Yes Cardiovascular: CABG, Coronary stent, AAA - Present Medications Home Medications: Ambulatory Orders Medication Instructions Recorded Confirmed Clopidogrel [Plavix] 75 mg PO DAILY 08/27/13 01/16/21 Atorvastatin Calcium [Lipitor] 80 mg PO QPM 06/28/14 01/16/21 Multivitamin [Multivitamins] 1 tab PO DAILY 06/28/14 01/16/21 Levothyroxine [Synthroid] 112 mcg PO QDAC 03/04/15 01/16/21 Lisinopril [Zestril] 40 mg PO DAILY 05/21/20 01/16/21 amLODIPine [Norvasc] 5 mg PO DAILY 05/21/20 01/16/21 Amox/Clav 875/125 [Augmentin] 1 each PO Q12H #10 tablet 01/16/21 Docusate Sodium 100Mg Capsule 100 mg PO DAILY #20 cap 01/16/21 [Colace 100Mg Capsule] HYDROcod/ACETAM 5/325 [[place] 5/325] 1 ea PO Q6H PRN #10 tablet 01/16/21 Ondansetron Odt [Zofran] 4 mg TL Q6H PRN #10 tablet 01/16/21 - Allergies Allergies/Adverse Reactions: Allergies Allergy/AdvReac Type Severity Reaction Status Date / Time Sulfa (Sulfonamide Allergy Hives Verified 02/08/21 06:18 Antibiotics) - Social History Does the pt smoke?: No Smoking Status: Never smoker Does the pt drink ETOH?: Yes Does the pt have substance abuse?: No - Immunizations Immunizations are current?: Yes - POLST Patient has POLST: No POLST Status: DNR PD ED PE NORMAL - Vitals Vital signs reviewed: Yes - General General: Alert and oriented X 3, No acute distress, Well developed/nourished - HEENT HEENT: Atraumatic, PERRL, EOMI, Moist mucous membranes, Pharynx benign - Neck Neck: Supple, no meningeal sign - Cardiac Cardiac: RRR - Respiratory Respiratory: No respiratory distress, Clear bilaterally - Abdomen Abdomen: Non tender, Non distended - Derm Derm: Normal color, Warm and dry - Extremities Extremities: No deformity - Neuro Neuro: Alert and oriented X 3, curbing stonecutter 2-12 intact, No motor deficit, No sensory deficit, Normal speech, Other (cerebellar testing unremarkable. NIHSS 0) - Psych Psych: Normal mood, Normal affect Results - Vitals Vitals: Vital Signs - 24 hr 02/08/21 02/08/21 02/08/21 06:10 06:41 07:16 Temperature 36.2 C L Heart Rate 49 L 59 L 66 Respiratory 18 16 16 Rate Blood Pressure 137/90 H 126/76 126/65 O2 Saturation 100 98 97 Oxygen O2 Source Room air - EKG (time done) 0611 Rate: Rate (enter#) (51) Rhythm: Sinus bradycardia [place]: LAD Intervals: Prolonged AK (254) Ischemia: Other (lateral twi seen on previous ekg 05/21/20) Compare to prior EKG: Unchanged from prior EKG (05/21/20) - Labs Labs: Laboratory Tests 02/08/21 02/08/21 06:09 06:09 WBC 6.2 RBC 4.57 L Hgb 12.7 L Hct 40.0 L MCV 87.5 MCH 27.8 MCHC 31.8 L RDW 15.0 Plt Count 252 MPV 8.8 Neut # (Auto) 3.3 Lymph # (Auto) 2.0 [place] # (Auto) 0.6 Eos # (Auto) 0.2 Baso # (Auto) 0.0 Absolute Nucleated RBC 0.00 Nucleated RBC % 0.0 Sodium 135 Potassium 4.0 Chloride 99 L Carbon Dioxide 26 Anion Gap 10.0 BUN 12 Creatinine 1.5 H Estimated GFR (MDRD) 45 L Glucose 104 H Calcium 8.7 Total Bilirubin 0.8 AST 30 ALT 18 Alkaline Phosphatase 78 Total Protein 7.0 Albumin 3.4 Globulin 3.6 Albumin/Globulin Ratio 0.9 L Lipase 29 PD MEDICAL DECISION MAKING - ED course ED course: 85-year-old man presented as code stroke for deficits upon waking this morning that resolved prior to EMS arrival. Will obtain CT head and neck to initiate TIA work-up. Patient without acute findings on CT. does have a drop in his Hb from previous, but without kerwin blood on ANDREINA. FOBT sent. patient had full TIA workup in May 2020 and he does not want to stay for telemetry monitoring/rpt echo/observation today. discussed possibility of intermittent afib as a potential etiology for his ministrokes, though less likely given negative echo in May, and he understands and would prefer to follow up outpatient. strict return precautions discussed. patient will f/u with his pmd. Departure - Departure Disposition: Home, Self Care Clinical Impression: TIA (transient ischemic attack) Condition: Good Instructions: TIA Comments: You were seen in the emergency department for TIA. Your blood hemoglobin dropped a little since last time you were here, so you should follow up with your primary doctor in regards to this. Please also follow up in regards to the TIA and return to the emergency department if you have any new or worsening symptoms or other concerns.
[2021-02-08 06:31] LABS: ALBUMIN 3.4 g/dL (3.2-5.5); ALBUMIN/GLOBULIN RATIO 0.9 (1.0-2.2); BILIRUBIN,TOTAL 0.8 mg/dL (0.2-1.0); CALCIUM 8.7 mg/dL (8.5-10.3); CREATININE 1.5 mg/dL (0.6-1.2)
[2021-02-08] MEDS ORDERED: IOPAMIDOL-300 100 ML VIAL IVP ONE (06:50)
[2021-02-08] MEDS ORDERED: IOPAMIDOL-300 100 ML VIAL ONE (06:53)
[2021-02-08 07:17] VITALS: BP 126/65
--- NOTE | 2021-02-08 07:17 | CT Report ---
PROCEDURE: ANGIO HEAD W/WO INDICATIONS: TIA CONTRAST: IV CONTRAST: Isovue 300 ml: 100 PO CONTRAST: *NO PO CONTRAST TECHNIQUE: Precontrast 4.5 mm thick angled axial sections acquired from the foramen magnum to the vertex. Afte r the administration of intravenous contrast, 1 mm thick sections acquired through the [place] of Will is. Postcontrast 4.5 mm thick sections then re-acquired from the foramen magnum to the vertex. 3-di mensional liupuvy-ylvrbtfgt-fsnjxkvtsl (MIP) and/or volume rendering reformats were acquired of the c entral intracranial vasculature. For radiation dose reduction, the following was used: automated ex posure control, adjustment of mA and/or kV according to patient size. COMPARISON: 05/21/2020. FINDINGS: Image quality: Excellent. Anterior circulation: Intracranial internal carotid arteries are normal in flow. Atherosclerotic adrienne cifications noted in the cavernous and clinoid segments of the internal carotid arteries bilaterally which causes mild narrowing of the vessels. The flow within the paired anterior cerebral arteries is normal and symmetric. The flow within the middle cerebral arteries is normal and symmetric. The ant erior communicating artery is seen. No aneurysms are seen. Posterior circulation: Visualized portions of the vertebral arteries demonstrate normal caliber, and join to form a normal appearing basilar artery. Flow within the posterior cerebral arteries is norm al and symmetric. No aneurysms are seen. Dural sinuses demonstrate normal postcontrast enhancement. CSF spaces: Ventricles are normal in size and shape. Basal cisterns are patent. No extra-axial flu id collections. Brain: No midline shift. No intracranial bleeds or masses. Man-white matter interface appears int act. Skull and face: Calvarium and facial bones appear intact, without suspicious lesions. Sinuses: Visualized sinuses are clear. A few, small air-fluid levels noted in the dependent portions of the mastoid air cells bilaterally. IMPRESSION: 1. No acute intracranial disease process. 2. No large vessel occlusion, hemodynamically significant vascular stenosis, vascular dissection or a neurysm. Reviewed by: Jody Morton MD, PhD on 02/08/2021 7:16 AM PDT Approved by: Jody Morton MD, PhD on 02/08/2021 7:16 AM PDT Station ID: [id number]
--- NOTE | 2021-02-08 07:28 | CT Report ---
PROCEDURE: ANGIO NECK W INDICATIONS: slurring of speech, confusion, fcial droop now res CONTRAST: IV CONTRAST: Isovue 300 ml: 100 PO CONTRAST: *NO PO CONTRAST TECHNIQUE: After the administration of intravenous contrast, 1.5 mm axial sections acquired from the aortic arch to the [place] of [place]. Coronal 3-D maximum intensity projection (MIP) and/or volume rendering ref ormats were then performed. For radiation dose reduction, the following was used: automated exposur e control, adjustment of mA and/or kV according to patient size. COMPARISON: 05/21/2020. FINDINGS: Image quality: Excellent. Carotid system: The great vessels demonstrate a conventional anatomy as they arise from the aortic a rch. The origins of the common carotid arteries appear patent. The common carotid arteries demonstr ate normal calibers and courses. Soft and calcified atherosclerotic plaque noted in the origin of the internal carotid arteries bilaterally which is less than 50% stenosis of the vessels. Posterior circulation: Atherosclerotic plaque in the origin of the right vertebral artery causes mild to moderate stenosis of the vessel. Left vertebral artery origin is fully patent. The more superior portions of the vertebral arteries demonstrate normal course and caliber. They join to form a normal appearing basilar artery. Soft tissues: Visualized neck soft tissues demonstrate no suspicious abnormalities. The thyroid is normal in size and there are no incidental findings. Bones: No suspicious bony lesions. Gross spine Visualized cervical spine appears normally aligned. IMPRESSION: 1. No large vessel occlusion. 2. Less than 50% stenosis of the origins of the internal carotid arteries. 3. 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 4. Left vertebral artery is fully patent. 5. Findings stable compared to 05/21/2020. The estimate of stenosis included in the report of the imaging study was calculated using the NASCET method Reviewed by: Jody Morton MD, PhD on 02/08/2021 7:25 AM PDT Approved by: Jody Morton MD, PhD on 02/08/2021 7:25 AM PDT Station ID: [id number]
[2021-02-08 07:33] LABS: FECAL OCCULT BLOOD (FIT) NEGATIVE (NEGATIVE)
== END 2021-02-08 07:49 | disposition home or self-care (01) ==
LOC: EDUNIT# → ED 06:03
DX: G45.9 Transient cerebral ischemic attack, unspecified (principal); I10 Essential (primary) hypertension; I48.91 Unspecified atrial fibrillation; C18.9 Malignant neoplasm of colon, unspecified; C78.7 Secondary malignant neoplasm of liver and intrahepatic bile duct; Z95.1 Presence of aortocoronary bypass graft; Z66 Do not resuscitate
CPT/HCPCS: 36415; 70496; 70498; 80053; 82274; 83690; 85025; 93005; 99284; 99285; Q9967

== ENCOUNTER 2021-02-14 20:56 | Outpatient (CLI) | payer MEDICARE | END 2021-02-14 20:57 | disposition short-term general hospital (02) | LOC: EMS 20:56 | DX: R55 Syncope and collapse (principal); R10.30 Lower abdominal pain, unspecified | CPT/HCPCS: A0425; A0427 ==

== ENCOUNTER 2021-02-27 09:58 | Outpatient (CLI) | payer MEDICARE | END 2021-02-27 09:59 | disposition EMS.NT | LOC: EMS 09:58 | DX: R53.1 Weakness (principal); R19.7 Diarrhea, unspecified ==

== ENCOUNTER 2021-03-30 13:30 | Outpatient (CLI) | payer MEDICARE ==
--- NOTE | 2021-03-30 15:45 | CONSULTATION NOTE ---
Palliative Care Consultation - Referral Referring Provider: Dr. Goodson Time of Visit: 2752-5278 Referral setting: Home Referral Reason: Metastatic Colon CA with liver mets/Goals of Care - Information Sources Records reviewed: Previous records reviewed History/Review of Systems obtained from: Patient, Family (s/o Samia) Exam limitations: No limitations - History of Present Illness Brief History of Present Illness: This is an 85-year-old gentleman who has had intermittent abdominal discomfort for several months, felt to have been diverticulitis. He has had a history of endovascular aortic aneurysm repair, and so received a CT of the angiogram of the abdominal and pelvis area, which showed new findings of the sigmoid mass and multiple liver mets. He had seen oncology , with arrangements for CT- guided liver biopsy, unfortunately in the meantime he was hospitalized 02/14-02/19 , with C. difficile, subsequently diagnosed with bacterimia and received 2 weeks of intravenous outpatient antibiotic therapy. 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 He did meet with Dr. Saini, and given the treatment would be palliative in nature he had declined chemotherapy due to concerns regarding quality of life. Patient had decided that he as a "spiritual person", knows there is a beginning and it and, and wants to focus on being in the here in the now. In the context of reviewing goals of care, he is no longer pursuing chemotherapeutic interventions, would like to focus on comfort, and planning to take things as they come with no further intervention. After much discussion, did complete POLST with DN AR/DNI and comfort measures. Will transition patient to hospice team, would like daughter to be part of this conversation, so will make arrangements for admit next week. Patient presents with low symptom burden, vague abdominal discomfort, decreased/relieved with bowel movements, no need for pain medication currently. He is using MiraLAX to address any constipation. He does have persistent fatigue, denies anxiety or depression, does have some functional decline and his anorexia has improved and is eating better. He has had weight loss of about 35 to 40 pounds since abdominal pain started in the spring. 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o. Support System: Patient is , he was born in [place], but spent most of his growing up years in [place] till he returned to [facility] 2011. 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 His brother about 5 years ago, is still trying to deal with his estate. He has three daughters, Yesi lives in [place] and others in [place]. He is currently with Samia, they've been together for 8 years. They do live together. She helps him with his ministry at [employer]. Family History - Family History Family History: Mother: ( at age 84/may have had CA dx), Father: , CVA/TIA ( at 90), Sister: , COPD/Emphysema, Mental Illness, Brother: , Cancer (renal ca), CVA/TIA, Other family: Alive and Well (daughter with diabetes type I, 2 others healthy) Medications/Allergies - Medications Home Medications: Ambulatory Orders Medication Instructions Recorded Confirmed Multivitamin [Multivitamins] 1 tab PO DAILY 06/28/14 03/30/21 Cholecalciferol [Vitamin D3] 5,000 unit PO DAILY 03/30/21 03/30/21 Clopidogrel [Plavix] 75 mg PO DAILY 03/30/21 03/30/21 Levothyroxine [Synthroid] 112 mcg PO DAILY 03/30/21 03/30/21 Tamsulosin [Flomax] 0.4 mg PO QPM 03/30/21 03/30/21 Ubidecarenone [Co Q-10] 300 mg PO DAILY 03/30/21 03/30/21 oxyCODONE [Roxicodone] 5 mg PO Q4HR PRN 03/30/21 03/30/21 polyethylene glycoL 3350 [Miralax] 17 gm PO DAILY 03/30/21 03/30/21 - Allergies Allergies/Adverse Reactions: Allergies Allergy/AdvReac Type Severity Reaction Status Date / Time Sulfa (Sulfonamide Allergy Hives Verified 02/08/21 06:18 Antibiotics) Review of Systems - Constitutional Constitutional: reports: Fatigue (needing to nap daily; decreased activity sendy ance), Weakness, Weight loss (was 190...now in 150s) - Eyes Eyes: reports: Vision loss, Corrective lenses - Ears, Nose & Throat Ears, Nose & Throat: reports: Hearing loss, Hearing aids - Cardiovascular Cardiovascular: reports: Exertional dyspnea, Decr. exercise tolerance. denies: Chest pain, Edema - Respiratory Respiratory: reports: SOB with exertion. denies: SOB at rest - Gastrointestinal Gastrointestinal: reports: Abdominal pain (intermittent; relieved with stooling) - Genitourinary Genitourinary: reports: Frequency, Nocturia (distressing up 3-4 x a night; not taking tamulosin) - Musculoskeletal Musculoskeletal: reports: Muscle weakness - Neurological Neurological: reports: General weakness, Memory problems (mild) - Psychiatric Psychiatric: denies: Depression, Anxiety - Endocrine Endocrine: reports: Hypothyroidism - Hematologic/Lymphatic Hematologic/Lymph: reports: Recurrent infections (recent treatment for bacterimia and C. diff) - All Other Systems All Other Systems: reports: Reviewed and negative Physical Exam - Vital Signs Temperature: 97.2 C Pulse Rate: 83 Respiratory Rate: 18 O2 Saturation: 99 (ra @ rest) Blood Pressure: 132/78 - Physical Exam General Appearance: positive: No acute distress, Alert Eyes Bilateral: positive: Normal inspection ENT: positive: No signs of dehydration Neck: positive: Trachea midline Cardiovascular: positive: Regular rate & rhythm Respiratory: positive: No respiratory distress, Breath sounds nml Abdomen: positive: Non-tender, Soft. negative: Mass, Distended Skin: positive: Pallor, Dryness Extremities: positive: No pedal edema Neurologic/Psychiatric: positive: Oriented x3, Mood/affect nml, Flat affect Palliative Care - POLST Patient has POLST: Yes POLST Status: DNR, Comfort Measures (completed at visit) Pain: Pain unchanged, Location (mid abdominal; relieved with bowel movements) Tiredness/Fatigue: Moderate (4-6) Drowsiness/Sedation: Mild (1-3) Nausea: None Anorexia: Mild (1-3) (eating better after finished AB) Dyspnea: Mild (1-3) Depression: None Anxiety: None Feelings of wellbeing/Perceived Quality of Life: Good, Acceptable, Improved Constipation: Yes, Managed (using Miralax) Performance Status: Patient able to identify having decreasing activity tolerance, only able to participate when energy is up. Is taking naps during the day, currently is managing his ADLs. Answered questions regarding significant other's concerns for bathing assist when needed, reviewed hospice would provide that support but not 30/01 care. - Palliative Care Discussion: Long discussion regarding patient's review of his current illness. He perceives himself as a spiritual person, knows his the beginning and end, would be okay if his got delivered him in a remission is fine. He is realistic, he comes from [employer] background. 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 It is very important as far as his sikhism is a personal walk with God, he wants to take things day by day, moment by moment. He finds solace in standing together, he reports he has an optimistic attitude for life but is very realistic. But was not clear for him was really what to expect. We discussed given he is not going to have treatment, his cancer will progress, the recent he got a referral to hospice as on average patients without treatment have an average life expectancy of 6 months. This could be more or it certainly could be less. Discussed the analogy of a car running at a gas, but concerned regarding his going into the "ditch" as he does have potential for bowel obstruction. In discussing the POLST/DN I, we discussed a focus on comfort. He would like to at home though he deferred this decision to his significant other Samia. She had lost her to leukemia, who had undergone treatment for 2 years and had a fairly rapid demise without support of hospice. Counseling provided regarding the hospice benefit and what support might be versus palliative care. Given patient's goals, patient's high risk for needing on-call services, and poor prognosis it was decided to transition to hospice. He would like his daughter Yesi who lives in [place], to be part of that conversation. There was some discussion about DPOA, it may actually be his daughter Maranda, he would like Samia to be able to have some input, so may need to be readdressed through social work. Impression and Recommendations - Palliative Care Impression: This is a shaunna 85-year-old gentleman who presents with stage IV colon cancer with mets to liver. He has low symptom burden with fatigue, intermittent constipation and mild abdominal pain. Palliative care introduced to patient, after goals of care discussion, decision has been made to transition to hospice team. Recommendations/Counseling Done: 1. Metastatic colon cancer with liver mets. Counseling provided regarding natural disease trajectory, concerns for possible bowel obstruction, and given no treatment expected prognosis of 6 months or less. Patient is hoping for the best, with some quality and quantity of time. He is after much discussion more realistic about his course, and weighing benefits and burdens will transition to hospice team. 2. BPH. Patient complaining of significant nocturia, patient does have a prescription for tamulosin. Counseling provided regarding role of medication and BPH, instructed to restart. Unclear if patient had other initiated. He does have some mild short-term memory deficits particularly related to medications. Instructed to take after evening meal. 3. Hypertension. Patient has had history of hypertension, more recently hypotension. Patient currently not on in a blood pressure medication, will continue to monitor. 4. Abdominal discomfort. Patient does not perceive discomfort significant enough to take medication, he does have oxycodone 5 mg tab prescription there. He does get relief with bowel movements, instructed to continue his daily MiraLAX for soft daily BM. 5. Advanced care planning. POLST with DN AR/DNI and comfort measures. Discussed goals were to focus on comfort, taking things day by day, spending time with family, and end-of-life a comfortable respectful . Instructions given to put on refrigerator. Counseling provided regarding hospice benefit, hospice versus palliative care, and psychosocial support. 75 minutes with greater than 50% of this done in counseling regarding goals of care, anticipatory guidance, disease trajectory information, providing psychosocial support, counseling regarding hospice and palliative care. Coordination of care with hospice team.
== END 2021-03-30 13:31 | disposition home or self-care (01) ==
LOC: PC 13:30
PROVIDERS: ATTEND Nurse Practitioner Adult Health
DX: Z51.5 Encounter for palliative care (principal); R53.83 Other fatigue; K59.00 Constipation, unspecified; G89.3 Neoplasm related pain (acute) (chronic); R41.3 Other amnesia; R53.1 Weakness; R63.0 Anorexia; R63.4 Abnormal weight loss; I10 Essential (primary) hypertension; N40.1 Benign prostatic hyperplasia with lower urinary tract symptoms; R35.1 Nocturia; C18.7 Malignant neoplasm of sigmoid colon; C78.7 Secondary malignant neoplasm of liver and intrahepatic bile duct; Z79.899 Other long term (current) drug therapy; Z86.19 Personal history of other infectious and parasitic diseases; Z66 Do not resuscitate
CPT/HCPCS: 99345